=== PATIENT | male | born 1990 | race Two or more races ===

== ENCOUNTER → 2020-04-27 15:06 | Outpatient (REF) | payer MEDICAID, SELFPAY ==
--- NOTE | 2020-04-27 15:00 | CA_ITS ---
Transthoracic Echocardiogram Patient (Last, First, Middle): Angus Castro, Gender: Male Date of : 1990 Age: 30 Procedure Date: 04/27/2020 Procedure Type: Transthoracic Echocardiogram Location: OP Height: 162.56 cm Weight: 81.65 kg BSA: 1.87 m2 Heart Rate: bpm BP: 116 / 69 mmHg Rn Spine: Referring MD: Pee Villalobos MD Symptoms: Q85.00 NEURO FIBROMATOSIS Z09 FOLLOW UP CHEMOTHERAPY EXAM Study Quality: Good ECG Rhythm: Sinus Conclusions: - The left ventricular systolic function is normal. The visually estimated ejection fraction is between 60-65%. - Left ventricular global endocardial peak longitudinal strain 18.5% (normal). Findings Left Ventricle Normal left ventricular cavity size. There is normal left ventricular wall thickness. The left ventricular systolic function is normal. The visually estimated ejection fraction is between 60-65%. There is no evidence of regional wall motion abnormalities. Left ventricular global endocardial peak longitudinal strain -18.5% (normal). Right Ventricle Normal right ventricular cavity size and systolic function. Prior Study Comparison No significant change compared to prior study dated: 01/19/2020. Measurements 2D Systolic Function EF 4C: 61.10 >55% EF 2C: 61.70 >55% EF BiP: 62.20 >55% Updated in Other Vendor System with Status of Final Pee Villalobos MD electronically signed on 04/30/2020 1:54:07 PM with status of Final
== END ==
LOC: HO.CARD 15:06
PROVIDERS: PCP Internal Medicine; Visit Provider Internal Medicine
DX: Q85.00 Neurofibromatosis, unspecified (principal); Z09 Encounter for follow-up examination after completed treatment for conditions other than malignant neoplasm
CPT/HCPCS: 93308; 93356

== ENCOUNTER → 2020-05-03 13:34 | Outpatient (BNVA) | payer MEDICAID, SELFPAY | PROVIDERS: PCP Internal Medicine; Visit Provider Internal Medicine | DX: Q85.00 Neurofibromatosis, unspecified (principal); T50.995D Adverse effect of other drugs, medicaments and biological substances, subsequent encounter | CPT/HCPCS: 93005; 99212 ==

== ENCOUNTER 2022-10-12 19:00 | Emergency (ER) | payer MEDICAID, SELFPAY ==
--- NOTE | ~2022-10-12 | XR_ITS ---
EXAMINATION: XR CHEST CLINICAL INFORMATION: Cough and shortness of breath. COMPARISON: None available. TECHNIQUE: 2 views of the chest were obtained. FINDINGS: No significant abnormality is noted involving the heart, lungs, mediastinum, bony thorax or soft tissues. XR/XR chest 2V IMPRESSION: Unremarkable examination.
[2022-10-12 19:08] VITALS: BP 113/74; PULSE 107; RESP 18; TEMP 36.2; O2SAT 95; BMI 24.2
--- NOTE | 2022-10-12 19:09 | ED.URI ---
HPI - URI/Sore Throat General Chief Complaint: Dyspnea Stated Complaint: sob, cough Time Seen by Provider: 10/12/22 19:49 Source: patient and android ios developer (Mongolian) Mode of arrival: ambulatory History of Present Illness HPI Narrative: 32-year-old male who is a heavy smoker of cigarettes as well as vaping and presents with 4 days of a feeling of chest tightness, shortness of breath and cough. 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 Patient also denies any sick contacts. Related Data Home Medications Medication Instructions Recorded Confirmed lisinopril 20 mg tablet 20 mg PO DAILY 05/03/20 05/03/20 Previous Rx's Medication Instructions Recorded albuterol sulfate 90 mcg/actuation 2 puff inhalation Q4-6H PRN 10/12/22 aerosol inhaler (Ventolin HFA) shortness of breath or wheezing #8.5 grams prednisone 50 mg tablet 50 mg PO DAILY 4 days #4 tabs 10/12/22 Allergies Allergy/AdvReac Type Severity Reaction Status Date / Time No Known Allergies Allergy Verified 05/03/20 13:39 Review of Systems Review of Systems: Pertinent positives and negatives as stated in HPI PMFSH Past Medical History Source: nursing notes reviewed Medical History Chemotherapy follow-up examination Neurofibromatosis Surgical History History of facial surgery Family History Family History Father No problems noted. Mother No problems noted. Social History Social History Smoked in Last 30 Days: Yes Use of substances other than those prescribed or required for medical reasons: No Advance Directives: No Advance Directives Information Provided: No Physical Exam Vital Signs: Vital Signs: Last Vital Signs Temp 98.7 F 10/12/22 21:17 Pulse 109 H 10/12/22 21:51 Resp 18 10/12/22 21:51 BP 122/71 10/12/22 21:51 Pulse Ox 98 10/12/22 21:51 O2 Del Method Room Air 10/12/22 21:51 BMI result Body Mass Index 24.2 VITAL SIGNS: Reviewed. GENERAL: Well developed, well nourished, in no acute distress. HEAD: Normocephalic/atraumatic EYES: PERRLA, EOMI on the right EARS: Ext canals without abnormality NOSE: Nares patent bilateral OROPHARYNX: no oral lesions noted, posterior pharynx clear and non-erythematous without noted tonsillar enlargement/erythema/exudates NECK: Supple, no adenopathy LUNGS: Good inspiratory effort, coarse rhonchi throughout with mild expiratory wheeze, mild tachypnea. SpO2<98> CARDIOVASCULAR: Regular rate and rhythm without noted murmurs, no JVD or lower extremity edema. ABDOMEN: Soft, non-tender, non-distended with bowel sounds. MUSCULOSKELETAL: No tenderness, deformities, or effusions noted on gross inspection. EXTREMITIES: No cyanosis, clubbing or edema. SKIN: Inspection of the skin reveals no rashes NEUROLOGIC: Alert and oriented x 4. Strength and sensation to light touch were grossly intact x 4. Course Course Course Narrative: This is a rapid medical exam. Deferred additional HPI, ROS, PE to primary provider. 32yo male hungarian speaking with history of NF here with complaints of shortness of breath, cough, chest discomfort x 4 days. No recent travel or sick contact. +wheezing on exam. Will check CXR, viral testing, give albuterol MDI. VSS Medications Administered Discontinued Medications Generic Name Dose Route Start Last Admin Trade Name Freq PRN Reason Stop Dose Admin Albuterol Sulfate 10 mg 10/12/22 19:55 10/12/22 20:03 Albuterol Sulfate (0.083%) 2.5 Mg/3 Ml Vial.Neb INHALE 10/12/22 19:56 10 mg ONCE ONE Administration Albuterol/Ipratropium 3 ml 10/12/22 21:17 10/12/22 21:33 Albuterol/Iprat 2.5/0.5mg 3 Ml Ampul.Neb INHALE 10/12/22 21:18 3 ml ONCE ONE Administration Methylprednisolone Sodium Succinate 125 mg 10/12/22 19:55 10/12/22 20:38 Methylprednisolone Sod Succ 125 Mg/2 Ml Vial IVPUSH 10/12/22 19:56 125 mg ONCE ONE Administration Medical Decision Making Medical Decision Making MDM Narrative: 32-year-old male with history and clinical presentation in conjunction with laboratory workup my interpretation is as patient has had a COPD exacerbation with VBG demonstrating pCO2 of 62. Patient received multiple nebulized treatments, IV dose steroids, has never been hypoxic and is otherwise remained hemodynamically stable. Patient is already on Tessalon, azithromycin. Who will be discharged with a Ventolin inhaler as well as a short course of steroids and strict instructions to follow-up with his primary care provider. Differential Diagnosis Please see the discussion above Lab Data Please see the discussion above 10/12/22 20:35 10/12/22 20:35 Labs: Lab Results 10/12/22 10/12/22 10/12/22 Range/Units 19:23 20:35 20:35 WBC 8.6 (4.8-10.8) X10*3/uL RBC 6.85 H (4.60-5.80) X10*6/uL Hgb 13.9 L (14.0-18.0) g/dl Hct 45.4 (42.0-52.0) % MCV 66.3 L (80.0-98.0) fL MCH 20.3 L (27.0-33.0) pg MCHC 30.6 L (31.0-36.0) g/dl RDW 17.2 H (11.0-16.0) % Plt Count 211 (160-400) X10*3/uL MPV 9.7 (9.4-12.4) fL Immature Gran % (Auto) 0.1 (0.0-0.4) % Neut % (Auto) 60.7 (45-73) % Lymph % (Auto) 24.0 (20-40) % Leslie % (Auto) 6.5 (2-11) % Eos % (Auto) 8.1 H (0-4) % Baso % (Auto) 0.6 (0-2) % Lymph # (Auto) 2.1 (1.2-4.9) X10*3/uL Leslie # (Auto) 0.6 (0.1-1.2) X10*3/uL Eos # (Auto) 0.7 H (0.0-0.4) X10*3/uL Baso # (Auto) 0.1 (0.0-0.2) X10*3/uL Abs Immat Gran (auto) 0.01 (0.00-0.03) X10*3/uL Absolute Neuts (auto) 5.2 (2.0-8.3) x10*3/uL Absolute Nucleated RBC 0.000 (0.0-0.012) X10*3/uL Nucleated RBC % (auto) 0.0 (0.0-0.2) /100WBC VBG pH (7.32-7.43) VBG pCO2 mmHg VBG pO2 mmHg VBG HCO3 (22-26) mmol/L VBG O2 Saturation % VBG Base Excess mmol/L Sodium 145 (135-145) mmol/L Potassium 3.8 (3.3-5.1) mmol/L Chloride 107 (96-108) mmol/L Carbon Dioxide 27 (22-29) mmol/L Anion Gap 15 (12-20) BUN 22 H (9-16) mg/dL Creatinine 1.06 (0.5-1.4) mg/dL Estim Creat Clear Calc 91.9 Estimated GFR > 60 Random Glucose 103 (60-115) mg/dL Calcium 10.0 (8.4-10.2) mg/dL Total Bilirubin 0.7 (0.0-1.0) mg/dL AST 13 (5-37) U/L ALT 13 (0-40) U/L Alkaline Phosphatase 72 (39-117) U/L B-Natriuretic Peptide (<100) pg/mL Total Protein 7.8 (6.5-8.0) g/dL Albumin 4.4 (3.5-5.0) g/dL Influenza Type A (PCR) NEGATIVE (Negative) Influenza Type B (PCR) NEGATIVE (Negative) RSV RNA Qual (PCR) NEGATIVE (Negative) SARS-CoV-2 RNA (RT-PCR) NEGATIVE (Negative) 10/12/22 10/12/22 Range/Units 20:35 20:38 WBC (4.8-10.8) X10*3/uL RBC (4.60-5.80) X10*6/uL Hgb (14.0-18.0) g/dl Hct (42.0-52.0) % MCV (80.0-98.0) fL MCH (27.0-33.0) pg MCHC (31.0-36.0) g/dl RDW (11.0-16.0) % Plt Count (160-400) X10*3/uL MPV (9.4-12.4) fL Immature Gran % (Auto) (0.0-0.4) % Neut % (Auto) (45-73) % Lymph % (Auto) (20-40) % Leslie % (Auto) (2-11) % Eos % (Auto) (0-4) % Baso % (Auto) (0-2) % Lymph # (Auto) (1.2-4.9) X10*3/uL Leslie # (Auto) (0.1-1.2) X10*3/uL Eos # (Auto) (0.0-0.4) X10*3/uL Baso # (Auto) (0.0-0.2) X10*3/uL Abs Immat Gran (auto) (0.00-0.03) X10*3/uL Absolute Neuts (auto) (2.0-8.3) x10*3/uL Absolute Nucleated RBC (0.0-0.012) X10*3/uL Nucleated RBC % (auto) (0.0-0.2) /100WBC VBG pH 7.38 (7.32-7.43) VBG pCO2 62 mmHg VBG pO2 41 mmHg VBG HCO3 37 H (22-26) mmol/L VBG O2 Saturation 65.0 % VBG Base Excess 9.8 mmol/L Sodium (135-145) mmol/L Potassium (3.3-5.1) mmol/L Chloride (96-108) mmol/L Carbon Dioxide (22-29) mmol/L Anion Gap (12-20) BUN (9-16) mg/dL Creatinine (0.5-1.4) mg/dL Estim Creat Clear Calc Estimated GFR Random Glucose (60-115) mg/dL Calcium (8.4-10.2) mg/dL Total Bilirubin (0.0-1.0) mg/dL AST (5-37) U/L ALT (0-40) U/L Alkaline Phosphatase (39-117) U/L B-Natriuretic Peptide < 10 (<100) pg/mL Total Protein (6.5-8.0) g/dL Albumin (3.5-5.0) g/dL Influenza Type A (PCR) (Negative) Influenza Type B (PCR) (Negative) RSV RNA Qual (PCR) (Negative) SARS-CoV-2 RNA (RT-PCR) (Negative) Independent Interpretation I performed an independent interpretation of an: EKG Interpretation: Normal sinus rhythm, HR-90, no STEMI, [place]/QRS/QTC is within normal limits. Radiology Impression Radiologist Impression: My interpretation is in agreement with radiology's impression. External Record Review External record reviewed: Prior outpatient labs Discharge Plan Discharge Clinical Impression: COPD exacerbation Patient Disposition: Home, Self-Care Instructions: COPD (Chronic Obstructive Pulmonary Disease) (ED) Additional Instructions: 1. astanif harley ray'panchitoat ezequiel odonnell. 2. yurjashantell 'iikmal jimenezawradale quilesasiandres lovellshpatty. 3. laqirina moralestajasbir wasashli gaytanigrant stokesjiantonia andersenastinsusana haile 'latonialashantell valencia altanafusi. 4. vincentrlance ray'ros zimmerman. 1. Resume all medications that you are currently taking. 2. Please complete the short course of steroids. 3. I have given you a prescription for an inhaler which you need to use as prescribed for feelings of shortness of breath. 4. Please follow-up with your primary care provider tomorrow. Prescriptions: New albuterol sulfate [Ventolin HFA] 90 mcg/actuation HFA aerosol inhaler 2 puff inhalation Q4-6H PRN (Reason: shortness of breath or wheezing) Qty: 8.5 0RF prednisone 50 mg tablet 50 mg PO DAILY 4 Days Qty: 4 0RF No Action lisinopril 20 mg tablet 20 mg PO DAILY
--- NOTE | 2022-10-12 19:44 | ECG_ITS ---
Test Reason : chest pain Blood Pressure : / mmHG Vent. Rate : 090 BPM Atrial Rate : 090 BPM P-R Int : 158 ms QRS Dur : 078 ms QT Int : 342 ms P-R-T Axes : 065 081 066 degrees QTc Int : 418 ms Normal sinus rhythm Normal ECG No previous ECGs available Referred By: Generic ED Physician Electronically Signed By:ISABELL HOU MD
[2022-10-12] MEDS: Albuterol Sulfate (0.083%) 2.5 MG/3 ML VIAL.NEB 10 MG INHALE (20:03)
[2022-10-12 20:04] VITALS: PULSE 94; RESP 12; O2SAT 100
[2022-10-12 20:24] LABS: Influenza A PCR NEGATIVE (Negative); Influenza B PCR NEGATIVE (Negative); Resp Syncy Virus RNA Qual PCR NEGATIVE (Negative); SARS COV2 PCR INHOUSE NEGATIVE (Negative)
[2022-10-12] MEDS: methylPREDNISolone Sod Succ 125 MG/2 ML VIAL IVPUSH (20:38)
[2022-10-12 20:41] VITALS: BP 156/74; PULSE 117; RESP 24; TEMP 37.1; O2SAT 100
[2022-10-12 20:41] LABS: MANUAL DIFF FLAG NO
[2022-10-12 20:42] LABS: Basophils Absolute Auto 0.1 X10*3/uL (0.0-0.2); Basophils Percent Auto 0.6 % (0-2); Eosinophils Absolute Auto 0.7 X10*3/uL (0.0-0.4); Eosinophils Percent Auto 8.1 % (0-4); Hematocrit 45.4 % (42.0-52.0); Hemoglobin 13.9 g/dl (14.0-18.0); Imm Gran Abs Auto 0.01 X10*3/uL (0.00-0.03); Imm Gran Pct Auto 0.1 % (0.0-0.4); Lymphocytes Absolute Auto 2.1 X10*3/uL (1.2-4.9); Mean Corpuscular HGB Conc 30.6 g/dl (31.0-36.0); Mean Corpuscular Hemoglobin 20.3 pg (27.0-33.0); Mean Corpuscular Volume 66.3 fL (80.0-98.0); Mean Platelet Volume 9.7 fL (9.4-12.4); Monocytes Absolute Auto 0.6 X10*3/uL (0.1-1.2); Monocytes Percent Auto 6.5 % (2-11); Neutrophils Absolute Auto 5.2 x10*3/uL (2.0-8.3); Neutrophils Percent Auto 60.7 % (45-73); Platelet Count 211 X10*3/uL (160-400); Red Blood Count 6.85 X10*6/uL (4.60-5.80); Red Cell Distribution Width 17.2 % (11.0-16.0); White Blood Count 8.6 X10*3/uL (4.8-10.8)
[2022-10-12 20:45] LABS: VBG Base Excess 9.8 mmol/L; VBG HCO3 37 mmol/L (22-26); VBG pCO2 62 mmHg; VBG pH 7.38 (7.32-7.43); VBG pO2 41 mmHg
[2022-10-12 20:47] LABS: Venous Blood Gas Refer to POC result
[2022-10-12 20:56] LABS: Alanine Aminotransferase 13 U/L (0-40); Albumin Level 4.4 g/dL (3.5-5.0); Alkaline Phosphatase 72 U/L (39-117); Anion Gap 15 (12-20); Aspartate Amino Transferase 13 U/L (5-37); Bilirubin Total 0.7 mg/dL (0.0-1.0); Blood Urea Nitrogen 22 mg/dL (9-16); Carbon Dioxide 27 mmol/L (22-29); Chloride 107 mmol/L (96-108); Creatinine Clr Calc Pharmacy 91.9; Estimated Glomerular Filt Rate > 60; Glucose Random 103 mg/dL (60-115); Potassium 3.8 mmol/L (3.3-5.1); Sodium 145 mmol/L (135-145); Total Protein 7.8 g/dL (6.5-8.0)
[2022-10-12 21:02] LABS: B Type Natriuretic Peptide < 10 pg/mL (<100)
[2022-10-12 21:17] VITALS: BP 121/73; PULSE 105; RESP 17; TEMP 37.1; O2SAT 98
[2022-10-12] MEDS: Albuterol/Iprat 2.5/0.5MG 3 ML AMPUL.NEB INHALE (21:33)
[2022-10-12 21:34] VITALS: PULSE 116; RESP 22; O2SAT 98
[2022-10-12 21:51] VITALS: BP 122/71; PULSE 109; RESP 18; O2SAT 98
--- NOTE | 2022-10-12 21:56 | PC.NURSE ---
Pt aox4 resting at the bedside in no apparent distress. Khmer supervisor contact lens utilized. Pt reports improved breathing after albuterol treatments. Pain continues, 6/10, on the chest with cough. Sinus tach on the monitor with hr 113. Breaths are even, regular and unlabored with equal chest rises. O2 sat 98% RA. RR: 22. Abd soft and nontender with + bowel sounds in all quadrants. Skin is warm pink and dry. No apparent distress noted. Pt expresses interest in quitting smoking. Smoking cessation education provided and advised to follow up with pcp for further treatment evaluation. Pt aware of plan of care.
--- NOTE | 2022-10-12 22:51 | PC.NURSE ---
Discharge instructions reviewed with pt via video order builder. Pt verbalizes understanding and all questions answered. IV line removed. Pt tolerated well. Pt ambulatory with steady gait at discharge. No apparent distress noted.
== END 2022-10-12 22:51 | disposition home or self-care (01) ==
PROVIDERS: Emergency Provider Student in an Organized Health Care Education/Training Program
DX: J44.1 Chronic obstructive pulmonary disease with (acute) exacerbation (principal); R06.02 Shortness of breath; R05.9 Cough, unspecified; R07.89 Other chest pain; Z79.899 Other long term (current) drug therapy; Z20.822 Contact with and (suspected) exposure to COVID-19; Z20.828 Contact with and (suspected) exposure to other viral communicable diseases
CPT/HCPCS: 0241U; 36415; 71046; 80053; 82803; 83880; 85025; 93005; 94640; 96374; 99284; 99285; J2930

== ENCOUNTER 2023-01-15 14:08 | Emergency (ER) | payer MEDICAID, SELFPAY | END 2023-01-15 16:23 | disposition left against medical advice (07) | PROVIDERS: Emergency Provider Emergency Medicine; PCP Internal Medicine | DX: R07.89 Other chest pain (principal) ==

== ENCOUNTER 2023-02-07 14:00 | Outpatient (RCR) | payer MEDICAID, SELFPAY | END 2023-03-12 11:46 | disposition home or self-care (01) | LOC: HO.PT 14:00 | PROVIDERS: PCP Internal Medicine; Visit Provider Internal Medicine | DX: M54.16 Radiculopathy, lumbar region (principal) | CPT/HCPCS: 97110; 97140; 97162 ==

== ENCOUNTER 2023-03-12 13:39 | Outpatient (AMB) | payer MEDICAID, SELFPAY ==
--- NOTE | 2023-03-12 13:44 | A.OFFVIS_ITS ---
Intake Vital Signs 3 03/12/23 13:46 Height 5 ft 5 in Weight 165 lb BMI 27.5 Blood Pressure Location Lt brachial Position Sitting Respiration 12 Pulse Source Pulse Oximeter Intake Visit Reasons: LUMBAR RADICULOPATHY Feller Operator Required: Yes Feller Operator Name: [id number] Norma Allergies No Known Allergies Allergy (Verified 03/12/23 13:47) Medication List - Last Reconciled 03/12/23 by Mariann Echeverria LPN albuterol sulfate 90 mcg/actuation (Ventolin HFA) 2 puffs inhalation Q4-6H PRN lisinopril 20 mg PO DAILY prednisone 50 mg PO DAILY 4 days HPI LUMBAR RADICULOPATHY 2 HPI0 Details 33-year-old male who presents today to t he office for an evaluation of lumbar radiculopathy. A certified Bengali parking enforcement officer was present during the visit. The patient is status post posterior L4-L5 discectomy/decompression on 04/12/[address] Walker in [place]. The patient reports chronic back pain that started worsening about four months ago. The pain has been waxing and waning since onset. He rates his pain at 6/10 in intensity. His pain is worse on the right side than left side. The pain is moderate and symptoms aggravate by bending. He has tried NSAIDs and muscle relaxant for the symptoms with mild relief. He denies any neurologic deficit. He had an MRI scan that showed some worsening listhesis, both laterally and anteriorly, of the L3 and L4 vertebral bodies with unroofing of the associated discs. There was no significant compression of the nerve roots. He has not consulted spine surgery recently. [facility] Medical History (Updated 03/13/23 @ 12:34 by Nate Braun MD) Dermatitis Primary hypertension Lumbar radiculopathy Chemotherapy follow-up examination Neurofibromatosis Surgical History History of facial surgery Family History Father No problems noted. Mother No problems noted. Review of Systems Const All systems reviewed & are unremarkable except as noted in HPI and below Physical Exam Vital Signs: Last Vital Signs Resp 12 03/12/23 13:46 BMI result Body Mass Index 27.5 General: Appears afebrile. Alert and oriented. Mood and affect appropriate. Follows and participates in conversation appropriately. Respiratory effort is unlabored. Able to transition from sit to stand unassisted. Ambulates with bilaterally normal heel strike and toe off. There are well-healed scars from prior surgeries in the lumbar spine as well as resection of soft tissue tumors within the paraspinal region. Results Reviewed Results Reviewed: 02/09/23: MR LUMBAR SPINE WO CONTRAST Assessment & Plan Assessment & Plan (1) Spinal instability of lumbosacral region: Code(s): M53.2X7 - Spinal instabilities, lumbosacral region (2) Spondylolisthesis of lumbar region: Code(s): M43.16 - Spondylolisthesis, lumbar region Plan 33-year-old male with a past history of L4-5 diskectomy/decompression for a disc herniation now presenting with axial low back pain. His recent MRI shows progression of spondylolisthesis that was previously seen on his MRI in 2019. He has both anterior as well as lateral listhesis in the lumbar spine. While he does not have any neurologic deficits at this time, I feel that he should discuss this progressive spondylolisthesis with a spine surgeon to assess the need for stabilization/fusion. I encouraged him to seek a surgical consult to discuss this issue. If he is deemed nonsurgical we can consider spinal cord stimulation for his axial low back pain, with the understanding that his spondylolisthesis will likely continue to progressively worsen over time. A referral was provided to Dr. Ogden at [facility] neurosurgery for consultation upon patient's request. Scribed for Dr. Braun by Jaswant France, medical practitioners, on 03/12/2023. I, Dr. Braun, have personally reviewed and agree with the information entered by the scribe. Orders: Referrals 2 Neurosurgery Referral M53.2X7 - Spinal instabilities, lumbosacral region Coding Level of Care Code New Pt Level 4 (44095) Diagnoses Spinal instability of lumbosacral region M53.2X7 Spondylolisthesis of lumbar region M43.16
[2023-03-12 13:46] VITALS: RESP 12; BMI 27.5
== END 2023-03-12 14:55 | disposition home or self-care (01) ==
PROVIDERS: PCP Internal Medicine; Referring Provider Internal Medicine; Visit Provider Internal Medicine
DX: M53.2X7 Spinal instabilities, lumbosacral region (principal); M43.16 Spondylolisthesis, lumbar region
CPT/HCPCS: 99204

== ENCOUNTER → 2023-03-12 13:39 | Outpatient (BNVA) | payer MEDICAID, SELFPAY | PROVIDERS: PCP Internal Medicine; Referring Provider Internal Medicine; Visit Provider Internal Medicine | DX: M53.2X7 Spinal instabilities, lumbosacral region (principal); M43.16 Spondylolisthesis, lumbar region | CPT/HCPCS: 99202 ==

== ENCOUNTER 2023-10-29 09:57 | Outpatient (AMB) | payer MEDICAID, SELFPAY ==
--- NOTE | 2023-10-29 10:24 | MHC.OFFVIS ---
Vital Signs 10/29/23 10:25 Height 5 ft 5 in Weight 180 lb 12.465 oz BMI 30.1 BP 110/70 Blood Pressure Location Lt brachial Position Sitting Pulse 78 Pulse Source Pulse Oximeter Pulse Oximetry (%) 98 Oxygen Delivery Method Room Air Intake Visit Reasons: asthma Intake Note: pt is here as a new patient, he states very little shortness of breath, had admission at [facility] 3 months ago for shortness of breath Accounts Payable Or Receivable Clerk Required: Yes Accounts Payable Or Receivable Clerk Name: [id number] Allergies No Known Allergies Allergy (Verified 10/29/23 11:36) Medication List - Last Reconciled 10/29/23 by Cynthia Shook MD albuterol sulfate 90 mcg/actuation (Ventolin HFA) 2 puffs inhalation Q4-6H PRN fluticasone furoate-vilanterol 200-25 mcg/dose (Breo Ellipta) 1 inh inhalation DAILY lisinopril 20 mg PO DAILY Do you need a note to return to daycare/school/sports/work: No HPI HPI asthma: Details: THIS GENTLEMAN IS 33 YEARS OLD, ORIGINALLY FROM [place], SPEAKS ONLY [place]HAL[place], COMES HERE TODAY FOR THE 1ST TIME, FOR EVALUATION AND MANAGEMENT OF BRONCHIAL ASTHMA. HE IS ACCOMPANIED BY HIS FATHER, WHO SPEAKS SOME THAI. LITHOGRAPHIC ETCHER WAS USED FOR BETTER COMMUNICATION. 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 HE HAS BEEN A NONSMOKER. IN THE LAST 3 MONTHS HE HAS BEEN SEEN AT [facility] A FEW TIMES FOR BREATHING TROUBLE. HE WAS STARTED ON BREO 200-251 INHALATION DAILY, AND ALSO GIVEN VENTOLIN 2 PUFFS Q 6 HOURS P.R.N.. SINCE HE IS ON BREO HIS BREATHING HAS BEEN OKAY, HE DOES HAVE MILD INTERMITTENT COUGH, BUT HAS HAD NO WHEEZING. HE CAN WALK AROUND WITHOUT ANY SHORTNESS OF BREATH. HE HAS HAD NO RECURRENT RESPIRATORY INFECTION. HE HAS NOT NEEDED TO USE THE RESCUE INHALER MUCH. [facility] Medical History (Updated 10/29/23 @ 11:48 by Cynthia Shook MD) Asthma Dermatitis Primary hypertension Lumbar radiculopathy Chemotherapy follow-up examination Neurofibromatosis Surgical History History of facial surgery Family History Father No problems noted. Mother No problems noted. Review of Systems Const All systems reviewed & are unremarkable except as noted in HPI and below Eyes Reports other (LEFT EYE, ATROPHIC AND BLIND SINCE ) ENT Reports no additional complaints Card Reports no additional complaints Resp Reports as per HPI GI Reports no additional complaints Reports no additional complaints Musc Reports no additional complaints Skin/Breast Reports system reviewed and no additional complaints, except as documented Neuro Reports no additional complaints Psych Reports no additional complaints Endo Reports no additional complaints Ronnie/Lymph Reports no additional complaints Physical Exam Vital Signs: Last Vital Signs Pulse 78 10/29/23 10:25 BP 110/70 10/29/23 10:25 Pulse Ox 98 10/29/23 10:25 Oxygen Delivery Method Room Air 10/29/23 10:25 BMI result Body Mass Index 30.1 Const General: healthy appearing, comfortable, no acute distress, alert and awake Orientation/consciousness: patient oriented x3 HEENT Other: 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 Head: Yes normal to inspection General nose exam: No nasal polyps present and No nasal discharge present Face and sinus: Yes sinuses nontender Mouth: oropharynx normal Throat: Yes posterior oropharynx normal Eyes Other: LEFT EYE IS ATROPHIC. HE IS BLIND ON THE LEFT SIDE RIGHT EYE IS NORMAL Neck Neck: Yes normal visual inspection, Yes no lymphadenopathy, Yes trachea midline and Yes no JVD Thyroid: Thyroid normal Chest Chest palpation & inspection: normal inspection of the chest, normal palpation of entire chest wall and no tenderness Resp Other: TODAY THE PERCUSSION NOTE IS NORMAL AND HIS BREATH SOUNDS ARE EQUAL ON BOTH SIDES. Effort & Inspection: normal respiratory effort Auscultation: clear to auscultation bilaterally, no crackles and no wheezes Cardio Palpation: normal PMI Rate: regular rate Rhythm: regular rhythm Heart sounds: no gallops and no murmurs Peripheral pulses: Peripheral pulses 2+ throughout GI Palpation (GI): Soft to palpation, nontender, No hepatosplenomegaly present and no masses Auscultation: normal bowel sounds Back/Spine/Pelvis Thoracic/Lumbar Spine: thoracic and lumbar spine normal to inspection, thoraco-lumbar ROM limited and other (SURGICAL SCARS FROM PREVIOUS SURGICAL PROCEDURES) Skin General skin exam: no rashes or lesions noted Neuro General: patient oriented x3 and no focal motor deficits Cranial nerves: Yes CN's II-XII intact bilaterally Extrem General: Yes normal to inspection, Yes no clubbing, cyanosis or edema and Yes no calf tenderness Psych Appearance: grossly normal and well kempt Speech and movement: Normal speech and movement present Assessment & Plan Assessment & Plan (1) Asthma: Comment: PER HISTORY HE SEEMS TO HAVE BRONCHIAL ASTHMA. HISTORY OF RECENT ADMISSIONS AT [facility]. PRESENTLY DOING WELL ON BREO 200-25 1 INHALATION DAILY, AND NOT REQUIRING TO USE THE RESCUE INHALER MUCH Code(s): J45.909 - Unspecified asthma, uncomplicated Category: Medical Plan: ADVISED TO CONTINUE USING BREO 200-25 1 INHALATION DAILY. USE VENTOLIN/ PROAIR HFA 2 PUFFS Q 6 HOURS ONLY P.R.N.. DISCUSSED WITH HIS FATHER WHO WAS THERE, ABOUT BRONCHIAL ASTHMA AND HE HAS EXPLAINED TO WILD . PLAN TO DO PULMONARY FUNCTION TEST ( SPIROMETRY ) ON HIS NEXT VISIT Will check him in about 2 months after he returns from [place] . Coding Level of Care Code New Pt Level 3 (39355) Diagnoses Asthma J45.909
[2023-10-29 10:25] VITALS: BP 110/70; PULSE 78; O2SAT 98; BMI 30.1
== END 2023-10-29 10:51 | disposition home or self-care (01) ==
PROVIDERS: PCP Internal Medicine; Referring Provider Internal Medicine; Visit Provider Internal Medicine
DX: J45.909 Unspecified asthma, uncomplicated (principal)
CPT/HCPCS: 99203

== ENCOUNTER → 2023-10-29 09:57 | Outpatient (BNVA) | payer MEDICAID, SELFPAY | PROVIDERS: PCP Internal Medicine; Visit Provider Internal Medicine | DX: J45.909 Unspecified asthma, uncomplicated (principal) | CPT/HCPCS: 99202 ==

== ENCOUNTER 2024-01-28 10:30 | Outpatient (AMB) | payer MEDICAID, SELFPAY ==
[2024-01-28 10:49] VITALS: BP 124/74; PULSE 81; O2SAT 98; BMI 30.8
--- NOTE | 2024-01-28 10:49 | MHC.OFFVIS ---
Vital Signs 01/28/24 10:49 Height 5 ft 5 in Weight 185 lb BMI 30.8 BP 124/74 Blood Pressure Location Lt brachial Position Sitting Pulse 81 Pulse Source Pulse Oximeter Pulse Oximetry (%) 98 Oxygen Delivery Method Room Air Intake Visit Reasons: Asthma Intake Note: pt is here for follow up and states he is feeling soso Chief Design Branch Required: Yes Chief Design Branch Services: Chief Design Branch Present Chief Design Branch Name: [id number] Allergies No Known Allergies Allergy (Verified 01/28/24 11:15) Medication List - Last Reconciled 01/28/24 by Cynthia Shook MD albuterol sulfate 90 mcg/actuation (Ventolin HFA) 2 puffs inhalation Q4-6H PRN fluticasone furoate-vilanterol 200-25 mcg/dose (Breo Ellipta) 1 inh inhalation DAILY lisinopril 20 mg PO DAILY Do you need a note to return to daycare/school/sports/work: No HPI HPI Asthma: Details: 33 years old gentleman, from [place] , comes for follow-up for his bronchial asthma. Using Breo 200-25 once a day , and Ventolin 2 puffs Q 4-6 hours p.r.n. which he ends up using a few times every day. Overall he is staying well, but still has mild intermittent cough and occasional bouts of wheezing. He has had no acute respiratory infection. [facility] Medical History Asthma Dermatitis Primary hypertension Lumbar radiculopathy Chemotherapy follow-up examination Neurofibromatosis Surgical History History of facial surgery Family History Father No problems noted. Mother No problems noted. Review of Systems Const All systems reviewed & are unremarkable except as noted in HPI and below Eyes Reports other (LEFT EYE, ATROPHIC AND BLIND SINCE ) ENT Reports no additional complaints Card Reports no additional complaints Resp Reports as per HPI GI Reports no additional complaints Reports no additional complaints Musc Reports no additional complaints Skin/Breast Reports system reviewed and no additional complaints, except as documented Neuro Reports no additional complaints Psych Reports no additional complaints Endo Reports no additional complaints Ronnie/Lymph Reports no additional complaints Physical Exam Vital Signs: Last Vital Signs Pulse 81 01/28/24 10:49 BP 124/74 01/28/24 10:49 Pulse Ox 98 01/28/24 10:49 Oxygen Delivery Method Room Air 01/28/24 10:49 BMI result Body Mass Index 30.8 Const General: healthy appearing, comfortable, no acute distress, alert and awake Orientation/consciousness: patient oriented x3 HEENT Other: 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 Head: Yes normal to inspection General nose exam: No nasal polyps present and No nasal discharge present Face and sinus: Yes sinuses nontender Mouth: oropharynx normal Throat: Yes posterior oropharynx normal Eyes Other: LEFT EYE IS ATROPHIC. 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 NO WHEEZES RHONCHI OR CREPITATIONS ARE HEARD TODAY. Effort & Inspection: normal respiratory effort Auscultation: clear to auscultation bilaterally, no crackles and no wheezes Cardio Palpation: normal PMI Rate: regular rate Rhythm: regular rhythm Heart sounds: no gallops and no murmurs Peripheral pulses: Peripheral pulses 2+ throughout GI Palpation (GI): Soft to palpation, nontender, No hepatosplenomegaly present and no masses Auscultation: normal bowel sounds Back/Spine/Pelvis Thoracic/Lumbar Spine: thoracic and lumbar spine normal to inspection, thoraco-lumbar ROM limited and other (SURGICAL SCARS FROM PREVIOUS SURGICAL PROCEDURES) Skin General skin exam: no rashes or lesions noted Neuro General: patient oriented x3 and no focal motor deficits Cranial nerves: Yes CN's II-XII intact bilaterally Extrem General: Yes normal to inspection, Yes no clubbing, cyanosis or edema and Yes no calf tenderness Psych Appearance: grossly normal and well kempt Speech and movement: Normal speech and movement present Office Procedures Spirometry Testing Spirometry Comments: In office spirometry completed with results given to Dr Shook. 68623- Spirometry Results Reviewed Results Reviewed: SPIROMETRY PERFORMED . FVC= 128 % FEV1=93 % FEV1/FVC = 61 FEF 25-75 = 57 % Assessment & Plan Assessment & Plan (1) Asthma: Comment: SPIROMETRY CONFIRMS THAT HE DOES MILD TO MODERATE DEGREE OF OBSTRUCTIVE AIRWAY DISORDER/ MOST LIKELY BRONCHIAL ASTHMA. IT SEEMS TO BE FAIRLY WELL CONTROLLED AT THIS TIME. PRESENTLY DOING WELL ON BREO 200-25 1 INHALATION DAILY, AND NOT REQUIRING TO USE THE RESCUE INHALER MUCH Code(s): J45.909 - Unspecified asthma, uncomplicated Category: Medical Plan: CONTINUE USING BREO 200-25 1 INHALATION DAILY REGULARLY. USE ALBUTEROL HFA 2 PUFFS Q 4-6 HOURS ONLY P.R.N. IF THERE IS PERSISTENT WHEEZING. Coding Level of Care Code Est Pt Level 3 (53031) Diagnoses Asthma J45.909 CPT Codes Spirometry - CPT: 06268- Spirometry ([id number])
== END 2024-01-28 11:53 | disposition home or self-care (01) ==
PROVIDERS: PCP Internal Medicine; Referring Provider Internal Medicine; Visit Provider Internal Medicine
DX: J45.909 Unspecified asthma, uncomplicated (principal)
CPT/HCPCS: 94010; 99213

== ENCOUNTER → 2024-01-28 10:30 | Outpatient (BNVA) | payer MEDICAID, SELFPAY | PROVIDERS: PCP Internal Medicine; Visit Provider Internal Medicine | DX: J45.909 Unspecified asthma, uncomplicated (principal) | CPT/HCPCS: 94010; 99212 ==

== ENCOUNTER 2024-03-11 13:22 | Outpatient (REF) | payer MEDICAID, SELFPAY ==
--- NOTE | ~2024-03-11 | XR_ITS ---
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 FINDINGS: Grade 2 left lateral spondylolisthesis of L4 on L5, new from prior. Left lateral lumbar scoliosis with apex at L4, increased from prior. Grade 1 retrolisthesis of L3 on L4. Vertebral body heights and intervertebral disc spaces are maintained. Lower level facet arthropathy. Moderate L3-L4 and L5-S1 neural foraminal stenosis. The paraspinal soft tissues are normal. XR/XR lumbar spine 2-3V IMPRESSION: 1. Grade 2 left lateral spondylolisthesis of L4 on L5, new from prior. 2. Left lateral lumbar scoliosis with apex at L4, increased from prior . Electronically signed by: Eufemia Jenkins DO 03/11/2024 05:32 PM JARETT
== END 2024-03-11 13:23 | disposition home or self-care (01) ==
LOC: HO.XRAY 13:22
PROVIDERS: PCP Internal Medicine; Visit Provider Internal Medicine
DX: M51.26 Other intervertebral disc displacement, lumbar region (principal)
CPT/HCPCS: 72100

== ENCOUNTER 2024-04-06 02:52 | Emergency (ER) | payer MEDICAID, SELFPAY ==
--- NOTE | ~2024-04-06 | XR_ITS ---
EXAMINATION: XR CHEST CLINICAL INFORMATION: SOB COMPARISON: October 12, 2022 TECHNIQUE: 2 views of the chest were obtained. FINDINGS: The cardiomediastinal silhouette is normal. There is no focal lung consolidation or pleural effusions. The bony structures are unremarkable. A right CVP shunt catheter is noted. XR/XR chest 2V IMPRESSION: No acute cardiopulmonary process. Electronically signed by: Andreas Looney MD 04/06/2024 03:43 AM JARETT
[2024-04-06 03:22] VITALS: BP 106/49; PULSE 93; RESP 20; TEMP 36.9; O2SAT 96; BMI 33.1
[2024-04-06 04:03] LABS: IDNOW Serial# 6674DD1D; Influenza A Negative (Negative); Influenza B2 Negative (Negative)
[2024-04-06 04:31] LABS: COVID-19 Test Negative (Negative); IDNOW Serial# 9DB6401D
[2024-04-06 04:36] VITALS: PULSE 78; RESP 20; O2SAT 96
[2024-04-06] MEDS: Albuterol Sulfate 7.5 MG, Albuterol Sulfate (0.083%) 2.5 MG 10 MG INHALE (04:39)
[2024-04-06 05:21] VITALS: BP 147/76; PULSE 96; RESP 18; TEMP 36.5; O2SAT 94
[2024-04-06] MEDS: predniSONE 20 MG TABLET 60 MG PO (05:38)
[2024-04-06] MEDS: cefuroxime axetiL 500 MG TABLET PO (05:38)
[2024-04-06] MEDS: Albuterol Sulfate 2.5 MG, Albuterol/Iprat 2.5/0.5MG 3 ML 3 ML INHALE (05:47)
--- NOTE | 2024-04-06 06:25 | ED_ITS ---
HPI - URI/Sore Throat General Chief Complaint: Upper Respiratory Symptoms Stated Complaint: SOB Time Seen by Provider: 04/06/24 04:46 Source: patient Mode of arrival: ambulatory Limitations: no limitations History of Present Illness ED Provider: HPI Narrative: Patient's history of asthma on Breo and albuterol inhaler comes here for increased shortness of breath and cough for last 2 days no fever no chills cough is mostly dry saturating 96% on room air Related Data Home Medications ?Medication ?Instructions ?Recorded ?Confirmed lisinopril 20 mg tablet 20 mg PO DAILY 05/03/20 01/28/24 fluticasone furoate 200 1 inh inhalation DAILY 10/29/23 01/28/24 mcg-vilanterol 25 mcg/dose inhalation powder (Breo Ellipta) Previous Rx's ?Medication ?Instructions ?Recorded albuterol sulfate 90 mcg/actuation 2 puff inhalation Q4-6H PRN 10/12/22 aerosol inhaler (Ventolin HFA) shortness of breath or wheezing #8.5 grams albuterol sulfate 90 mcg/actuation 2 puff inhalation Q6H PRN 04/06/24 aerosol inhaler shortness of breath or wheezing #8.5 grams cefuroxime axetil 500 mg tablet 500 mg PO BID 7 days #14 tabs 04/06/24 prednisone 20 mg tablet 40 mg (2 x 20 mg) PO DAILY #10 tabs 04/06/24 Allergies Allergy/AdvReac Type Severity Reaction Status Date / Time No Known Allergies Allergy Verified 04/06/24 03:23 Review of Systems Review of Systems: Yes all other systems are reviewed and are negative PMFSH Past Medical History Medical History Asthma Dermatitis Primary hypertension Lumbar radiculopathy Chemotherapy follow-up examination Neurofibromatosis Surgical History History of facial surgery Family History Family History Father No problems noted. Mother No problems noted. Social History Social History Alcohol intake: never Smoked in Last 30 Days: Yes Use of substances other than those prescribed or required for medical reasons: No Advance Directives: No Do you have a plan to hurt others: No Plan Physical Exam Vital Signs: Vital Signs: Last Vital Signs Temp 97.7 F 04/06/24 05:21 Pulse 96 04/06/24 05:21 Resp 18 04/06/24 05:21 BP 147/76 H 04/06/24 05:21 Pulse Ox 94 04/06/24 05:21 O2 Del Method Room Air 04/06/24 05:21 BMI result Body Mass Index 33.1 Appearance: Alert. Oriented X3. No acute distress. Eyes: Enucleated left eye with postop changes ENT: Pharynx normal. Oral Mucosa moist Neck: Normal inspection. Neck supple. CVS: Normal heart rate and rhythm. Pulses normal. Respiratory: No respiratory distress. Equal air entry bilateral, bilateral wheezing no crackles Abdomen: Soft and nontender. Bowel sounds are present, no mass palpable, no CVA tenderness Skin: Skin warm and dry. Normal skin color. Normal skin turgor. Extremities: No lower extremity edema. No calf tenderness Neuro: Oriented X 3. No motor deficit. Medications Administered Discontinued Medications Generic Name Dose Route Start Last Admin Trade Name Freq PRN Reason Stop Dose Admin Albuterol Sulfate 7.5 mg/ 10 mg 04/06/24 04:31 04/06/24 04:39 Albuterol Sulfate 2.5 mg INHALE 04/06/24 04:32 10 mg ONCE ONE Administration Cefuroxime Axetil 500 mg 04/06/24 05:20 04/06/24 05:38 Cefuroxime Axetil 500 Mg Tablet PO 04/06/24 05:21 500 mg ONCE ONE Administration Albuterol Sulfate 2.5 mg/ 0 mg 04/06/24 05:21 04/06/24 05:47 Albuterol/Ipratropium 3 ml INHALE 04/06/24 05:22 3.5 dose ONCE ONE Administration Prednisone 60 mg 04/06/24 05:20 04/06/24 05:38 Prednisone 20 Mg Tablet PO 04/06/24 05:21 60 mg ONCE ONE Administration Medical Decision Making Medical Decision Making MDM Narrative: Patient with asthma/COPD with increased wheezing on Breo and albuterol inhaler at home will give a course of prednisone along with antibiotics Ceftin for bronchitis Differential Diagnosis Differential Diagnoses: The differential diagnosis associated with the presentation includes Lab Data MDM Lab Attestation statement: I reviewed the patient's lab results. Labs: Lab Results 04/06/24 Range/Units 03:29 COVID-19 (DARYA) Negative (Negative) COVID-19 Clin Com See Note Influenza Type A (RICHARD) Negative (Negative) Influenza Type B (RICHARD) Negative (Negative) Influenza A & B Note See Note Independent Interpretation I performed an independent interpretation of an: Plain X-Ray Interpretation: NAD Radiology Impression Discussion of test interpretation with radiology: I have reviewed the radiologist's reading. 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 Prescriptions: New cefuroxime axetil 500 mg tablet 500 mg PO BID 7 Days Qty: 14 0RF albuterol sulfate 90 mcg/actuation HFA aerosol inhaler 2 puff inhalation Q6H PRN (Reason: shortness of breath or wheezing) Qty: 8.5 0RF prednisone 20 mg tablet 40 mg PO DAILY Qty: 10 0RF No Action albuterol sulfate [Ventolin HFA] 90 mcg/actuation HFA aerosol inhaler 2 puff inhalation Q4-6H PRN (Reason: shortness of breath or wheezing) Qty: 8.5 0RF lisinopril 20 mg tablet 20 mg PO DAILY fluticasone furoate-vilanterol [Breo Ellipta] 200-25 mcg/dose blister with device 1 inh inhalation DAILY Print Language: Faroese
[2024-04-06 07:30] VITALS: BP 138/68; PULSE 106; RESP 20; TEMP 37.2; O2SAT 94
[2024-04-06 07:31] VITALS: BP 138/68; PULSE 106; RESP 20; TEMP 37.2; O2SAT 94
== END 2024-04-06 07:31 | disposition home or self-care (01) ==
PROVIDERS: Emergency Provider Internal Medicine; PCP Internal Medicine
DX: J40 Bronchitis, not specified as acute or chronic (principal); R06.02 Shortness of breath; R05.9 Cough, unspecified; Z11.52 Encounter for screening for COVID-19; Z79.899 Other long term (current) drug therapy
CPT/HCPCS: 71046; 87502; 87635; 94640; 99284

== ENCOUNTER 2024-04-17 14:00 | Outpatient (RCR) | payer MEDICAID, SELFPAY | END 2024-07-18 07:50 | disposition home or self-care (01) | LOC: HO.PTCHIC 14:00 | PROVIDERS: PCP Internal Medicine; Visit Provider Internal Medicine | DX: M54.16 Radiculopathy, lumbar region (principal); Q85.01 Neurofibromatosis, type 1 | CPT/HCPCS: 97110; 97140; 97162 ==

== ENCOUNTER 2024-09-01 15:53 | Outpatient (AMB) | payer MEDICAID, SELFPAY ==
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
[2024-09-01 16:02] VITALS: BP 130/88; PULSE 77; O2SAT 98; BMI 32.4
--- OUTSIDE RECORDS SUMMARY | 2024-09-01 17:21 | XMS_ITS | Clinical Summary ---
Author Organization [facility] ity Address [address] [place] [address] Care Team Providers Care Actor Understudy Name Role Phone Winifred Fenton MD Primary Care Provider [phone] Social History Tobacco Use Types Packs/Day Years Used Date Smoking Tobacco: Never Assessed Sex and Gender Information Value Date Recorded Sex Assigned at Not on file Legal Sex Male 12:58 AM EST Gender Identity Not on file Sexual Orientation Not on file Plan of Treatment Health Maintenance Due Date Last Done Comments DTaP,Tdap,and Td Vaccines (1 - Tdap) 02/04/2011 Hepatitis B Vaccines (1 of 3 - 19+ 3-dose series) 02/04/2011 Depression Screening 04/02/2022 HIV Screening 04/02/2022 Hepatitis C Screening 04/02/2022 Social Influencers of Health Screening 04/02/2022 COVID-19 Vaccine (2023-2 5 season) 2023 Influenza Vaccine (Season Ended) 2024 HIB Vaccines Aged Out No longer eligi ble based on patient's age to complete this topic HPV Vaccines Aged Out No longer eligi ble based on patient's age to complete this topic Hepatitis A Vaccines Aged Out No long er eligible based on patient's age to complete this topic IPV Vaccines Aged Out No longer eligi ble based on patient's age to complete this topic MMR Vaccines Aged Out No longer eligi ble based on patient's age to complete this topic Meningococcal ACWY Vaccine Aged Out N o longer eligible based on patient's age to complete this topic Meningococcal B Vaccine Aged Out No l onger eligible based on patient's age to complete this topic Pneumococcal Vaccine: Pediat rics (0 to 5 Years) and At-Risk Patients (6 to 64 Years) Aged Out No longer eligible b ased on patient's age to complete this topic RSV Immunization Patients Un sophia 20 months Aged Out No longer eligible b ased on patient's age to complete this topic Varicella Vaccines Aged Out No longer eligible based on patient's age to complete this topic Care Teams Actor Understudy Relationship Specialty Start Date End Date Winifred Fenton MD [address] [place] [address] PCP - General Internal Medicine 08/18/19
--- OUTSIDE RECORDS SUMMARY | 2024-09-01 17:21 | XMS_ITS | Clinical Summary ---
Author Organization [facility] Address [address] [place] [address] Care Team Providers Care Floral Associate Name Role Phone Unavailable Primary Care Provider Unavailabl e Source Comments PLEASE NOTE, if this patient is a minor, it may be UNLAWFUL to discuss sensitive information that is contained in these records (such as FAMILY PLANNING, MENTAL HEALTH or SUBSTANCE ABUSE) with the minor patient's parent or other person without the patient's specific authorization.[facility] Allergies No known active allergies Medications nicotine (NICODERM CQ) 21-14-7 mg/24 hr patchIndication s:Tobacco abuse disorder Place 1 Patch onto the skin once daily (every 24 hours) 56 Patch 7 Active triamcinolone (KENALOG) 0.1 % ointmentIndicat ions:Dermatitis Apply topically 2 (two) times daily Per derm 15 g 3 8 Active mirtazapine (REMERON) 15 mg tabletIndicatio ns:Depression due to physical illness Take 1 Tab by mouth nightly at bedtime 30 Tab 2 8 Active DULoxetine (CYMBALTA) [address] capsuleIndicati ons:PTSD (post-traumatic stress disorder),Depre ssion due to physical illness Take 1 Cap by mouth once daily Swallow whole, do not crush or chew. 30 Cap 2 8 Active clobetasol (TEMOVATE) 0.05 % creamIndication s:Dermatitis APPLY TO AFFECTED AREA (THIN FILM) TWICE A DAY DIRECTED 45 g 1 8 Active naproxen (NAPROSYN) 500 mg tabletIndicatio ns:Other chest pain TAKE 1 TAB BY MOUTH 2 (TWO) TIMES DAILY WITH A MEAL 30 Tab 8 Active Active Problems Problem Noted Date Diagnosed Date Other chest pain 11/03/2017 Overview (11/03/2017): 08/29/17 - [facility] Cardiology: c/o random chest discomfort across upper precordium x 2-3 months. Hx of unremarkable ECHO. Pain somewhat different from his GERD. Dx: atypical chest pain, this is highly unlikely to be cardiac in origin. Could be related to his GERD. He continue to smoke and takes Naprosyn 500 mg BID. Plan: Stop smoking, try Zantac or Omeprazole OTC. Does not needs further cardiac work-up. Asthma ([facility]) 10/13/2017 Overview (10/13/2017): 10/03/17 - Maria Esther at [facility] ED c/o cp, sob, and nonproductive cough . O2 sat 93%. Treated with Albuterol x 3 and Prednisone in ED. CRX neg. Discharged with Albuterol and prednisone 20 mg BID x 5 days. 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 12/02/2014 Overview (09/11/2017): Pt is being followed by Dr. Yasmany Richards at [facility] for neurofibromatosis 01/30/17 NF clinic - potential new treatment for plexiform neurofibromas was discussed with pt (selumetinib). Dr. Richards will try to get off label approval for this therapy. Pt has F/U appt in 6 months and had an appt for ECHO on 05/16/17 to determine whether he can tolerate this treatment . 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 Waiting for non-FDA approved drug (Selumetinib) for get approved vs for the NF Binimetinib trial to open at [facility] (within several months). Recommend increasing Duloxetine for his ongoing depression and back pain. Will order MRI to look for tumors of R middle finger. F/U 3 mos. 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 S/p multiple debulking surgeries left facial NF most recent 05/18/[address] [facility] Resolved Problems Problem Noted Date Diagnosed Date Resolved Date Moderate episode of recurren t major depressive disorder 12/21/2015 11/27/2016 Immunizations Immunization Administration Dates Next Due Flu, Preservative Free 01/19/2017 MMR (MMR II/Priorix) 10/02/2014 PPD 10/16/2014 Social History Tobacco Use Types Packs/Day Years Used Date Smoking Tobacco: Every Day Cigarettes 1 8 Smokeless Tobacco: Never Comments:also hooka. also mcelroy s e.cigarretts Alcohol Use Standard Drinks/Week Comments No 0 (1 standard drink = 0.6 oz pur e alcohol) Social Connections Answer Date Recorded Social Connections and Isolation 0 12/22/2018 Financial Resource Strain Answer Date R ecorded Financial Resource Strain 0 2018 Stress Answer Date Recorded Stress 0 12/22/2018 Physical Activity Answer Date Recorded Physical Activity 0 12/22/2018 Food Insecurity Answer Date Recorded Food 0 12/22/2018 Transportation Needs Answer Date Record ed Transportation 0 12/22/2018 Housing Stability Answer Date Recorded Housing 0 12/22/2018 Safety and Environment Answer Date Luke rded Safety 0 12/22/2018 Utilities Answer Date Recorded Utilities 0 12/22/2018 Employment Answer Date Recorded Employment 0 12/22/2018 Sex and Gender Information Value Date Recorded Sex Assigned at Male 04/20/2017 6:46 AM PST Legal Sex Male 11:17 AM PDT Gender Identity Male 04/20/2017 6:46 AM PST Sexual Orientation Straight 04/20/2017 6: 46 AM PST Occupation Industry Job Start Date Job End Date unemployed on SSI Not on file Not on file Not on chelsea e Last Filed Vital Signs Vital Sign Reading Time Taken Comments Blood Pressure 100/80 07/19/2017 11:39 AM EDT Pulse 68 07/19/2017 11:39 AM EDT Temperature 37.1 ??C (98.7 ??F) 07/19/2017 11:39 AM E DT Respiratory Rate 16 07/19/2017 11:39 AM EDT Oxygen Saturation 99% 08/31/2015 9:48 AM EDT Inhaled Oxygen Concentration - - Weight 90.7 kg (200 lb) 07/19/2017 11:39 AM EDT Height 164 cm (5' 4.57 ) 01/19/2017 11:08 AM EDT Body Mass Index 33.73 01/19/2017 11:08 AM EDT Plan of Treatment Not on file Insurance [facility] DENTAL [facility] [place] [address] [place] [address] [facility]
--- OUTSIDE RECORDS SUMMARY | 2024-09-01 17:21 | XMS_ITS | Encounter Summary ---
Author Organization [employer] Address [address] [facility] [address] [place] [address] Care Team Providers Care Supervisor Wrapping Room Name Role Phone Winifred Fenton MD Primary Care Provider +1 [phone] Encounter Details Date Type Department Care Team (Late st Contact Info) Description 10/11/2023 Orders Only [facility] [address] [place] [address] Provider, MD Chantal Social History Tobacco Use Types Packs/Day Years Used Date Smoking Tobacco: Every Day Cigarettes Passive Smoke Exposure: Never Smokeless Tobacco: Never Depression Answer Date Recorded Patient Health Questionnaire-9 Score 7 05/29/2022 Housing Stability Answer Date Recorded What is your housing situation today? I have shadi camara 02/19/[address] you li ve. Do you have problems with any of the following? None of the above 02/19/2023 Food Insecurity Answer Date Recorded Within the past 12 months, y ou worried that your food would run out before you got money to buy more: Never True 02/19/2023 Within the past 12 months,th e food you bought just didn't last and you didn't have enough money to get more: Never True Transportation Answer Date Recorded In the past 12 months, has l ack of transportation kept you from medical appts, meetings, work or from getting things needed for daily living? No 02/19/2023 Utilities Answer Date Recorded In the past 12 months, has t he electric, gas, oil or water company threatened to shut off services in your home? No 02/19/2023 Depression Answer Date Recorded Patient Health Questionnaire-2 Score 2 05/29/2022 Sex and Gender Information Value Date Recorded Sex Assigned at Male 02/27/2022 10:33 AM EDT Legal Sex Male 10:33 AM EDT Gender Identity Male 02/27/2022 10:33 AM EDT Sexual Orientation Straight 02/27/2022 10 :33 AM EDT documented as of this encounter Plan of Treatment Upcoming Encounters Date Type Department Care Team (Late st Contact Info) Description 10/13/2024 4:00 PM EDT Office Visit [facility] MED & PEDS [address] [place] [address] Winifred Fenton MD [address] [place] [address] documented as of this encounter Procedures Procedure Name Priority Date/Time Associated Diagnosis Comments MRI BRAIN W WO CONTRAST Routine 10/09/2023 8:38 AM EDT documented in this encounter Results * MRI BRAIN W WO CONTRAST (10/09/2023 8:38 AM EDT) Anatomical Region Laterality Modality Magnetic Resonan ce us Historical Provider MD TERRELL MRI PROCEDURES Final Result documented in this encounter Visit Diagnoses Not on filedocumented in this encounter Additional Health Concerns Assessment Noted Time PHQ-9 Depression Total Score: 7 05/29/19 23 4:02 PM EST documented as of this encounter Care Teams Supervisor Wrapping Room Relationship Specialty Start Date End Date Winifred Fenton MD [address] [place] [address] PCP - General Internal Medicine 09/13/17 Giovanni Randhawa Churn Operator MargarineData Operations Leader 07/23/23 documented as of this encounter
--- OUTSIDE RECORDS SUMMARY | 2024-09-01 17:21 | XMS_ITS | Encounter Summary ---
Author Organization [employer] Address [address] [place] [address] [address], [place] [address] Care Team Providers Care Market Sales Manager Name Role Phone Winifred Fenton MD Primary Care Provider [phone]- [phone] Reason for Referral * Consultation (Routine) - Closed Specialty Diagnoses / Procedures Referred By Contac t Referred To Contact Physical Therapy Diagnoses Neurofibromatosis, type 1 (CMS/HCC) Lumbar radiculopathy Winifred Fenton MD [address] [place] [address] Phone: tel: fax: [facility] [address] [place] [address] Phone: tel: fax: Referral ID Status Reason Start Date Expiration Date V isits Requested Visits Authorized [id number] Closed Specialty Services Required 03/12/2024 03/12/2025 1 1 Encounter Details Date Type Department Care Team (Late st Contact Info) Description 03/12/2024 Orders Only [facility] MED & PEDS [address] [place], [place] [phone] Winifred Fenton MD [address] [place] [address] Neurofibromatosis, type 1 (CMS/HCC) (Primary Dx); Lumbar radiculopathy Social History Tobacco Use Types Packs/Day Years Used Date Smoking Tobacco: Every Day Cigarettes Passive Smoke Exposure: Never Smokeless Tobacco: Never Depression Answer Date Recorded Patient Health Questionnaire-9 Score 17 01/24/2024 Patient Health Questionnaire-9 Score 17 01/24/2024 Last PHQ-9: Questionnaire Data Not on file 0 01/24/2024 Housing Stability Answer Date Recorded What is your housing situation today? I have shadi camara 11/19/[address] you li ve. Do you have problems with any of the following? None of the above 11/19/2023 Food Insecurity Answer Date Recorded Within the past 12 months, y ou worried that your food would run out before you got money to buy more: Never True 11/19/2023 Within the past 12 months,th e food you bought just didn't last and you didn't have enough money to get more: Never True Transportation Answer Date Recorded In the past 12 months, has l ack of transportation kept you from medical appts, meetings, work or from getting things needed for daily living? No 11/19/2023 Utilities Answer Date Recorded In the past 12 months, has t he electric, gas, oil or water company threatened to shut off services in your home? No 11/19/2023 Depression Answer Date Recorded Patient Health Questionnaire-2 Score 4 01/24/2024 Internet Access Answer Date Recorded Internet Access Q1 Yes 12/31/2023 Internet Access Q2 Not on file 12/31/2023 Sex and Gender Information Value Date Recorded Sex Assigned at Male 02/27/2022 10:33 AM EDT Legal Sex Male 10:33 AM EDT Gender Identity Male 02/27/2022 10:33 AM EDT Sexual Orientation Straight 02/27/2022 10 :33 AM EDT documented as of this encounter Plan of Treatment Upcoming Encounters Date Type Department Care Team (Late st Contact Info) Description 10/13/2024 4:00 PM EDT Office Visit [facility] MED & PEDS [address] [place], [place] [phone] Winifred Fenton MD [address] [place] [address] Scheduled Referrals Name Type Priority Associated Diagnoses Orde r Schedule Referral to Physical Therapy Outpatient Referral Routine Neurofibromatosis, type 1 (CMS/HCC) Lumbar radiculopathy Expected: 03/12/2024 (Approximate), Expires: 03/12/2025 documented as of this encounter Visit Diagnoses Diagnosis Neurofibromatosis, type 1 (CMS/HCC)- Primary Neurofibromatosis, Type 1 (von Recklinghausen's disease) Lumbar radiculopathy Thoracic or lumbosacral neuritis or radiculitis, unspecified documented in this encounter Additional Health Concerns Assessment Noted Time PHQ-9 Depression Total Score: 17 024 2:29 PM EDT documented as of this encounter Care Teams Market Sales Manager Relationship Specialty Start Date End Date Winifred Fenton MD [address] [place] [address] PCP - General Internal Medicine 09/13/17 Giovanni Randhawa Undercover AgentBag Machine Operator 07/23/23 documented as of this encounter
--- OUTSIDE RECORDS SUMMARY | 2024-09-01 17:21 | XMS_ITS | Encounter Summary ---
Author Organization [employer] Address [address] [facility] 7[address] [place] [address] Care Team Providers Care Manager Field Service Name Role Phone Winifred Fenton MD Primary Care Provider [phone]- [phone] Encounter Details Date Type Department Care Team (Latest Contact Info) Description 02/19/2023 Orders Only [facility] MED & PEDS [address] [place] [address] Winifred Fenton MD [address] [place] [address] Lumbar radiculopathy (Primary Dx); Type 1 neurofibromatosis (CMS/HCC) Social History Tobacco Use Types Packs/Day Years [...] 4:00 PM EDT Office Visit [facility] MED & PEDS [address] [place] [address] Winifred Fenton MD [address] [place] [address] documented as of this encounter Visit Diagnoses Diagnosis Lumbar radiculopathy- Primary Thoracic or lumbosacral neuritis or radiculitis, unspecified Type 1 neurofibromatosis (CMS/HCC) documented in this encounter Additional Health Concerns Assessment Noted Time PHQ-9 Depression Total Score: 7 05/29/19 23 4:02 PM EST documented as of this encounter Care Teams Manager Field Service Relationship Specialty Start Date End Date Winifred Fenton MD [address] [place] [address] PCP - General Internal Medicine 09/13/17 Giovanni Randhawa Production Lapping Machine OperatorData Assistant 07/23/23 documented as of this encounter
--- OUTSIDE RECORDS SUMMARY | 2024-09-01 17:21 | XMS_ITS | Encounter Summary ---
Author Organization [employer] Address [address] [facility] 7[address] [place] [address] Care Team Providers Care Hospice Clinical Manager Name Role Phone Winifred Fenton MD Primary Care Provider [phone]- [phone] Reason for Visit * Reason Onset Date Comments FYI 08/24/2023 Encounter Details Date Type Department Care Team ([facility] Contact Info) Description 08/24/2023 Telephone [facility] MED & PEDS [address] [place] [address] Winifred Fenton MD [address] [place] [address] FYI Social History Tobacco Use Types Packs/Day Years [...] AM EDT documented as of this encounter Miscellaneous Notes * Telephone Encounter - Ion Cobos RN - 08/24/2023 11:41 AM EDT Please see FYI below. * Telephone Encounter - Rayna Michaels - 08/24/2023 11:37 AM EDT TC from [facility] with [facility] calling to inform Pt will be getting discharge from home physical therapy today 08/24/23. documented in this encounter Plan of Treatment Upcoming Encounters Date Type Department Care Team (Late st Contact Info) Description 10/13/2024 4:00 PM EDT Office Visit [facility] MED & PEDS [address] [place] [address] Winifred Fenton MD [address] [place] [address] documented as of this encounter Visit Diagnoses Not on filedocumented in this encounter Additional Health Concerns Assessment Noted Time PHQ-9 Depression Total Score: 7 05/29/19 23 4:02 PM EST documented as of this encounter Care Teams Hospice Clinical Manager Relationship Specialty Start Date End Date Winifred Fenton MD [address] [place] [address] PCP - General Internal Medicine 09/13/17 Giovanni Randhawa Windows Application DeveloperPublication Designer 07/23/23 documented as of this encounter
--- OUTSIDE RECORDS SUMMARY | 2024-09-01 17:21 | XMS_ITS | Encounter Summary ---
Author Organization [employer] Address [address] [facility] [address] [place] [address] Care Team Providers Care Ham Doctor Name Role Phone Winifred Fenton MD Primary Care Provider [phone]- [phone] Encounter Details Date Type Department Care Team ([facility] st Contact Info) Description 02/22/2024 Orders Only [facility] MED & PEDS [address] [place], [place] [phone] Winifred Fenton MD [address] [place] [address] Depressed mood (Primary Dx) Social History Tobacco Use Types Packs/Day Years [...] Upcoming Encounters Date Type Department Care Team ([facility] st Contact Info) Description 10/13/2024 4:00 PM EDT Office Visit [facility] MED & PEDS [address] [place] [address] Winifred Fenton MD [address] [place] [address] documented as of this encounter Visit Diagnoses Diagnosis Depressed mood- Primary documented in this encounter Additional Health Concerns Assessment Noted Time PHQ-9 Depression Total Score: 17 024 2:29 PM EDT documented as of this encounter Care Teams Ham Doctor Relationship Specialty Start Date End Date Winifred Fenton MD [address] [place] [address] PCP - General Internal Medicine 09/13/17 Giovanni Randhawa Mud LoggerChain Forming Machine Operator 07/23/23 documented as of this encounter
--- OUTSIDE RECORDS SUMMARY | 2024-09-01 17:21 | XMS_ITS | Encounter Summary ---
Author Organization [facility] Address [address] [place] [address] Care Team Providers Care Auto Parts Handler Name Role Phone Huyen Salgado PA-C Primary Care Provider [phone] [phone] Encounter Details Date Type Department Care Team (Late st Contact Info) Description 01/25/2017 / Visits [facility] [address] [place] [phone] Zach Perez [address] [place], [place] [phone] Social History Tobacco Use Types Packs/Day Years Used Date Smoking Tobacco: Every Day Cigarettes 1 8 Smokeless Tobacco: Never Comments:also hooka. also mcelroy s e.cigarretts Alcohol Use Standard Drinks/Week Comments No 0 (1 standard drink = 0.6 oz pur e alcohol) Sex and Gender Information Value Date Recorded Sex Assigned at Male 04/20/2017 6:46 AM PST Legal Sex Male 11:17 AM PDT Gender Identity Male 04/20/2017 6:46 AM PST Sexual Orientation Straight 04/20/2017 6: 46 AM PST Occupation Industry Job Start Date Job End Date unemployed on SSI Not on file Not on file Not on chelsea e documented as of this encounter Plan of Treatment Not on file documented as of this encounter Visit Diagnoses Not on filedocumented in this encounter Care Teams Auto Parts Handler Relationship Specialty Start Date End Date Huyen Salgado PA-C [facility] [place] [address] PCP - General Internal Medicine 04/20/17 08/23/18 documented as of this encounter
--- OUTSIDE RECORDS SUMMARY | 2024-09-01 17:21 | XMS_ITS | Encounter Summary ---
Author Organization [employer] Address [address] [facility] [address] [place] [address] Care Team Providers Care Print Manager Name Role Phone Winifred Fenton MD Primary Care Provider +1- [phone] Encounter Details Date Type Department Care Team (Latest Contact Info) Description 03/21/2023 Orders Only [facility] MED & PEDS [address] [place] [address] Winifred Fenton MD [address] [place] [address] Type 1 neurofibromatosis (CMS/HCC) (Primary Dx); Lumbar radiculopathy Social History [...] 4:00 PM EDT Office Visit [facility] MED & PEDS [address] [place] [address] Winifred Fenton MD [address] [place] [address] documented as of this encounter Visit Diagnoses Diagnosis Type 1 neurofibromatosis (CMS/HCC)- Primary Lumbar radiculopathy Thoracic or lumbosacral neuritis or radiculitis, unspecified documented in this encounter Additional Health Concerns Assessment Noted Time PHQ-9 Depression Total Score: 7 05/29/19 23 4:02 PM EST documented as of this encounter Care Teams Print Manager Relationship Specialty Start Date End Date Winifred Fenton MD [address] [place] [address] PCP - General Internal Medicine 09/13/17 Giovanni Randhawa Miller HeadDivision Human Resources Manager 07/23/23 documented as of this encounter
--- OUTSIDE RECORDS SUMMARY | 2024-09-01 17:21 | XMS_ITS | Clinical Summary ---
Author Organization [email or web address] Address [address] [facility] 7[address] [place] [address] Care Team Providers Care Supervisor [employer] Name Role Phone Winifred Fenton MD Primary Care Provider Allergies Active Allergy Reactions Criticality Noted Date Comments Nutritional Supplements Rash Low 07/29/2020 Medications B Complex Vitamins (RA B-Complex with B-12) tablet Take 1 tablet by mouth. 05/05/19 20 Active dextran 70-hypromellose (artificial tears) 0.1-0.3 % ophthalmic solution Administer 1 drop into affected eye(s) if needed in the morning, at noon, in the evening, and at bedtime. 04/27/20 22 Active diphenhydrAMINE (BENADryl) 25 MG tablet Take 25 mg by mouth 2 times daily. 01/20/20 22 Active DULoxetine (Cymbalta) [address] capsule Take 60 mg by mouth in the morning. 08/03/19 18 Active magnesium 200 MG tablet TAKE 1 TABLET BY MOUTH 3 TIMES WEEKLY NEEDED 04/26/20 22 Active selumetinib (Koselugo) 25 MG chemo capsule Take 25 mg by mouth 2 times daily. 05/25/19 23 Active Salicylic Acid (Mediplast) 40 % miscIndications: Plantar wart of left foot To apply daily to the affected area. Protect the surrounding skin with petroleum Jelly 1 each 1 06/13/19 23 Active gabapentin (Neurontin) 100 MG capsuleIndicatio ns:Lumbar radiculopathy Take 3 capsules (300 mg) by mouth every 8 (eight) hours. 270 capsule 11 04/25/20 23 Active lidocaine (Lidoderm) 5 % patchIndications :Lumbar disc herniation Apply 1 patch topically in the morning. Remove & discard patch within 12 hours or as directed by MD. 30 patch 3 07/17/19 24 Active topiramate (Topamax) 100 MG tablet Take 1 tablet by mouth if needed at bedtime (pain). 05/09/19 24 Active oxyCODONE (Roxicodone) 5 MG immediate release tablet Take 1-2 tablets by mouth every 4 (four) hours if needed. 07/30/19 24 Active Blood Pressure kitIndications:P rimary hypertension To check the BP daily 1 kit 08/20/19 24 Active cetirizine (ZyrTEC) 10 MG tablet Take 1 tablet by mouth Once per day. 09/19/19 24 Active Nicotine Step 1 21 MG/24HR patch APPLY 1 PATCH TOPICALLY EVERY DAY REMOVE OLD PATCH BEFORE APPLYING NEW ONE. 09/19/19 24 Active mirtazapine (Remeron) 30 MG tabletIndication s:Depressed mood Take 1 tablet (30 mg) by mouth at bedtime. 30 tablet 11 02/27/20 24 2024 Active meloxicam (Mobic) 15 MG tabletIndication s:Lumbar disc herniation Take 1 tablet (15 mg) by mouth Once per day. 30 tablet 11 02/27/20 24 2024 Active lisinopril 20 MG tabletIndication s:Primary hypertension Take 1 tablet (20 mg) by mouth Once per day. 90 tablet 3 02/27/20 24 Active albuterol (Ventolin HFA) 108 (90 Base) MCG/ACT inhalerIndicatio ns:Moderate persistent asthma, unspecified whether complicated INHALE 2 PUFFS INTO THE LUNGS EVERY 4 TO 6 HOURS NEEDED. 18 g 3 07/09/19 25 Active Diclofenac Sodium 1 % gelIndications:L umbar disc herniation To apply to the affected area 3 times a day 100 g 07/15/19 25 Active Breo Ellipta 100-25 MCG/ACT aerosol powderIndication s:Moderate persistent asthma, unspecified whether complicated Inhale 1 puff Once per day. 60 each 11 07/15/19 25 Active triamcinolone (Kenalog) 0.1 % ointmentIndicati ons:Dermatitis Apply topically 2 times daily. 453.6 g 2 07/15/19 25 Active baclofen (Lioresal) 20 MG tabletIndication s:Lumbar radiculopathy TAKE 1 TABLET BY MOUTH THREE TIMES A DAY 90 tablet 2 08/05/19 25 Active nicotine (Nicoderm, Step 3) 7 MG/24HR patch PLACE 1 PATCH ON THE SKIN 1 TIME EACH DAY AT THE SAME TIME. 28 patch 08/16/19 25 Active baclofen (Lioresal) 20 MG tabletIndication s:Lumbar radiculopathy TAKE 1 TABLET BY MOUTH THREE TIMES A DAY 90 tablet 2 02/18/20 24 2024 Discontinued nicotine (Nicoderm CQ) 7 MG/24HR patchIndications :Smoking Place 1 patch on the skin 1 (one) time each day at the same time. 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 Asthma 10/13/2017 Overview (05/29/2022): 6/6/18 - Maria Esther at [facility] ED c/o cp, sob, and nonproductive cough . O2 sat 93%. Treated with Albuterol x 3 and Prednisone in ED. CRX neg. Discharged with Albuterol and prednisone 20 mg BID x 5 days. 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 Yasmany [place] [facility] [place]/30/17 NF clinic - potential new treatment for plexiform neurofibromas was discussed with pt (selumetinib). Dr. Richards will try to get off label approval for this therapy. Pt has F/U appt in 6 months and had an appt for ECHO on 05/16/17 to determine whether he can tolerate this treatment . 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 Waiting for non-FDA approved drug (Selumetinib) for get approved vs for the NF Binimetinib trial to open at [facility] (within several months). Recommend increasing Duloxetine for his ongoing depression and back pain. Will order MRI to look for tumors of R middle finger. F/U 3 mos. 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 S/p multiple debulking surgeries left facial NF most recent 05/18/16 at [facility] Encounters Date Type Department Care Team Description 08/15/2024 Refill [facility] [address] [place] [address] Winifred Fenton MD Nicotine dependence, unspecified, uncomplicated 08/06/2024 Patient Outreach [facility] [address] [place] [address] Winifred Fenton MD Care Coordination ([facility] outreach for SDOH [id number] completed /) 08/04/2024 Refill [facility] [address] [place] [address] Winifred Fenton MD Lumbar radiculopathy 07/14/2024 1:45 PM EDT Office Visit [facility] [address] [place] [address] Winifred Fenton MD Dermatitis (Primary Dx); Lumbar disc herniation; Mild persistent asthma without complication; Moderate persistent asthma, unspecified whether complicated; Smoking 07/14/2024 Travel 07/11/2024 Population Health Risk Score [facility] () Department [address] [place] [id number] Provider, Population Health Generic 07/08/2024 Refill [facility] [address] [place] [address] Winifred Fenton MD Moderate persistent asthma, unspecified whether complicated from Last 3 Months Immunizations Name Administration Dates Next Due Hep A, Adult 01/24/2024 Hep B, adult 01/24/2024 Influenza injectable quadriv alent IIV4 with preservative 01/22/2019,03/08/2018 Influenza injectable quadriv alent preservative free 05/29/2022,01/19/2017,03/13/2015 MMR 10/02/2014 Moderna Covid-19 Vaccine 12+ 09/17/2020,08/21/19 21 PPD Test 10/16/2014 Pneumococcal Conjugate PCV 20 01/24/2024 Tdap 10/17/2015 Social History Tobacco Use Types Packs/Day Years Used Date Smoking Tobacco: Every Day Cigarettes Passive Smoke Exposure: Never Smokeless Tobacco: Never Tobacco Cessation:Ready to Q uit: Not Asked; Counseling Given: Not Answered Depression Answer Date Recorded Patient Health Questionnaire-9 [...] Orientation Straight 02/27/2022 10 :33 AM EDT Last Filed Vital Signs Vital Sign Reading Time Taken Comments Blood Pressure 126/80 07/14/2024 1:50 PM EDT Pulse 86 07/14/2024 1:50 PM EDT Temperature 36.6 ??C (97.8 ??F) 07/14/2024 1:50 PM ED T Respiratory Rate 20 07/14/2024 1:50 PM EDT Oxygen Saturation 98% 07/14/2024 1:50 PM EDT Inhaled Oxygen Concentration - - Weight 86.7 kg (191 lb 3.2 oz) 07/14/2024 1:50 P M EDT Height 167.6 cm (5' 6 ) 07/14/2024 1:50 PM EDT Body Mass Index 30.86 07/14/2024 1:50 PM EDT Plan of Treatment Upcoming Encounters Date Type Department Care Team (Late st Contact Info) Description 10/13/2024 4:00 PM EDT Office Visit [facility] [address] [place] [address] Winifred Fenton MD [address] [place], [place] [address] [address] Health Maintenance Due Date Last Done Comments HIV Screening 1992 Alcohol/Substance Use Screening 2004 Family Planning (PISQ) 02/04/2007 COVID-19 Vaccine ( - 2023- season) 2023 09/17/2020, 08/20/2020 Influenza Vaccine (#1) 2023 , 01/22/2019, 03/08/2018, Additional history exists Hepatitis B Vaccines (2 of 3 - 19+ 3-dose series) 02/21/2024 01/24/2024 Depression Monitoring 07/23/2024 01/24/2024, 024 SDOH Screening 11/18/2024 11/19/2023 Depression Screening 01/23/2025 01/24/2024, 01/24/20 24 Tobacco Screening 07/14/2025 07/14/2024 DTaP/Tdap/Td Vaccines (2 - Td or Tdap) 10/16/2025 10/17/2015 Lipid Panel 11/29/2026 11/29/2021 Zoster Vaccines (1 of 2) 02/04/2042 RSV Patients and Patients Aged 60 years or older (1 - 1-dose 75+ series) 02/04/2067 Hepatitis C Screening Completed 11/29/2021 Hepatitis A Vaccines Aged Out 01/24/2024 No long er eligible based on patient's age to complete this topic Pneumococcal Vaccine: Pediatrics (0 to 5 Years) and At-Risk Patients (6 to 49) Years) Completed 01/24/2024 HIB Vaccines Aged Out No longer eligi ble based on patient's age to complete this topic HPV Vaccines Aged Out No longer eligi ble based on patient's age to complete this topic IPV Vaccines Aged Out No longer eligi ble based on patient's age to complete this topic Meningococcal Vaccine Aged Out No sulema axel eligible based on patient's age to complete this topic RSV under 20 months Aged Out No longe r eligible based on patient's age to complete this topic Rotavirus Vaccines Aged Out No longer eligible based on patient's age to complete this topic Procedures Procedure Name Priority Date/Time Associated Diagnosis Comments ZZZ HISTORICAL HEPATITIS C AB W/REFL TO HCV RNA, QN, PCR Routine 11/29/2021 9:28 AM EDT LIPID PANEL, STANDARD Routine 11/29/2021 9:28 AM EDT from Last 3 Months or Most Recently Relevant to Health Maintenance Results * HEPATITIS C AB W/REFL TO HCV RNA, QN, PCR (11/29/2021 9:28 AM EDT) Pathologist [facility] [place] HEPATITIS C ANTIBODY NON-REACT KIM NON-REACT KIM [facility] INDEX 0.10 <1.00 [facility] Comment: ?? HCV antibody was non-reactive. There is no laboratory ?? evidence of HCV infection. ?? In most cases, no further action is required. However, if recent HCV exposure is suspected, a test for HCV RNA (test code 84544) is suggested. ?? For additional information please refer to http://education.[employer]/faq/RGZ58u2 (This link is being provided for informational/ educational purposes only.) ?? 11/29/2021 9:28 AM EDT us Wniifred Fenton MD HISTORICAL/NON ORDERABLE JONATHAN ROGERS Final Result [facility] [address] * (ABNORMAL) LIPID PANEL, STANDARD (11/29/2021 9:28 AM EDT) Pathologist [facility] [place] Chol/HDLC Ratio 3.6 <5.0 (calc) [facility] Cholesterol, Total 129 <200 mg/dL [facility] HDL Cholesterol 36(L) > OR = 40 mg/dL [facility] LDL Cholesterol 72 mg/dL (calc) [facility] Comment: Reference range: <100 ?? Desirable range <100 mg/dL for primary prevention; ?? <70 mg/dL for patients with CHD or diabetic patients ?? with > or = 2 CHD risk factors. ?? LDL-C is now calculated using the Pawel-Menard ?? calculation, which is a validated novel method providing ?? better accuracy than the Friedewald equation in the ?? estimation of LDL-C. ?? Pawel SS et al. JHON. 2013;310(19): 4375-5872 ?? (http://[employer]/faq/FEO729) Non-HDL Cholesterol 93 <130 mg/dL (calc) [facility] Comment: For patients with diabetes plus 1 major ASCVD risk ?? factor, treating to a non-HDL-C goal of <100 mg/dL ?? (LDL-C of <70 mg/dL) is considered a therapeutic ?? option. Triglycerides 127 <150 mg/dL [facility] 11/29/2021 9:28 AM EDT us Winifred Fenton MD LAB BLOOD ORDERABLES Final Result [facility] [address] from Last 3 Months or Most Recently Relevant to Health Maintenance Insurance [employer] C3 Care Teams Supervisor [employer] Relationship Specialty Start Date End Date Winifred Fenton MD [address] [place] [id number] PCP - General Internal Medicine 09/13/17 Giovanni Randhawa Healthcare Project ManagerSports Writer 07/23/23
== END 2024-09-01 16:26 | disposition home or self-care (01) ==
LOC: HO.HPS 15:54
PROVIDERS: PCP Internal Medicine; Visit Provider Internal Medicine
DX: J45.909 Unspecified asthma, uncomplicated (principal)
CPT/HCPCS: 99213

== ENCOUNTER → 2024-09-01 15:53 | Outpatient (BNVA) | payer MEDICAID, SELFPAY | PROVIDERS: PCP Internal Medicine; Visit Provider Internal Medicine | DX: J45.909 Unspecified asthma, uncomplicated (principal) | CPT/HCPCS: 99212 ==

== ENCOUNTER 2025-01-24 23:31 | Emergency (ER) | payer MEDICAID, SELFPAY ==
--- NOTE | ~2025-01-24 | XR_ITS ---
CLINICAL HISTORY: ankle rolled Exam: AP, lateral, and mortise views of the left ankle. Comparison: None provided. Findings: Bony alignment is anatomic. No acute fracture. Ankle mortise is intact. [id number] lateral soft tissue swelling. Impression: Lateral soft tissue swelling without fracture. This document has been electronically signed by: Shaun Cazares MD on 01/25/2025 00:25:27
[2025-01-24 23:32] VITALS: BP 126/73; PULSE 116; RESP 20; TEMP 36.7; O2SAT 96; BMI 30.7
--- NOTE | 2025-01-25 00:41 | ED_ITS ---
HPI - Extremity Injury (Lower) General Chief Complaint: Extremity Injury, Lower Stated Complaint: left ankle injury Time Seen by Provider: 01/25/25 00:15 Source: patient Mode of arrival: ambulatory Limitations: no limitations History of Present Illness ED Provider: Dr. Lita Johnson HPI Narrative: patient comes to the emergency room complaining of left ankle pain. Patient states that he was sitting and when he stood up, his ankle buckled. Patient states that he has trouble putting weight on his ankle. Patient denies any other injuries. Related Data Home Medications ?Medication ?Instructions ?Recorded ?Confirmed lisinopril 20 mg tablet 20 mg PO DAILY 05/03/2012/31 Previous Rx's ?Medication ?Instructions ?Recorded albuterol sulfate 90 mcg/actuation 2 puff inhalation Q 6H PRN 04/06/24 aerosol inhaler shortness of breath or wheez ing #8.5 grams cefuroxime axetil 500 mg tablet 500 mg PO BID 7 days # 14 tabs 04/06/24 prednisone 20 mg tablet 40 mg (2 x 20 mg) PO DAILY # 10 tabs 04/06/24 albuterol sulfate 90 mcg/actuation 2 puff inhalation Q 4-6H PRN 09/01/24 aerosol inhaler (Ventolin HFA) shortness of breath or wheezing #8.5 grams fluticasone furoate 200 1 inh inhalation DAILY BR. THMA 09/01/24 mcg-vilanterol 25 mcg/dose 30 days #60 ea inhalation powder (Breo Ellipta) ketorolac 10 mg tablet 10 mg PO TID PRN pain #12 ta bs 01/25/25 Allergies Allergy/AdvReac Type Severity Reaction Status Date / Time No Known Allergies Allergy Verified 01/24/25 23:36 Review of Systems Review of Systems: Constitutional : No Weight loss, No Fever, No Chills, No Night Sweats, No Fatigue, No Malaise ENT/Mouth : No Hearing loss, No Ear Pain, No Nasal Congestion, No Sinus Pain, No Hoarseness, No sore throat, No Rhinorrhea, No Swallowing Difficulty Eyes: No Eye Pain, No Swelling, No Redness, No Foreign Body, No Discharge, No Vision Changes Cardiovascular : No Chest Pain, No SOB, No Dyspnea on Exertion, No Orthopnea, No Edema, No Palpitations Respiratory : No Cough, No Sputum, No Wheezing, No Smoke Exposure, No Dyspnea Gastrointestinal : No Nausea, No Vomiting, No Diarrhea, No Constipation, No abdominal Pain, No Hematochezia, No Melena Genitourinary : no irregular bleeding, No Dysuria, No Urinary Frequency, No Hematuria, No Urinary Incontinence, No Urgency, No Flank Pain, No Urinary Flow Changes, No Hesitancy Musculoskeletal : Complaining of left ankle pain No Myalgias, No Joint Swelling Skin : No Skin Lesions, No rash Neuro : No Weakness, No Numbness, No Paresthesias, No Loss of Consciousness, No Dizziness, No Headache Psych : No Anxiety/Panic, No Depression, No SI/HI/AH/VH, No Social Issues, Heme/Lymph: No Bruising, No Bleeding,No Lymphadenopathy Endocrine : No Polyuria, No Polydipsia, No Temperature Intolerance [facility] Past Medical History Medical History Asthma Dermatitis Primary hypertension Lumbar radiculopathy Chemotherapy follow-up examination Neurofibromatosis Surgical History History of facial surgery Family History Family History Father No problems noted. Mother No problems noted. Social History Social History Alcohol intake: never Physical Exam Exam: Exam: Appearance: Alert. Oriented X3. No acute distress. Eyes: Pupils equal, round and reactive to light. ENT: Pharynx normal. Neck: Normal inspection. Neck supple. No lymph nodes noted. No crepitus CVS: Normal heart rate and rhythm. Pulses normal. Normal S1 and S2 Respiratory: No respiratory distress. Breath sounds normal. No Wheezing. No rales Abdomen: Soft and nontender. No rigidity. No distention. Skin: Skin warm and dry. Normal skin color. Normal skin turgor. Extremities: No lower extremity edema. No Lacerations. No Rash there is no significant swelling in the left ankle, patient is able to flex and extend the ankle, good palpable pedal pulses no erythema, no joint effusion, patient can minimally put any weight on the ankle, walks limping Neuro: Oriented X 3. No motor deficit. No sensory deficit. Moving all extremities. No slurred speech. CN 2 through 12 grossly intact Psych: calm, cooperative, normal affect Vital Signs: Vital Signs: Last Vital Signs Temp 98.1 F 01/24/25 23:32 Pulse 116 H 01/24/25 23:32 Resp 20 01/24/25 23:32 BP 126/73 01/24/25 23:32 Pulse Ox 96 01/24/25 23:32 O2 Del Method Room Air 01/24/25 23:32 BMI result Body Mass Index 30.7 Medical Decision Making Medical Decision Making [facility] Narrative: I discussed the x-ray with the patient, no acute fracture or dislocation. Patient likely has a sprain patient asked for IM pain medication, he as given Ketorolac also, patient was provided with crutches. Differential Diagnosis Differential Diagnoses: The differential diagnosis associated with the presentation includes ( Ankle sprain, strain, malleolar fracture, metatarsal fracture, dislocation) Independent Interpretation I performed an independent interpretation of an: Plain X-Ray Radiology Impression Discussion of test interpretation with radiology: I have reviewed the r adiologist's reading. Radiologist Impression: Bony alignment is anatomic. No acute fracture. Ankle mortise is intact. [id number] lateral soft tissue swelling. Impression: Lateral soft tissue swelling without fracture. Discharge Plan Discharge Clinical Impression: Left ankle sprain Patient Disposition: Home, Self-Care Instructions: Ankle Sprain (ED), Crutch Instructions (ED), Ice Pack Application (ED), Cold Compress or Soak (ED) Additional Instructions: Please follow-up with your primary care physician tomorrow. If you have any worsening or new symptoms, please return to the emergency room or call 911 Prescriptions: New ketorolac 10 mg tablet 10 mg PO TID PRN (Reason: pain) Qty: 12 0RF Rx Instructions: do not use this medication with ibuprofen or any other NSAIDs No Action cefuroxime axetil 500 mg tablet 500 mg PO BID 7 Days Qty: 14 0RF albuterol sulfate 90 mcg/actuation HFA aerosol inhaler 2 puff inhalation Q6H PRN (Reason: shortness of breath or wheezing) Qty: 8.5 0RF prednisone 20 mg tablet 40 mg PO DAILY Qty: 10 0RF lisinopril 20 mg tablet 20 mg PO DAILY albuterol sulfate [Ventolin HFA] 90 mcg/actuation HFA aerosol inhaler 2 puff inhalation Q4-6H PRN (Reason: shortness of breath or wheezing) Qty: 8.5 3RF fluticasone furoate-vilanterol [Breo Ellipta] 200-25 mcg/dose blister with device 1 inh inhalation DAILY 30 Days Qty: 60 5RF Stand Alone Forms: Substance Abuse Outpt Detox, Work/School Release Print Language: Divehi
--- OUTSIDE RECORDS SUMMARY | 2025-01-25 00:58 | XMS_ITS | Clinical Summary ---
Author Organization [facility] Address [address] [place] [address] Care Team Providers Care Ammunition And Explosives Handler Name Role Phone Unavailable Primary Care Provider [...] chest pain 11/03/2017 Overview (11/03/2017): 08/29/17 - [facility]: c/o random chest discomfort across upper [...] Does not needs further cardiac work-up. Asthma ([facility]) 10/13/2017 Overview (10/13/2017): 10/03/17 - Maria Esther at [facility] ED c/o cp, sob, and nonproductive cough . O2 sat 93%. Treated with Albuterol x 3 and Prednisone in ED. CRX neg. Discharged with Albuterol and prednisone 20 mg BID x 5 days. Beta thalassemia minor; electrophoresis 07/23/17 07/23/2017 Tobacco abuse disorder 01/19/2017 Scoliosis 01/19/2017 Dermatitis 06/28/2016 Hearing deficit 06/28/2016 Type 1 neurofibromatosis (HC C) Being followed at [facility] at the NF clinic. 12/02/2014 Overview (09/11/2017): Pt is being followed by Dr. Yasmany Richards [place] [facility] [place] 01/30/17 NF clinic - potential new treatment for plexiform neurofibromas was discussed with pt (selumetinib). Dr. Richards will try to get off label approval for this therapy. Pt has F/U appt in 6 months and had an appt for ECHO on 05/16/17 to determine whether he can tolerate this treatment . 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 Waiting for non-FDA approved drug (Selumetinib) for get approved vs for the NF Binimetinib trial to open at [facility] (within several months). Recommend increasing Duloxetine for his ongoing depression and back pain. Will order MRI to look for tumors of R middle finger. F/U 3 mos. 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 S/p multiple debulking surgeries left facial NF most recent 05/18/16 at [facility] Resolved Problems Problem Noted Date Diagnosed Date [...] 68 07/19/2017 11:39 AM EDT Temperature 37.1 C (98.7 F) 07/19/2017 11:39 AM EDT Respiratory Rate 16 07/19/2017 11:39 AM EDT Oxygen Saturation 99% 08/31/2015 9:48 AM EDT Inhaled Oxygen Concentration - - Weight 90.7 kg (200 lb) 07/19/2017 11:39 AM EDT Height 164 cm (5' 4.57 ) 01/19/2017 11:08 AM EDT Body Mass Index 33.73 01/19/2017 11:08 AM EDT Plan of Treatment Not on file Insurance [facility] [place] [address] [facility] [place] [address] [place] [address] [facility]
--- OUTSIDE RECORDS SUMMARY | 2025-01-25 00:58 | XMS_ITS | Encounter Summary ---
Author Organization [employer] Address [address] [facility] [address] [place] [address] Care Team Providers Care Owner/Operator Name Role Phone Winifred Fenton MD Primary Care Provider [phone] Encounter Details Date Type Department Care Team ([facility] st Contact Info) Description 10/15/2024 Orders Only [facility] [address] [place], [place] [phone] Winifred Fenton MD [address] [place] [address] Social History Tobacco Use Types Packs/Day Years [...] Upcoming Encounters Date Type Department Care Team ([facility] st Contact Info) Description 03/03/2025 2:45 PM EST Office Visit [facility] [address] [place] [address] Winifred Fenton MD [address] [place] [address] documented as of this encounter Visit Diagnoses Not on filedocumented in this encounter Additional Health Concerns Assessment Noted Time PHQ-9 Depression Total Score: 17 024 2:29 PM EDT documented as of this encounter Care Teams Owner/Operator Relationship Specialty Start Date End Date Winifred Fenton MD [address] [place] [address] PCP - General Internal Medicine 09/13/17 Giovanni Randhawa Leather DrierTruck Sales Representative 07/23/23 documented as of this encounter
--- OUTSIDE RECORDS SUMMARY | 2025-01-25 00:58 | XMS_ITS | Encounter Summary ---
Author Organization [facility] Address [address] [place] [address] [address] [place] [address] Phone Care Team Providers Care Hot Press Operator Name Role Phone Winifred Fenton MD Primary Care Pr ovider Yasmany Richards MD Unavailable Anthony Oglesby MD Unavailable Reason for Visit * Reason Comments Medication Refill Encounter Details Date Type Department Care Team (Late st Contact Info) Description 04/12/2021 Refill [facility] Neurosurgery [address] [facility], 7th Floor, [address] [place] [address] Viviane Novoa, CERTIFIED REAL ESTATE APPRAISER [address] [address] [email or web address] Medication Refill Social History Tobacco Use Types Packs/Day Years Used Date Smoking Tobacco: Every Day Cigarettes 0.5 17.7 Started: 05/28/2007 Pipe Smokeless Tobacco: Never Comments:used to stop 4-5 PP D- now Cut back to 2 PPD since last 3 month plus Hookah 4-5X/day- now smokes 2 cigarettes from last three days Alcohol Use Standard Drinks/Week Comments No 0 (1 standard drink = 0.6 oz pur e alcohol) Sex and Gender Information Value Date Recorded Sex Assigned at Male 05/07/2017 9:35 AM EST Legal Sex Male 8:55 AM EDT Gender Identity Male Sexual Orientation Straight Occupation Industry Job Start Date Job End Date unemployed Not on file Not on file Not on file documented as of this encounter Functional Status * Patient is deaf or has serious difficulty with hearing Answer Date of Assessment Author No 11/23/2015 9:40 AM Lamine Kowalski MD * Patient is blind or has serious difficulty with seeing, even when wearing glasses Answer Date of Assessment Author No 11/23/2015 9:40 AM Lamine Kowalski MD * Patient has serious difficulty walking or climbing stairs (5yr old or older) Answer Date of Assessment Author No 11/23/2015 9:40 AM Lamine Kowalski MD * Patient has serious difficulty dressing or bathing (5yr old or older) Answer Date of Assessment Author No 11/23/2015 9:40 AM Lamine Kowalski MD * Patient has serious difficulty doing errands alone such as visiting a doctor???s office or shopping, due to physical, mental, or emotional condition (15 years old or older) Answer Date of Assessment Author No 11/23/2015 9:40 AM Lamine Kowalski MD documented as of this encounter Mental Status * Patient has serious difficulty concentrating, remembering, or making decisions due to physical, mental, or emotional condition Answer Entry Date Author No 11/23/2015 9:40 AM Lamine Kowalski MD documented in this encounter Plan of Treatment Upcoming Encounters Date Type Department Care Team (Late st Contact Info) Description 02/12/2025 9:00 AM EDT Office Visit [facility] Plastic Surgery 45 [facility] 2nd [place] [address] Herminia Mclain MD 75 [place] [address] [email or web address] 03/17/2025 2:30 PM EST Office Visit [facility] for Neuro Oncology 32 [facility], 9th Floor, [address] [place] [address] Anthony Oglesby MD 55 [facility] 9 [place] [address] [email or web address] 04/01/2025 1:20 PM EST Office Visit [facility] [address] [address] Boris Hansen MD 243 [place] [address] [email or web address] 04/01/2025 1:40 PM EST Appointment [facility] [address] [address] documented as of this encounter Visit Diagnoses Not on filedocumented in this encounter Additional Health Concerns Infection Onset Date Last Indicated Resolved Time MRSA 04/09/2021 04/09/2021 04/09/2023 1:21 AM EST CoV-Risk 09/22/2021 09/22/2021 10/03/2021 1:24 AM EDT documented as of this encounter Care Teams Hot Press Operator Relationship Specialty Start Date End Date Winifred Fenton MD [address] [address] PCP - General Internal Medicine 10/09/17 Yasmany Richards MD 55 [place] [address] [email or web address] Primary Oncologist Neurology 07/10/1811/19 Anthony Oglesby MD 55 [facility] YA 9 [place] [address] [email or web address] Neurology 11/20/24 documented as of this encounter Additional Source Comments The information contained in this document represents components of the legal health record. It is not the complete legal health record.[facility]
--- OUTSIDE RECORDS SUMMARY | 2025-01-25 00:58 | XMS_ITS | Encounter Summary ---
Author Organization [facility] Address [address] [place] [address] [place] [address] Phone Care Team Providers Care Bag Mender Name Role Phone Winifred Fenton MD Primary Care Pr ovider Yasmany Richards MD Unavailable [phone] Anthony Oglesby MD Unavailable Encounter Details Date Type Department Care Team (Late st Contact Info) Description 11/30/2020 Procedure Pass [facility] Cardiac US [address] [place] [address] Social History Tobacco Use Types Packs/Day Years [...] of Assessment Author No 11/23/2015 9:40 AM EDT Lamine Valenzuela MD * Patient is blind or has serious difficulty with seeing, even when wearing glasses Answer Date of Assessment Author No 11/23/2015 9:40 AM EDT Lamine Valenzuela MD * Patient has serious difficulty walking or climbing stairs (5yr old or older) Answer Date of Assessment Author No 11/23/2015 9:40 AM EDT Lamine Valenzuela MD * Patient has serious difficulty dressing or bathing (5yr old or older) Answer Date of Assessment Author No 11/23/2015 9:40 AM EDT Lamine Valenzuela MD * Patient has serious difficulty doing [...] Entry Date Author No 11/23/2015 9:40 AM MILET Lamine Valenzuela MD documented in this encounter Plan of Treatment Upcoming Encounters Date Type Department Care Team (Late st Contact Info) Description 02/12/2025 9:00 AM EDT Office Visit [facility] Plastic Surgery 45 [facility] 2nd [place] [address] Herminia Mclain MD 75 [place] [address] [email or web address] 03/17/2025 2:30 PM EST Office Visit [facility] Center for Neuro Oncology 32 [facility], 9th Floor, [address] [place] [address] Anthony Oglesby MD [address] [address] [email or web address] 04/01/2025 1:20 PM EST Office Visit [facility] 243 [facility] 1st [place] [address] Boris Hansen MD 243 [place] [address] [email or web address] 04/01/2025 1:40 PM EST Appointment [facility] 243 [facility] 1st [place] [address] documented as of this encounter Visit Diagnoses Not on filedocumented in this encounter Additional Health Concerns Infection Onset Date Last Indicated Resolved Time MRSA 04/09/2021 04/09/2021 04/09/2023 1:21 AM EST CoV-Risk 09/22/2021 09/22/2021 10/03/2021 1:24 AM EDT documented as of this encounter Care Teams Bag Mender Relationship Specialty Start Date End Date Winifred Fenton MD [address] [address] PCP - General Internal Medicine 10/09/17 Yasmany Richards MD [address] [place] [address] [email or web address] Primary Oncologist Neurology 07/10/1811/19 Anthony Oglesby MD 55 [facility] YA 9 [place] [address] [email or web address] Neurology 11/20/24 documented as of this encounter Additional Source Comments The information contained in this document represents components of the legal health record. It is not the complete legal health record.[facility]
--- OUTSIDE RECORDS SUMMARY | 2025-01-25 00:58 | XMS_ITS | Encounter Summary ---
Author Organization [facility] Address [address] [place] [address] [place] [address] Phone Care Team Providers Care Newspaper Illustrator Name Role Phone Winifred Fenton MD Primary Care Pr ovider Yasmany Richards MD Unavailable [phone] Anthony Oglesby MD Unavailable Encounter Details Date Type Department Care Team (Late st Contact Info) Description 08/16/2021 Procedure Pass [facility] Cardiac US [address] [place] [address] Social History Tobacco Use Types Packs/Day Years [...] Description 02/12/2025 9:00 AM EDT Office Visit [facility] Plastic Surgery 45 [facility] 2nd [place] [address] Herminia Mclain MD 75 [place] [address] [email or web address] 03/17/2025 2:30 PM EST Office [facility] Center for Neuro Oncology 32 [facility], 9th Floor, [address] [place] [address] Anthony Oglesby MD [address] [address] [email or web address] [place] 04/01/2025 1:20 PM EST Office Visit [facility] 243 [facility] 1st [place] [address] Boris Hansen MD 243 [place] [address] [place]@[email or web address] 04/01/2025 1:40 PM EST Appointment [facility] 243 [facility] 1st [place] [address] documented as of this encounter Visit Diagnoses Not on filedocumented in this encounter Additional Health Concerns Infection Onset Date Last Indicated Resolved Time MRSA 04/09/2021 04/09/2021 04/09/2023 1:21 AM EST CoV-Risk 09/22/2021 09/22/2021 10/03/2021 1:24 AM EDT documented as of this encounter Care Teams Newspaper Illustrator Relationship Specialty Start Date End Date Winifred Fenton MD [address] [address] PCP - General Internal Medicine 10/09/17 Yasmany Richards MD [address] [place] [address] [email or web address] Primary Oncologist Neurology 07/10/1811/19 Anthony Oglesby MD 55 [facility] YA 9 [place] [address] [email or web address] Neurology 11/20/24 documented as of this encounter Additional Source Comments The information contained in this document represents components of the legal health record. It is not the complete legal health record.[facility]
--- OUTSIDE RECORDS SUMMARY | 2025-01-25 00:58 | XMS_ITS | Encounter Summary ---
Author Organization [facility] Address [address] [place] [address] [place] [address] Phone Care Team Providers Care Environmental Marketing Representative Name Role Phone Winifred Fenton MD Primary Care Pr ovider Yasmany Richards MD Unavailable [phone] Anthony Oglesby MD Unavailable Encounter Details Date Type Department Care Team (Late st Contact Info) Description 07/07/2024 Procedure Pass [facility] 2 55 [facility], 2nd [place] [address] Social History Tobacco Use Types Packs/Day Years Used Date Smoking Tobacco: Every Day Cigarettes 0.5 17.7 Started: 05/28/2007 Pipe Smokeless Tobacco: Never Comments:used to smoke 4-5 P PD- now Cut back to 2 PPD since last 3 month plus Hookah 4-5X/day- now smokes 2 cigarettes from last three days Alcohol Use Standard Drinks/Week Comments No 0 (1 standard drink = 0.6 oz pur e alcohol) Education Answer Date Recorded Are you interested in more education? Not on chelsea e 08/25/2022 Are you concerned about learning? Not on file 08/25/2022 No 08/25/2022 No 08/25/2022 Food Answer Date Recorded Within the past 6 months we worried whether our food would run out before we got money to buy more. Never True 07/26/2023 Within the past 6 months the food we bought just didn't last and we didn't have enough money to get more. Never True Residential Stability Answer Date Recor ded What is your housing situation today? I have shadi camara 07/26/2023 How many times have you move d in the past 12 months? Zero (I did not move) 07/26/2023 Paying for Meds Answer Date Recorded Do you have trouble paying for medicines? No 07/26/2023 Paying Utility Bills Answer Date Record ed Do you have trouble paying your heating or elect ricity bill? No 07/26/2023 Transportation Answer Date Recorded Has the lack of transportati on kept you from medical appointments or from getting medications? No 07/26/2023 Digital Access Answer Date Recorded No 07/26/2023 Yes 07/26/2023 Do you have reliable internet access at home? Ye s 07/26/2023 Do you have a device (e.g., phone, tablet, computer) with a working camera? Yes 07/26/2023 Intimate Partner Violence Answer Date R ecorded Are you denied basic needs s uch as food, clothing, or medical care? Deferred 07/26/2023 In the past 12 months have y ou been in a relationship with a person who hurts, threatens, or tries to control you? Deferred 07/26/2023 Are you denied basic needs s uch as food, clothing, or medical care? Deferred 07/26/2023 In the past 12 months have y ou been in a relationship with a person who hurts, threatens, or tries to control you? Deferred 07/26/2023 Sex and Gender Information Value Date Recorded [...] 11/23/2015 9:40 AM EDT Lamine Valenzuela MD documented as of this encounter Mental Status * Patient has serious difficulty concentrating, remembering, or making decisions due to physical, mental, or emotional condition Answer Entry Date Author No 11/23/2015 9:40 AM EDT Lamine Valenzuela MD documented in this encounter Plan of Treatment Upcoming Encounters Date Type Department Care Team (Late st Contact Info) Description 02/12/2025 9:00 AM EDT Office Visit [facility] Plastic Surgery [address] [facility] 2nd [place] [address] Herminia Mclain MD 75 [place] [address] [email or web address] 03/17/2025 2:30 PM EST Office Visit [facility] Center for Neuro Oncology 32 [facility], 9th Floor, [address] [place] [address] Anthony Oglesby MD 55 [facility] 9 [place] [address] [email or web address] 04/01/2025 1:20 PM EST Office Visit [facility] 243 [facility] 1st [place] [address] Boris Hansen MD 243 [place] [address] [place]@[facility] 04/01/2025 1:40 PM EST Appointment [facility] [address] 1st [place] [address] documented as of this encounter Visit Diagnoses Not on filedocumented in this encounter Care Teams Environmental Marketing Representative Relationship Specialty Start Date End Date Winifred Fenton MD 230 [facility] 1 [place] [address] PCP - General Internal Medicine 10/09/17 Yasmany Richards MD 55 [place] [address] [email or web address] Primary Oncologist Neurology 07/10/1811/19 Anthony Oglesby MD 55 [facility] YA 9 [place] [address] [email or web address] Neurology 11/20/24 documented as of this encounter Additional Source Comments The information contained in this document represents components of the legal health record. It is not the complete legal health record.[facility]
--- OUTSIDE RECORDS SUMMARY | 2025-01-25 00:58 | XMS_ITS | Encounter Summary ---
Author Organization [facility] Address [address] [place] [address] [address] [place] [address] Phone Care Team Providers Care Locker Room Supervisor Name Role Phone Winifred Fenton MD Primary Care Pr ovider Yasmany Richards MD Unavailable [phone] Anthony Oglesby MD Unavailable Reason for Visit * Reason Comments Medication Refill Encounter Details Date Type Department Care Team (Late st Contact Info) Description 03/12/2021 Refill [facility] Neurosurgery 55 [facility], 7th Floor, [address] [place] [address] Alfonso Walker MD, PhD [address] [phone] [email or web address] U Medication Refill Social History Tobacco Use Types [...] of Assessment Author No 11/23/2015 9:40 AM MILET Lmaine Valenzuela MD * Patient has serious difficulty walking or climbing stairs (5yr old or older) Answer Date of Assessment Author No 11/23/2015 9:40 AM EDT Lamine Valenzuela MD * Patient has serious difficulty dressing or bathing (5yr old or older) Answer Date of Assessment Author No 11/23/2015 9:40 AM MILET Lamine Valenzuela MD * Patient has serious [...] Description 02/12/2025 9:00 AM EDT Office Visit [facility] Plastic Surgery 45 [facility] 2nd [place] [address] Herminia Mclain MD 75 [place] [address] [email or web address] 03/17/2025 2:30 PM EST Office Visit [facility] Center for Neuro Oncology 32 [facility], 9th Floor, [address] [place] [address] Anthony Oglesby MD [address] [address] [email or web address] 04/01/2025 1:20 PM EST Office Visit [facility] [address] [address] Boris Hansen MD 243 [place] [address] [email or web address] 04/01/2025 1:40 PM EST Appointment [address] [address] documented as of this encounter Visit Diagnoses Diagnosis Lumbar radiculopathy Thoracic or lumbosacral neuritis or radiculitis, unspecified documented in this encounter Additional Health Concerns Infection Onset Date Last Indicated Resolved Time MRSA 04/09/2021 04/09/2021 04/09/2023 1:21 AM EST CoV-Risk 09/22/2021 09/22/2021 10/03/2021 1:24 AM EDT documented as of this encounter Care Teams Locker Room Supervisor Relationship Specialty Start Date End Date Winifred Fenton MD [address] [place] [address] PCP - General Internal Medicine 10/09/17 Yasmany Richards MD [address] [place] [address] [email or web address] Primary Oncologist Neurology 07/10/1811/19 Anthony Oglesby MD 55 [facility] YA 9 [place] [address] [email or web address] Neurology 11/20/24 documented as of this encounter Additional Source Comments The information contained in this document represents components of the legal health record. It is not the complete legal health record.[facility]
--- OUTSIDE RECORDS SUMMARY | 2025-01-25 00:58 | XMS_ITS | Encounter Summary ---
Author Organization [facility] Address [address] [place] [address] [place] [address] Phone Care Team Providers Care Certified Registered Nurse Practitioner Name Role Phone Ania Wilburn MD Primary Care P rovider Nadege Rutledge PA-C Primary Care Provider U Winifred Parish MD Primary Care Pr ovider Yasmany Richards MD Unavailable [phone] Anthony Oglesby MD Unavailable Encounter Details Date Type Department Care Team (Late st Contact Info) Description 03/23/2015 Transcribe Orders [facility] EKG 70 [place] [address] Unknown, Unknown, Social History Tobacco Use Types Packs/Day Years Used Date Smoking Tobacco: Heavy Smoker Cigarettes Started: 05/28/2007 Comments:used to stop 4-5 PP D- now [...] on file documented as of this encounter Plan of Treatment Upcoming Encounters Date Type Department Care Team (Late st Contact Info) Description 02/12/2025 9:00 AM EDT Office Visit [facility] Plastic Surgery 45 [facility] 2nd [place] [address] Herminia Mclain MD 75 [place] [address] [email or web address] 03/17/2025 2:30 PM EST Office Visit [facility] 32 [facility], 9th Floor, [address] [place] [address] Anthony Oglesby MD [address] [address] [email or web address] 04/01/2025 1:20 PM EST Office Visit [address] [address] Boris Hansen MD [address] [place] [address] [place]@[facility] 04/01/2025 1:40 PM EST Appointment [address] [address] documented as of this encounter Visit Diagnoses Not on filedocumented in this encounter Additional Health Concerns Infection Onset Date Last Indicated Resolved Time MRSA 04/09/2021 04/09/2021 04/09/2023 1:21 AM EST CoV-Risk 09/22/2021 09/22/2021 10/03/2021 1:24 AM EDT documented as of this encounter Care Teams Certified Registered Nurse Practitioner Relationship Specialty Start Date End Date Ania Wilburn MD [address] [address] PCP - General Internal Medicine 07/27/15 12/14/16 Nadege Rutledge PA-C PCP - General Internal Medicine 12/15/16 10/08/17 Winifred Fenton MD [address] [address] PCP - General Internal Medicine 10/09/17 Yasmany Richards MD 55 [place] [address] [email or web address] Primary Oncologist Neurology 07/10/1811/19 Anthony Oglesby MD 55 [facility] 9 [place] [address] [email or web address] Neurology 11/20/24 documented as of this encounter Additional Source Comments The information contained in this document represents components of the legal health record. It is not the complete legal health record.[facility]
--- OUTSIDE RECORDS SUMMARY | 2025-01-25 00:58 | XMS_ITS | Encounter Summary ---
Author Organization [facility] Address [address] [place] [address] [place] [address] Phone Care Team Providers Care Shoe Singer Name Role Phone Winifred Fenton MD Primary Care Pr ovider Yasmany Richards MD Unavailable [phone] Anthony Oglesby MD Unavailable Encounter Details Date Type Department Care Team (Late st Contact Info) Description 02/26/2024 Procedure Pass [facility] [place] 32 [facility], 6th [place] [address] Social History Tobacco Use Types Packs/Day Years [...] Description 02/12/2025 9:00 AM EDT Office Visit [facility] Plastic Surgery [address] [address] Herminia Mclain MD 75 [place] [address] [email or web address] 03/17/2025 2:30 PM EST Office Visit [facility] for Neuro Oncology 32 [facility], 9th Floor, [address] [place] [address] Anthony Oglesby MD 55 [facility] 9 [place] [address] [email or web address] 04/01/2025 1:20 PM EST Office Visit [facility] 243 [facility] 1st [place] [address] Boris Hansen MD 243 [place] [address] [place]@[email or web address] 04/01/2025 1:40 PM EST Appointment [facility] [address] 1st [place] [address] documented as of this encounter Visit Diagnoses Not on filedocumented in this encounter Care Teams Shoe Singer Relationship Specialty Start Date End Date Winifred Fenton MD 230 [employer] 1 [place] [address] PCP - General Internal Medicine 10/09/17 Yasmany Richards MD 55 [place] [address] STARR@[email or web address] Primary Oncologist Neurology 07/10/1811/19 Anthony Oglesby MD 55 [facility] YAW 9 [place] [address] [email or web address] Neurology 11/20/24 documented as of this encounter Additional Source Comments The information contained in this document represents components of the legal health record. It is not the complete legal health record.[facility]
--- OUTSIDE RECORDS SUMMARY | 2025-01-25 00:58 | XMS_ITS | Encounter Summary ---
Author Organization [facility] Address [address] [place] [address] [address] [place] [address] Phone Care Team Providers Care Cardroom Attendant Name Role Phone Winifred Fenton MD Primary Care Pr ovider Yasmany Richards MD Unavailable [phone] Anthony Oglesby MD Unavailable Encounter Details Date Type Department Care Team (Late st Contact Info) Description 12/15/2020 Procedure Pass [facility], Francesco [address] [facility], 2nd Floor, [address] [place] [address] Social History Tobacco Use Types Packs/Day Years [...] Description 02/12/2025 9:00 AM EDT Office Visit [facility] Plastic Surgery [address] [address] Herminia Mclain MD 75 [place] [address] [email or web address] 03/17/2025 2:30 PM EST Office Visit [facility] 32 [facility], 9th Floor, [address] [place] [address] Anthony Oglesby MD [address] [address] MAK@[email or web address] 04/01/2025 1:20 PM EST Office Visit [facility] [address] [address] Boris Hansen MD 243 [place] [address] [place]@[facility] 04/01/2025 1:40 PM EST Appointment [facility] [address] 1st [place] [address] documented as of this encounter Visit Diagnoses Not on filedocumented in this encounter Additional Health Concerns Infection Onset Date Last Indicated Resolved Time MRSA 04/09/2021 04/09/2021 04/09/2023 1:21 AM EST CoV-Risk 09/22/2021 09/22/2021 10/03/2021 1:24 AM EDT documented as of this encounter Care Teams Cardroom Attendant Relationship Specialty Start Date End Date Winifred Fenton MD [address] [address] PCP - General Internal Medicine 10/09/17 Yasmany Richards MD 55 [place] [address] [email or web address] Primary Oncologist Neurology 07/10/1811/19 Anthony Oglesby MD 55 [facility] [address] [place] [address] [email or web address] Neurology 11/20/24 documented as of this encounter Additional Source Comments The information contained in this document represents components of the legal health record. It is not the complete legal health record.[facility]
--- OUTSIDE RECORDS SUMMARY | 2025-01-25 00:58 | XMS_ITS | Encounter Summary ---
Author Organization [facility] Address [address] [place] [address] [place] [address] Phone Care Team Providers Care Compound Mixer Name Role Phone Winifred Fenton MD Primary Care Pr ovider Yasmany Richards MD Unavailable [phone] Anthony Oglesby MD Unavailable Encounter Details Date Type Department Care Team (Late st Contact Info) Description 07/07/2024 Procedure Pass [facility] Main [place] 243 [place] [address] Social History Tobacco Use Types Packs/Day Years [...] Description 02/12/2025 9:00 AM EDT Office Visit [facility] Plastic Surgery 45 [facility] 2nd [place] [address] Herminia Mclain MD 75 [place] [address] [email or web address] 03/17/2025 2:30 PM EST Office [facility]cology 32 [facility], 9th Floor, [address] [place] [address] Anthony Oglesby MD 55 [facility] 9 [place] [address] [email or web address] 04/01/2025 1:20 PM EST Office Visit [facility] 243 [facility] 1st [place] [address] Boris Hansen MD 243 [place] [address] [place]@[facility] 04/01/2025 1:40 PM EST Appointment [facility] [address] 1st [place] [address] documented as of this encounter Visit Diagnoses Not on filedocumented in this encounter Care Teams Compound Mixer Relationship Specialty Start Date End Date Winifred Fenton MD 230 [facility] 1 [place] [address] PCP - General Internal Medicine 10/09/17 Yasmany [place] MD 55 [place] [address] STARR@[email or web address] Primary Oncologist Neurology 07/10/1811/19 Anthony Oglesby MD 55 [facility] YA 9 [place] [address] [email or web address] Neurology 11/20/24 documented as of this encounter Additional Source Comments The information contained in this document represents components of the legal health record. It is not the complete legal health record.[facility]
--- OUTSIDE RECORDS SUMMARY | 2025-01-25 00:58 | XMS_ITS | Encounter Summary ---
Author Organization [employer] Address 75 [facility] 7t [place] [address] Care Team Providers Care Make Up Operator Name Role Phone Winifred Fenton MD Primary Care Provider [phone] Reason for Visit * Reason Comments Care Coordination CHW outreach for SDO H PT-1 and food needs-referral completed Encounter Details Date Type Department Care Team (Latest Contact Info) Description 01/20/2025 Patient Outreach [facility] MEDIC[facility] 230 [place] [address] Garett Wang Care Coordination (CHW outreach for SDOH PT-1 and food needs-referral completed /) Social History Tobacco Use Types Packs/Day Years [...] AM EDT documented as of this encounter Progress Notes * Garett Wang - 01/20/2025 10:27 AM EDT CHW Garett Wang, placed outbound call to patient for assistance with SDOH as a referral was received by the provider. Patient's name and were confirmed. Patient screened positive for the following SDOH food insecurities. CHW referral patient to the local list of pantries in the area for help. PT-1 requested was send out in behalf of patient for futures appt. Patient verbalizes understandin g, and able to agree with plan to follow up. Patient educated on extended clinic hours on Mondays through Wednesdays, and Walk-In Urgent Care Located in [facility] of [facility]. Patient provided with after-hours line for [facility], , which offer night time triage service and option to transfer to wellness consultant provider if needed. documented in this encounter Plan of Treatment Upcoming Encounters Date Type Department Care Team ([facility] st Contact Info) Description 03/03/2025 2:45 PM EST Office Visit [facility] 505 [place] [address] Winifred Fenton MD 505 [place] [address] documented as of this encounter Visit Diagnoses Not on filedocumented in this encounter Additional Health Concerns Assessment Noted Time PHQ-9 Depression Total Score: 17 024 2:29 PM EDT documented as of this encounter Care Teams Make Up Operator Relationship Specialty Start Date End Date Winifred Fenton MD [address] [place] [address] PCP - General Internal Medicine 09/13/17 Giovanni Randhawa Editorial Project ManagerFront Desk Assistant 07/23/23 documented as of this encounter
--- OUTSIDE RECORDS SUMMARY | 2025-01-25 00:58 | XMS_ITS | Encounter Summary ---
Author Organization [facility] Address [address] [place] [address] Phone Care Team Providers Care Meal Attendant Name Role Phone Winifred Fenton MD Primary Care Pr ovider Yasmany Richards MD Unavailable [phone] Anthony Oglesby MD Unavailable Encounter Details Date Type Department Care Team (Late st Contact Info) Description 07/13/2020 Prep for Surgery [facility] Plastic Surgery 45 [facility] 2nd [place] [address] Margaret Sheppard, TAMIKO [address] [place] [phone] [email or web address] Neurofibromatosis, type 1 (Primary Dx) Social History Tobacco Use Types [...] Description 02/12/2025 9:00 AM EDT Office Visit [facility] Plastic Surgery 45 [facility] 2nd [place] [address] Herminia Mclain MD 75 [place] [address] [email or web address] 03/17/2025 2:30 PM EST Office Visit [facility] Center for Neuro Oncology 32 [facility], 9th Floor, [address] [place] [address] Anthony Oglesby MD 55 [facility] 9 [place] [address] [email or web address] 04/01/2025 1:20 PM EST Office Visit [facility] [address] [address] Boris Hansen MD 243 [place] [address] [email or web address] 04/01/2025 1:40 PM EST Appointment [facility] [address] [address] documented as of this encounter Visit Diagnoses Diagnosis Neurofibromatosis, type 1- Primary Neurofibromatosis, Type 1 (von Recklinghausen's disease) documented in this encounter Additional Health Concerns Infection Onset Date Last Indicated Resolved Time [facility] 04/09/2021 04/09/2021 04/09/2023 1:21 AM EST CoV-Risk 09/22/2021 09/22/2021 10/03/2021 1:24 AM EDT documented as of this encounter Care Teams Meal Attendant Relationship Specialty Start Date End Date Winifred Fenton MD [address] [address] PCP - General Internal Medicine 10/09/17 Yasmany Richards MD 55 [place] [address] [email or web address] Primary Oncologist Neurology 07/10/1811/19 Anthony Oglesby MD 55 [facility] YAW 9 [place] [address] MAK@[email or web address] Neurology 11/20/24 documented as of this encounter Additional Source Comments The information contained in this document represents components of the legal health record. It is not the complete legal health record.[facility]
--- OUTSIDE RECORDS SUMMARY | 2025-01-25 00:58 | XMS_ITS | Encounter Summary ---
Author Organization [facility] Address [address] [place] [address] [place] [address] Phone Care Team Providers Care Chucking Machine Set Up Operator Name Role Phone Winifred Fenton MD Primary Care Pr ovider Yasmany Richards MD Unavailable [phone] Anthony Oglesby MD Unavailable Encounter Details Date Type Department Care Team (Late st Contact Info) Description 03/08/2021 Procedure Pass [facility] [place] [address] [place] [address] Social History Tobacco Use Types Packs/Day Years [...] Description 02/12/2025 9:00 AM EDT Office Visit [facility] Plastic Surgery 45 [facility] 2nd [place] [address] Herminia Mclain MD 75 [place] [address] [email or web address] 03/17/2025 2:30 PM EST Office Visit [facility] for Neuro Oncology 32 [facility], 9th Floor, [address] [place] [address] Anthony Oglesby MD [address] [address] OLIVERUHarry@[email or web address] 04/01/2025 1:20 PM EST Office Visit [facility] 243 [facility] 1st [place] [address] Boris Hansen MD 243 [place] [address] [place]@[email or web address] 04/01/2025 1:40 PM EST Appointment [facility] 243 [facility] 1st [place] [address] documented as of this encounter Visit Diagnoses Not on filedocumented in this encounter Additional Health Concerns Infection Onset Date Last Indicated Resolved Time MRSA 04/09/2021 04/09/2021 04/09/2023 1:21 AM EST CoV-Risk 09/22/2021 09/22/2021 10/03/2021 1:24 AM EDT documented as of this encounter Care Teams Chucking Machine Set Up Operator Relationship Specialty Start Date End Date Winifred Fenton MD [address] [address] PCP - General Internal Medicine 10/09/17 Yasmany Richards MD [address] [place] [address] STARR@[email or web address] Primary Oncologist Neurology 07/10/1811/19 Anthony Oglesby MD 55 [facility] YA 9 [place] [address] MAK@[email or web address] Neurology 11/20/24 documented as of this encounter Additional Source Comments The information contained in this document represents components of the legal health record. It is not the complete legal health record.[facility]
--- OUTSIDE RECORDS SUMMARY | 2025-01-25 00:58 | XMS_ITS | Encounter Summary ---
Author Organization [facility] Address [address] [place] [address] [address] [place] [address] Phone Care Team Providers Care Communications Editor Name Role Phone Winifred Fenton MD Primary Care Pr ovider Yasmany Richards MD Unavailable [phone] Anthony Oglesby MD Unavailable Reason for Visit * Reason Comments Medication Refill Encounter Details Date Type Department Care Team (Late st Contact Info) Description 01/11/2021 Refill [facility] 55 [facility], 7th Floor, [address] [place] [address] Alfonso Walker MD, PhD [address] [phone] [email or web address]@[email or web address]ED U Medication Refill Social History Tobacco Use [...] Description 02/12/2025 9:00 AM EDT Office Visit [facility] Plastic Surgery 45 [facility] 2nd [place] [address] Herminia Mclain MD 75 [place] [address] [email or web address] 03/17/2025 2:30 PM EST Office Visit [facility] Center for Neuro Oncology 32 [facility], 9th Floor, [address] [place] [address] Anthony Oglesby MD [address] [address] [email or web address] 04/01/2025 1:20 PM EST Office Visit [facility] [address] [address] Boris Hansen MD 243 [place] [address] [place]@[facility] 04/01/2025 1:40 PM EST Appointment [address] [address] documented as of this encounter Visit Diagnoses Diagnosis Lumbar radiculopathy Thoracic or lumbosacral neuritis or radiculitis, unspecified documented in this encounter Additional Health Concerns Infection Onset Date Last Indicated Resolved Time MRSA 04/09/2021 04/09/2021 04/09/2023 1:21 AM EST CoV-Risk 09/22/2021 09/22/2021 10/03/2021 1:24 AM EDT documented as of this encounter Care Teams Communications Editor Relationship Specialty Start Date End Date Winifred Fenton MD [address] [place] [address] PCP - General Internal Medicine 10/09/17 Yasmany Richards MD [address] [place] [address] STARR@[email or web address] Primary Oncologist Neurology 07/10/1811/19 Anthony Oglesby MD 55 [facility] YA 9 [place] [address] MAK@[email or web address] Neurology 11/20/24 documented as of this encounter Additional Source Comments The information contained in this document represents components of the legal health record. It is not the complete legal health record.[facility]
--- OUTSIDE RECORDS SUMMARY | 2025-01-25 00:58 | XMS_ITS | Encounter Summary ---
Author Organization [facility] Address [address] [place] [address] [place] [address] Phone Care Team Providers Care Care Professionals Name Role Phone Winifred Fenton MD Primary Care Pr ovider Yasmany [place] MD Unavailable [phone] Anthony Oglesby MD Unavailable Encounter Details Date Type Department Care Team (Late st Contact Info) Description 07/07/2024 Procedure Pass [facility] 2 55 [facility], 2nd [place] [address] Social History Tobacco Use Types Packs/Day Years [...] Description 02/12/2025 9:00 AM EDT Office Visit [facility] Plastic Surgery 45 [facility] 2nd [place] [address] Herminia Mclain MD 75 [place] [address] [email or web address] 03/17/2025 2:30 PM EST Office Visit [facility] Center for Neuro Oncology 32 [facility], 9th Floor, [address] [place] [address] Anthony Oglesby MD 55 [facility] 9 [place] [address] OLIVERUHarry@[facility] 04/01/2025 1:20 PM EST Office Visit [facility] 243 [facility] 1st [place] [address] Boris Hansen MD 243 [place] [address] [place]@[email or web address] 04/01/2025 1:40 PM EST Appointment [facility] [address] 1st [place] [address] documented as of this encounter Visit Diagnoses Not on filedocumented in this encounter Care Teams Care Professionals Relationship Specialty Start Date End Date Winifred Fenton MD 230 [facility] 1 [place] [address] PCP - General Internal Medicine 10/09/17 Yasmany [place] MD 55 [place] [address] STARR@[email or web address] Primary Oncologist Neurology 07/10/1811/19 Anthony Oglesby MD 55 [facility] YA 9 [place] [address] [email or web address] Neurology 11/20/24 documented as of this encounter Additional Source Comments The information contained in this document represents components of the legal health record. It is not the complete legal health record.[facility]
--- OUTSIDE RECORDS SUMMARY | 2025-01-25 00:58 | XMS_ITS | Encounter Summary ---
Author Organization [facility] Address [address] [place] [address] [place] [address] Phone Care Team Providers Care Accounts Receivable Analyst Name Role Phone Winifred Fenton MD Primary Care Pr ovider Yasmany Richards MD Unavailable [phone] Anthony Oglesby MD Unavailable Encounter Details Date Type Department Care Team (Late st Contact Info) Description 04/11/2021 Procedure Pass [facility] PERIOPER[facility]IVE DEPT [address] [place] [phone] Social History Tobacco Use Types Packs/Day Years [...] Description 02/12/2025 9:00 AM EDT Office Visit [facility] Plastic Surgery 45 [facility] 2nd [place] [address] Herminia Mclain MD 75 [place] [address] [email or web address] 03/17/2025 2:30 PM EST Office Visit [facility] Center for Neuro Oncology 32 [facility], 9th Floor, [address] [place] [address] Anthony Oglesby MD 55 [facility] 9 [place] [address] OLIVERUHarry@[email or web address] 04/01/2025 1:20 PM EST Office Visit [facility] 243 [facility] 1st [place] [address] Boris Hansen MD 243 [place] [address] [place]@[facility] 04/01/2025 1:40 PM EST Appointment [facility] 243 [facility] 1st [place] [address] documented as of this encounter Visit Diagnoses Not on filedocumented in this encounter Additional Health Concerns Infection Onset Date Last Indicated Resolved Time MRSA 04/09/2021 04/09/2021 04/09/2023 1:21 AM EST CoV-Risk 09/22/2021 09/22/2021 10/03/2021 1:24 AM EDT documented as of this encounter Care Teams Accounts Receivable Analyst Relationship Specialty Start Date End Date Winifred Fenton MD [address] [address] PCP - General Internal Medicine 10/09/17 Yasmany [place] MD [address] [place] [address] STARR@[email or web address] Primary Oncologist Neurology 07/10/1811/19 Anthony Oglesby MD 55 [facility] YA 9 [place] [address] MAK@[email or web address] Neurology 11/20/24 documented as of this encounter Additional Source Comments The information contained in this document represents components of the legal health record. It is not the complete legal health record.[facility]
--- OUTSIDE RECORDS SUMMARY | 2025-01-25 00:58 | XMS_ITS | Clinical Summary ---
Author Organization [facility] Address [address] [place] [address] Phone Care Team Providers Care Manager Integrity Name Role Phone Winifred Fenton MD Primary Care Pr ovider Anthony Oglesby MD Unavailable Allergies Active Allergy Reactions Criticality Noted Date Comments Nutritional Supplement-Fiber Rash Low 021 Medications lisinopril (PRINIVIL,ZESTR IL) 20 MG tablet Take 20 mg by mouth daily before breakfast. Active benzoyl peroxide 5 % gel Apply topically daily. 1 Active BANOPHEN 25 mg capsule TAKE 1 CAPSULE (25 MG TOTAL) BY MOUTH NIGHTLY AT BEDTIME NEEDED FOR ITCHING. 30 capsule 3 2 Active hypromellose (ARTIFICIAL TEARS,FEDY36-RR PRO,) Drop Place 1 drop into each eye 4 (four) times a day as needed. 15 mL 12 2 Active TOPIRAMATE ORAL Take 50 mg by mouth once as needed. Active baclofen (LIORESAL) 20 MG tablet Take 20 mg by mouth 3 (three) times a day. Active triamcinolone acetonide 0.1 % ointment Apply topically 2 (two) times a day. 454 g 3 3 Active albuterol 90 mcg/actuation inhaler Inhale 2 puffs into the lungs. 2 Active magnesium 200 mg Tab 2 (two) times a day. 3 Active acetaminophen (TYLENOL) 325 mg tablet Take 2 tablets (650 mg total) by mouth every 6 (six) hours as needed. 0 4 Active docusate sodium (COLACE) 100 MG capsule Take 1 capsule (100 mg total) by mouth 2 (two) times a day as needed for mild constipation. 4 Active polyethylene glycol (MIRALAX) 17 gram packet Take 17 g by mouth daily as needed for other (free text field) (severe constipation). 4 Active senna (SENOKOT) 8.6 mg tablet Take 2 tablets by mouth nightly at bedtime as needed for constipation. 4 Active Additional Information Patient not taking.Reported on 10/02/2024 DULoxetine (CYMBALTA) 60 MG capsule TAKE 1 CAPSULE BY MOUTH EVERY DAY 90 capsule 3 5 Active Active Problems Patient Care Coordination No te Formatting of this note migh t be different from the original. [facility] approved mekinist 0.5mg tablets through 09/08/18 07/08/18 did a PA with [employer] for clindamycin gel for a rash d/t medication 08/28/19 Clindamycin gel PA faxed to -approved till 08/18 $0 copay Patient needs visitor due to hearing/visual deficits 08/18/21: Clindamycin Phosphate 1% gel PA faxed to [employer] and will await results. 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 Neurofibromatosis 07/12/2015 Neurofibroma 03/12/2015 Type 1 neurofibromatosis 12/02/2014 Anemia Anxiety Resolved Problems Problem Noted Date Diagnosed Date Resolved Date Mantoux: positive 10/19/2014 01/26/2015 Encounters Date Type Department Care Team Description 10/30/2024 9:00 AM EDT Office Visit [facility] Plastic Surgery 45 [facility] 2nd [place] [address] Herminia Mclain MD Type 1 neurofibromatosis (Primary Dx) from Last 3 Months Immunizations Immunization Administration Dates Next Due Influenza Quadrivalent Prese rvative Free IM 07/30/2023(Deferred: Patient Refused),03/13/2015 Family History Medical History Relation Comments Diabetes Father Early CAD Father Relation Status Comments Brother Alive Father Alive Mother Alive Sister Alive Social History Tobacco Use Types Packs/Day Years [...] file Not on file Not on file Last Filed Vital Signs Vital Sign Reading Time Taken Comments Blood Pressure 126/64 10/02/2024 10:50 AM EDT Pulse 94 10/02/2024 10:50 AM EDT Temperature 36.3 C (97.3 F) 09/15/2024 12:00 PM EDT Respiratory Rate 16 09/15/2024 12:00 PM EDT Oxygen Saturation 97% 10/02/2024 10:50 AM EDT Inhaled Oxygen Concentration 35% 11/22/2015 2 :25 PM EDT Weight 87.5 kg (193 lb) 10/02/2024 10:50 AM EDT Height 166.4 cm (5' 5.5 ) 10/02/2024 10:50 AM ED T Body Mass Index 31.63 10/02/2024 10:50 AM EDT Plan of Treatment Upcoming Encounters Date Type Department Care Team (Late st Contact Info) Description 02/12/2025 9:00 AM EDT Office Visit [facility] Plastic Surgery [address] [facility] 2nd [place] [address] Herminia Mclain MD 75 [place] [address] [email or web address] 03/17/2025 2:30 PM EST Office Visit [facility] Center for Neuro Oncology [address] [facility], 9th Floor, [address] [place] [address] Anthony Oglesby MD [address] [place] [address] [email or web address] 04/01/2025 1:20 PM EST Office Visit [facility] [address] [address] Boris Hansen MD 243 [place] [address] [email or web address] 04/01/2025 1:40 PM EST Appointment [address] [address] Health Maintenance Due Date Last Done Comments DEPRESSION SCREENING 2004 HEPATITIS C SCREENING 02/04/2010 HIV ONE-TIME SCREENING (18-65 YEARS) 02/04/2010 CREATININE LEVEL 07/29/2024 07/30/2023, , 07/28/2023, Additional history exists POTASSIUM LEVEL 07/29/2024 07/30/2023, 06/30, 07/28/2023, Additional history exists INFLUENZA VACCINE (#1) 2024 , 01/22/2019, 03/08/2018, Additional history exists COVID-19 VACCINE ( season) 2024 09/17/2020, 08/20/2020 SMOKING Hx and SMOKELESS TOBACCO SCREENING 10/02/2025 10/02/2024 Adult Td,Tdap Booster 10/16/2025 10/17/2015 HEPATITIS A VACCINES Aged Out 01/24/2024 No long er eligible based on patient's age to complete this topic PNEUMOCOCCAL VACCINES (0-49 years) Completed 01/24/2024 HIB VACCINES Aged Out No longer eligi ble based on patient's age to complete this topic MENINGOCOCCAL VACCINES (ACWY) Aged Out No longer eligible based on patient's age to complete this topic MENINGOCOCCAL VACCINES (B) Aged Out N o longer eligible based on patient's age to complete this topic Medical Devices Implanted Type Area Consulting Solution Director Device Identifier Shelf Expiration Date Model / Serial / Lot System Shunt 2.0 Ped With Prechamber Progav - [id number] Implanted:Qty: 1 on 07/27/2023 by Gildardo Sparks MD at [facility] Right: Ventricle [employer] 03/22/2027 [id number] / [id number] / [id number] Description:Ventricular zandra toneal shunt Procedures Procedure Name Priority Date/Time Associated Diagnosis Comments BASIC METABOLIC PANEL Routine 07/30/2023 5:20 AM EDT from Last 3 Months or Most Recently Relevant to Health Maintenance Results * Basic metabolic panel (07/30/2023 5:20 AM EDT) SODIUM 139 135 - 145 mmol/L [facility] POTASSIUM 4.1 3.4 - 5.0 mmol/L [facility] CHLORIDE 102 98 - 108 mmol/L [facility] CO2 26 23 - 32 mmol/L [facility] BUN 18 8 - 25 mg/dL [facility] CREATININE 0.72 0.60 - 1.50 mg/dL [facility] GLUCOSE 100 70 - 110 mg/dL [facility] CALCIUM 9.4 8.5 - 10.5 mg/dL [facility] EGFR >120 >59 mL/min/1.7 3m2 [facility] Comment:Estimated glomerular filtration rate calculated using the CKD-EPI refit equation. ANION GAP 11 3 - 17 mmol/L [facility] Blood 07/30/2023 5:20 AM EDT 07/30/2023 6:29 AM EDT us Gildardo Sparks MD LAB BLOOD ORDERABLES Final Resul t [address] [address] from Last 3 Months or Most Recently Relevant to Health Maintenance [place] [address] [place] [address] C3 ACO C3 ACO C3 ACO C3 ACO C3 ACO C3 ACO C3 ACO C3 ACO C3 ACO Advance Directives For more information, please contact: [phone] (9AM - 5PM [facility], Sunday-Sunday) Documents on File Type Date Recorded Patient Senior Director Of Strategy Expl anation Healthcare Proxy 03/12/2015 7:52 AM * Full Code (Latest Code Status on File) Date Activated Date Inactivated Comments 07/26/2023 5:49 PM Question Answer Comments Code Status Confirmed With: Other (specify below ) Code Discussion Comments: presumed * Full Code (Presumed) Date Activated Date Inactivated Comments 11/22/2015 6:29 PM 11/23/2015 12:51 PM * Full Code (Presumed) Date Activated Date Inactivated Comments 07/12/2015 4:02 PM 07/14/2015 5:05 PM * Full Code (Presumed) Date Activated Date Inactivated Comments 03/18/2015 12:17 PM 03/23/2015 2:44 PM * Full Code (Presumed) Date Activated Date Inactivated Comments 03/12/2015 5:03 PM 03/15/2015 5:00 PM Care Teams Manager Integrity Relationship Specialty Start Date End Date Winifred Fenton MD [address] [address] PCP - General Internal Medicine 10/09/17 Anthony Oglesby MD [address] [place] [address] [email or web address] Neurology 11/20/24 Additional Source Comments The information contained in this document represents components of the legal health record. It is not the complete legal health record.[facility]
--- OUTSIDE RECORDS SUMMARY | 2025-01-25 00:58 | XMS_ITS | Encounter Summary ---
Author Organization [facility] Address [address] [place] [address] [place] [address] Phone Care Team Providers Care Associate Field Service Engineer Name Role Phone Winifred Fenton MD Primary Care Pr ovider Yasmany Richards MD Unavailable [phone] Anthony Oglesby MD Unavailable Encounter Details Date Type Department Care Team (Late st Contact Info) Description 04/08/2021 Procedure Pass [facility], Main [address], Floor 1 [place] [address] Social History Tobacco Use Types Packs/Day Years [...] 11/23/2015 9:40 AM Lamine Kowalski MD * Calculated C-SSRS Risk Score (Lifetime/Recent) Answer Date of Assessment Author No Risk Indicated 04/09/2021 3:00 PM Ani Mariee RN * [place] Suicide Severity Rating Scale (Screener/Recent Self-Report) Question Answer Date of Assessment Author 1. Wish to be (Past 1 Month) No 04/09/2021 3:00 PM Ani Garcia RN 2. Non-Specific Active Suici emma Thoughts (Past 1 Month) No 04/09/2021 3:00 PM Col gordon Garcia RN 6. Suicidal Behavior (Lifetime) No 3:00 PM Ani Garcia RN documented as of this encounter Mental Status * Patient has serious difficulty concentrating, remembering, or making decisions due to physical, mental, or emotional condition Answer Entry Date Author No 11/23/2015 9:40 AM Lamine Kowalski MD documented in this encounter Plan of Treatment Upcoming Encounters Date Type Department Care Team (Late st Contact Info) Description 02/12/2025 9:00 AM EDT Office Visit [facility] Plastic Surgery [address] [address] Herminia Mclain MD 75 [place] [address] [email or web address] 03/17/2025 2:30 PM EST Office Visit [facility] Center for Neuro Oncology [address] [facility], 9th Floor, [address] [place] [address] Anthony Oglesby MD [address] [address] [email or web address] 04/01/2025 1:20 PM EST Office Visit [address] [address] Boris Hansen MD [address] [place] [address] [email or web address] 04/01/2025 1:40 PM EST Appointment [address] [address] documented as of this encounter Visit Diagnoses Not on filedocumented in this encounter Additional Health Concerns Infection Onset Date Last Indicated Resolved Time MRSA 04/09/2021 04/09/2021 04/09/2023 1:21 AM EST CoV-Risk 09/22/2021 09/22/2021 10/03/2021 1:24 AM EDT documented as of this encounter Care Teams Associate Field Service Engineer Relationship Specialty Start Date End Date Winifred Fenton MD [address] [place] [address] PCP - General Internal Medicine 10/09/17 Yasmany Richards MD [address] [place] [address] [email or web address] Primary Oncologist Neurology 07/10/1811/19 Anthony Oglesby MD [address] [place] [address] [email or web address] 11/20/24 documented as of this encounter Additional Source Comments The information contained in this document represents components of the legal health record. It is not the complete legal health record.[facility]
--- OUTSIDE RECORDS SUMMARY | 2025-01-25 00:59 | XMS_ITS | Encounter Summary ---
Author Organization [facility] Address [address] [place] [address] [place] [address] Phone Care Team Providers Care Communications Tower Climber Name Role Phone Winifred Fenton MD Primary Care Pr ovider Yasmany Richards MD Unavailable [phone] Anthony Oglesby MD Unavailable Encounter Details Date Type Department Care Team (Late st Contact Info) Description 07/26/2023 Procedure Pass [facility], [place] [address] [facility], 6th [place] [address] Social History Tobacco Use Types Packs/Day Years [...] of Assessment Author No 11/23/2015 9:40 AM Lmaine Kowalski MD * Patient is blind or [...] 9:40 AM EDT Lamine Valenzuela MD * Calculated C-SSRS Risk Score (Lifetime/Recent) Answer Date of Assessment Author No Risk Indicated 07/26/2023 6:14 PM EDT Patricia Alexander RN * [place] Suicide Severity Rating Scale (Screener/Recent Self-Report) Question Answer Date of Assessment Author 1. Wish to be (Past 1 Month) No 07/26/2023 6:14 PM EDT Patricia Alexander RN 2. Non-Specific Active Suici emma Thoughts (Past 1 Month) No 07/26/2023 6:14 PM EDT Patricia Alexander RN 6. Suicidal Behavior (Lifetime) No 6:14 PM MILET Patricia Alexander RN documented as of this encounter Mental Status * Patient has serious difficulty concentrating, remembering, or making decisions due to physical, mental, or emotional condition Answer Entry Date Author No 11/23/2015 9:40 AM EDT Lamine Valenzuela MD documented in this encounter Plan of Treatment Upcoming Encounters Date Type Department Care Team (Late st Contact Info) Description 02/12/2025 9:00 AM EDT Office Visit [facility] Plastic Surgery 45 [facility] 2nd [place] [address] Herminia Mclain MD 75 [place] [address] [email or web address] 03/17/2025 2:30 PM EST Office Visit [facility] Center for Neuro Oncology [address] [facility], 9th Floor, [address] [place] [address] Anthony Oglesby MD [address] [address] [email or web address] 04/01/2025 1:20 PM EST Office Visit [address] [address] Boris Hansen MD 243 [place] [address] [email or web address] 04/01/2025 1:40 PM EST Appointment [address] [address] documented as of this encounter Visit Diagnoses Not on filedocumented in this encounter Care Teams Communications Tower Climber Relationship Specialty Start Date End Date Winifred Fenton MD [address] [place] [address] PCP - General Internal Medicine 10/09/17 Yasmany Richards MD [address] [place] [address] [email or web address] Primary Oncologist Neurology 07/10/1811/19 Anthony Oglesby MD [address] [place] [address] [email or web address] Neurology 11/20/24 documented as of this encounter Additional Source Comments The information contained in this document represents components of the legal health record. It is not the complete legal health record.[facility]
--- OUTSIDE RECORDS SUMMARY | 2025-01-25 00:59 | XMS_ITS | Encounter Summary ---
Author Organization [facility] Address [address] [place] [address] Phone Care Team Providers Care Facilities Mechanical Design Engineer Name Role Phone Winifred Fenton MD Primary Care Pr ovider Yasmany Richards MD Unavailable [phone] Anthony Oglesby MD Unavailable Encounter Details Date Type Department Care Team (Late st Contact Info) Description 06/16/2020 Procedure Pass [facility], [address] [address] Social History Tobacco Use Types Packs/Day Years [...] Description 02/12/2025 9:00 AM EDT Office Visit [facility] Plastic Surgery [address] [address] Herminia Mclain MD 75 [place] [address] [email or web address] 03/17/2025 2:30 PM EST Office Visit [facility] Center for Neuro Oncology [address] [facility], 9th Floor, [address] [place] [address] Anthony Oglesby MD [address] [address] [email or web address] 04/01/2025 1:20 PM EST Office Visit [facility] [address] [address] Boris Hansen MD 243 [place] [address] [email or web address] 04/01/2025 1:40 PM EST Appointment [facility] [address] [facility] 1st [place] [address] documented as of this encounter Visit Diagnoses Not on filedocumented in this encounter Additional Health Concerns Infection Onset Date Last Indicated Resolved Time MRSA 04/09/2021 04/09/2021 04/09/2023 1:21 AM EST CoV-Risk 09/22/2021 09/22/2021 10/03/2021 1:24 AM EDT documented as of this encounter Care Teams Facilities Mechanical Design Engineer Relationship Specialty Start Date End Date Winifred Fenton MD [address] [address] PCP - General Internal Medicine 10/09/17 Yasmany Richards MD [address] [place] [address] [email or web address] Primary Oncologist Neurology 07/10/1811/19 Anthony Oglesby MD 55 [facility] Y[address] 9 [place] [address] [email or web address] Neurology 11/20/24 documented as of this encounter Additional Source Comments The information contained in this document represents components of the legal health record. It is not the complete legal health record.[facility]
--- OUTSIDE RECORDS SUMMARY | 2025-01-25 00:59 | XMS_ITS | Encounter Summary ---
Author Organization [facility] Address [address] [place] [address] Phone Care Team Providers Care Plastics Factory Worker Name Role Phone Winifred Fenton MD Primary Care Pr ovider Yasmany Richards MD Unavailable [phone] Anthony Oglesby MD Unavailable Encounter Details Date Type Department Care Team (Late st Contact Info) Description 07/10/2023 Procedure Pass [facility], [address] [address] Social History Tobacco Use Types Packs/Day Years [...] on file 08/25/2022 No 08/25/2022 No 08/25/2022 Digital Access Answer Date Recorded No 09/22/2022 No 09/22/2022 Reliable internet access at home? Not on file 09/22/2022 Device with a working camera? Not on file Sex and Gender Information Value Date Recorded [...] 9:40 AM MILET Lamine Valenzuela MD documented as of this [...] 02/12/2025 9:00 AM EDT Office Visit [facility] Plastic Surgery 45 [facility] 2nd [place] [address] Herminia Mclain MD 75 [place] [address] [email or web address] 03/17/2025 2:30 PM EST Office Visit [facility] for [facility] Oncology [address] [facility], 9th Floor, [address] [place] [address] Anthony Oglesby MD [address] [address] [email or web address] 04/01/2025 1:20 PM EST Office Visit [address] [address] Boris Hansen MD [address] [place] [address] [email or web address] 04/01/2025 1:40 PM EST Appointment [address] [address] documented as of this encounter Visit Diagnoses Not on filedocumented in this encounter Care Teams Plastics Factory Worker Relationship Specialty Start Date End Date Winifred Fenton MD [address] [place] [address] PCP - General Internal Medicine 10/09/17 Yasmany Richards MD [address] [place] [address] [email or web address] Primary Oncologist Neurology 07/10/1811/19 Anthony Oglesby MD [address] [place] [address] [email or web address] Neurology 11/20/24 documented as of this encounter Additional Source Comments The information contained in this document represents components of the legal health record. It is not the complete legal health record.[facility]
--- OUTSIDE RECORDS SUMMARY | 2025-01-25 00:59 | XMS_ITS | Clinical Summary ---
Author Organization [facility] ity Address [address] [place] [address] Care Team Providers Care Sodder Name Role Phone Winifred Fenton MD Primary Care Provider [phone] Social History Tobacco Use Types Packs/Day Years [...] of 3 - 19+ 3-dose series) 02/04/2011 HIV Screening 04/02/2022 Hepatitis C Screening 04/02/2022 Social Influencers of Health Screening 04/02/2022 Depression Screening 04/30/2024 COVID-19 Vaccine ( - 2023-2 5 season) 2024 Influenza Vaccine (#1) 2024 RSV Immunization Adult Patie nts (1 - 1-dose 75+ series) 02/04/2067 HIB Vaccines Aged Out No longer eligi [...] 5 Years) and At-Risk Patients (6 to 49 Years) Aged Out No longer eligible b ased on patient's age to complete this topic RSV Immunization Patients Un sophia 20 months Aged Out No longer eligible b ased on patient's age to complete this topic Varicella Vaccines Aged Out No longer eligible based on patient's age to complete this topic Care Teams Sodder Relationship Specialty Start Date End Date Winifred Fenton MD [address] [place] [address] PCP - General Internal Medicine 08/18/19
--- OUTSIDE RECORDS SUMMARY | 2025-01-25 00:59 | XMS_ITS | Clinical Summary ---
Author Organization [employer] Address [address] [facility] 7t [place] [address] Care Team Providers Care College Director Name Role Phone Winifred Fenton MD Primary Care Provider [phone] Allergies Active Allergy Reactions Criticality Noted Date Comments Nutritional Supplements Rash Low 07/29/2020 Medications B Complex Vitamins (RA B-Complex with B-12) tablet Take 1 tablet by mouth. 020 Active dextran 70-hypromellose (artificial tears) 0.1-0.3 % ophthalmic solution Administer 1 drop into affected eye(s) if needed in the morning, at noon, in the evening, and at bedtime. 022 Active diphenhydrAMINE (BENADryl) 25 MG tablet Take 25 mg by mouth 2 times daily. 022 Active DULoxetine (Cymbalta) [address] capsule Take 60 mg by mouth in the morning. 018 Active magnesium 200 MG tablet TAKE 1 TABLET BY MOUTH 3 TIMES WEEKLY NEEDED Active selumetinib (Koselugo) 25 MG chemo capsule Take 25 mg by mouth 2 times daily. 023 Active Salicylic Acid (Mediplast) 40 % miscIndications: Plantar wart of left foot To apply daily to the affected area. Protect the surrounding skin with petroleum Jelly 1 each 1 023 Active gabapentin (Neurontin) 100 MG capsuleIndicatio ns:Lumbar radiculopathy Take 3 capsules (300 mg) by mouth every 8 (eight) hours. 270 capsule 11 12/27/2 023 Active topiramate (Topamax) 100 MG tablet Take 1 tablet by mouth if needed at bedtime (pain). Active oxyCODONE (Roxicodone) 5 MG immediate release tablet Take 1-2 tablets by mouth every 4 (four) hours if needed. Active Blood Pressure kitIndications:P rimary hypertension To check the BP daily 1 kit Active cetirizine (ZyrTEC) 10 MG tablet Take 1 tablet by mouth Once per day. Active Nicotine Step 1 21 MG/24HR patch APPLY 1 PATCH TOPICALLY EVERY DAY REMOVE OLD PATCH BEFORE APPLYING NEW ONE. Active mirtazapine (Remeron) 30 MG tabletIndication s:Depressed mood Take 1 tablet (30 mg) by mouth at bedtime. 30 tablet 11 024 2024 Active meloxicam (Mobic) 15 MG tabletIndication s:Lumbar disc herniation Take 1 tablet (15 mg) by mouth Once per day. 30 tablet 11 024 2024 Active lisinopril 20 MG tabletIndication s:Primary hypertension Take 1 tablet (20 mg) by mouth Once per day. 90 tablet 3 Active albuterol (Ventolin HFA) 108 (90 Base) MCG/ACT inhalerIndicatio ns:Moderate persistent asthma, unspecified whether complicated INHALE 2 PUFFS INTO THE LUNGS EVERY 4 TO 6 HOURS NEEDED. 18 g 3 Active Breo Ellipta 100-25 MCG/ACT aerosol powderIndication s:Moderate persistent asthma, unspecified whether complicated Inhale 1 puff Once per day. 60 each 11 Active triamcinolone (Kenalog) 0.1 % ointmentIndicati ons:Dermatitis Apply topically 2 times daily. 453.6 g 2 Active baclofen (Lioresal) 20 MG tabletIndication s:Lumbar radiculopathy TAKE 1 TABLET BY MOUTH THREE TIMES A DAY 90 tablet 2 Active nicotine (Nicoderm, Step 3) 7 MG/24HR patch PLACE 1 PATCH ON THE SKIN 1 TIME EACH DAY AT THE SAME TIME. 28 patch Active lidocaine (Lidoderm) 5 % patchIndications :Lumbar disc herniation Apply 1 patch topically Once per day. Remove & discard patch within 12 hours or as directed by . 30 patch 3 Active Tirzepatide-Weig ht Management (Zepbound) 2.5 MG/0.5ML solution auto-injectorInd ications:Class 1 obesity due to excess calories with serious comorbidity and body mass index (BMI) of 31.0 to 31.9 in adult Inject 0.5 mL (2.5 mg) under the skin 1 (one) time per week. 2 mL 1 025 Active nicotine (Nicoderm, Step 1) 21 MG/24HR patchIndications :Smoking addiction PLACE 1 PATCH ON THE SKIN 1 TIME EACH DAY AT THE SAME TIME. 28 patch Active phentermine 8 MG tabletIndication s:Class 1 obesity due to excess calories with serious comorbidity and body mass index (BMI) of 30.0 to 30.9 in adult Take 1 tablet (8 mg) by mouth Once per day. 28 tablet Active topiramate (Topamax) 25 MG tabletIndication s:Lumbar disc herniation,Lumba r radiculopathy,Pr imary hypertension,Cla ss 1 obesity due to excess calories with serious comorbidity and body mass index (BMI) of 30.0 to 30.9 in adult Take 1 tablet (25 mg) by mouth every 12 (twelve) hours. 60 tablet 11 025 2025 Active Diclofenac Sodium 1 % gelIndications:L umbar disc herniation To apply to the affected area 3 times a day 100 g 025 Active Diclofenac Sodium 1 % gelIndications:L umbar disc herniation To apply to the affected area 3 times a day 100 g 025 2024 Discontinued(R eorder (will not trigger notification to Pharmacy)) nicotine (Nicoderm, Step 1) 21 MG/24HR patchIndications :Smoking addiction PLACE 1 PATCH ON THE SKIN 1 TIME EACH DAY AT THE SAME TIME. 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 Asthma 10/13/2017 Overview (05/29/2022): 10/03/17 - Maria Esther at [facility] ED c/o cp, sob, and nonproductive cough . O2 sat 93%. Treated with Albuterol x 3 and Prednisone in ED. CRX neg. Discharged with Albuterol and prednisone 20 mg BID x 5 days. 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 Yasmany Richards at [facility] for neurofibromatosis 01/30/17 NF clinic - potential new treatment for plexiform neurofibromas was discussed with pt (selumetinib). Dr. Richards will try to get off label approval for this therapy. Pt has F/U appt in 6 months and had an appt for ECHO on 05/16/17 to determine whether he can tolerate this treatment . 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 Waiting for non-FDA approved drug (Selumetinib) for get approved vs for the NF Binimetinib trial to open at [facility] (within several months). Recommend increasing Duloxetine for his ongoing depression and back pain. Will order MRI to look for tumors of R middle finger. F/U 3 mos. 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 S/p multiple debulking surgeries left facial NF most recent 05/18/16 at [facility] Encounters Date Type Department Care Team Description 01/24/2025 Orders Only [facility] External Provider, [facility] 01/20/2025 Patient Outreach [address] [address] Garett Wang Care Coordination ([facility] outreach for SDOH PT-1 and food needs-referral completed /) 01/19/2025 1:00 PM EDT Office Visit [facility] MED & PEDS [address] [place] [address] Winifred Fenton MD Lumbar disc herniation (Primary Dx); Lumbar radiculopathy; Primary hypertension; Class 1 obesity due to excess calories with serious comorbidity and body mass index (BMI) of 30.0 to 30.9 in adult; Lumbar disc herniation; Encounter for immunization 01/19/2025 Travel 01/12/2025 Refill [facility] MED & PEDS [address] [place] [address] Winifred Fenton MD Smoking addiction 01/06/2025 Patient Outreach [facility] MED[facility] [address] [place] [address] Winifred Fenton MD Care Coordination ([facility] outreach for SDOH PT-1 and food needs-referral completed /) 12/15/2024 Refill [facility]EDS [address] [place] [address] Winifred Fenton MD Smoking addiction 11/28/2024 Telephone [facility] [address] [place] [address] Winifred Fenton MD PA DENIED 11/25/2024 Telephone [facility] MED & PEDS [address] [place] [address] Winifred Fenton MD Prior Authorization 11/17/2024 Telephone [facility] MED & PEDS [address] [place] [address] Winifred Fenton MD No Show from Last 3 Months Immunizations Immunization Administration Dates Next Due Hep A, Adult 01/24/2024 Hep B, adult 01/19/2025,01/24/2024 Influenza injectable quadriv alent IIV4 with preservative [...] your housing situation today? I have shadi hoa 11/19/[address] you li [...] Sign Reading Time Taken Comments Blood Pressure 131/72 01/19/2025 1:12 PM EDT Pulse 94 01/19/2025 1:12 PM EDT Temperature 37 C (98.6 F) 01/19/2025 1:12 PM EDT Respiratory Rate 20 01/19/2025 1:12 PM EDT Oxygen Saturation 98% 10/13/2024 4:09 PM EDT Inhaled Oxygen Concentration - - Weight 91.6 kg (202 lb) 01/19/2025 1:12 PM EDT Height 167.6 cm (5' 6 ) 10/13/2024 4:09 PM EDT Body Mass Index 32.6 10/13/2024 4:09 PM EDT Plan of Treatment Upcoming Encounters Date Type Department Care Team (Late st Contact Info) Description 03/03/2025 2:45 PM EST Office Visit [facility] MED & PEDS [address] [place] [address] Winifred Fenton MD [address] [place] [address] Health Maintenance Due Date Last Done Comments HIV Screening 1990 Disability Screening 1990 Alcohol/Substance Use Screening 2004 Family Planning (PISQ) 02/04/2007 HPV Vaccines (1 - Male 3-dose series) 02/04/2007 Depression Monitoring 07/23/2024 01/24/2024, 024 SDOH Screening 11/18/2024 11/19/2023 COVID-19 Vaccine (3 - 2024- season) 2024 09/17/2020, 08/20/2020 Hepatitis B Vaccines (3 of 3 - 19+ 3-dose series) 03/16/2025 01/19/2025, 01/24/2024 DTaP/Tdap/Td Vaccines (2 - Td or Tdap) 10/16/2025 10/17/2015 Influenza Vaccine (#1) 2025 , 01/22/2019, 03/08/2018, Additional history exists Postponed from 12/29/2024 (Patient Refused) Tobacco Screening 01/19/2026 01/19/2025 Lipid Panel 11/29/2026 11/29/2021 Zoster Vaccines (1 of 2) 02/04/2042 RSV Patients and Patients Aged 60 years or older (1 - 1-dose 75+ series) 02/04/2067 Hepatitis C Screening Completed 11/29/2021 Hepatitis A Vaccines Aged Out 01/24/2024 No long er eligible based on patient's age to complete this topic Pneumococcal Vaccine: Pediatrics (0 to 5 Years) and At-Risk Patients (6 to 49) Years Completed 01/24/2024 HIB Vaccines Aged Out No longer eligi ble based on patient's age to complete this topic IPV Vaccines Aged Out No longer eligi ble based on patient's age to complete this topic Meningococcal B Vaccine Aged Out No l onger eligible based on patient's age to complete this topic Meningococcal Vaccine Aged Out No uslema axel eligible based on patient's age to complete this topic RSV under 20 months Aged Out No longe r eligible based on patient's age to complete this topic Rotavirus Vaccines Aged Out No longer eligible based on patient's age to complete this topic Procedures Procedure Name Priority Date/Time Associated Diagnosis Comments XR ANKLE 3+ VIEWS LEFT Routine 01/25/2025 12:25 AM EDT ZZZ HISTORICAL HEPATITIS C AB W/REFL TO HCV RNA, QN, PCR Routine 11/29/2021 9:28 AM EDT LIPID PANEL, STANDARD Routine 11/29/2021 9:28 AM EDT from Last 3 Months or Most Recently Relevant to Health Maintenance Results * XR Ankle 3+ Views Left (01/25/2025 12:25 AM EDT) Anatomical Region Laterality Modality Lower Extremities, Ankle Left Radiogr aphic Imaging 01/25/2025 12:2 5 AM EDT Narrative 01/25/2025 12:27 AM EDT [address] [address] XRay Report Signed Patient: Angus Castro MR#: [id number] 31 : 1990 Acct:[id number] Age/Sex: 34 / M ADM Date: 01/24/25 Loc: .ED Attending Dr: Ordering Physician: Lita Johnson MD Date of Service: 01/25/25 Procedure(s): XR ankle LT min 3V Accession Number(s): [id number] cc: Winifred Fenton MD; Lita Johnson MD Reason for Exam: ankle rolled CLINICAL HISTORY: ankle rolled Exam: AP, lateral, and mortise views of the left ankle. Comparison: None provided. Findings: Bony alignment is anatomic. No acute fracture. Ankle mortise is intact. [id number] lateral soft tissue swelling. Impression: Lateral soft tissue swelling without fracture. This document has been electronically signed by: Shaun Cazares MD on 01/25/2025 00:25:27 Dictated By: Shaun Cazares MD Signed By: <Electronically signed by Shaun Cazares MD in OV> 01/25/2525 DD/ TD/TT: 01/25/2524 Coal Crusher Operator: Procedure Note Donotuseinterpreter, Image - 01/25/[address] [address] XRay Report Signed Patient: Angus CastroMR#: [id number] 31 : 1990Acct:[id number] Age/Sex: 34 / MADM Date: 01/24/25 Loc: HO.ED Attending Dr: Ordering Physician: Lita Johnson MD Date of Service: 01/25/25 Procedure(s): XR ankle LT min 3V Accession Number(s): [id number] cc: Winifred Fenton MD; Lita Johnson MD Reason for Exam: ankle rolled CLINICAL HISTORY: ankle rolled Exam: AP, lateral, and mortise views of the left ankle. Comparison: None provided. Findings: Bony alignment is anatomic. No acute fracture. Ankle mortise is intact. Htpv-[id number] lateral soft tissue swelling. Impression: Lateral soft tissue swelling without fracture. This document has been electronically signed by: Shaun Cazares MD on 01/25/2025 00:25:27 Dictated By: Shaun Cazares MD Signed By: <Electronically signed by Shaun Cazares MD in OV> 01/25/256 DD/ TD/TT: 01/25/2524 Coal Crusher Operator: [facility] External Provider IMG XR PROCEDURES Final Result * HEPATITIS C AB W/REFL TO HCV RNA, QN, PCR (11/29/2021 9:28 AM EDT) HEPATITIS C ANTIBODY NON-REACT KIM NON-REACT KIM [facility] INDEX 0.10 <1.00 [facility] Comment: HCV antibody was non-reactive. There is no laboratory evidence of HCV infection. In most cases, no further action is required. However, if recent HCV exposure is suspected, a test for HCV RNA (test code 36051) is suggested. For additional information please refer to http://education.[employer].Lumetrics/faq/ZBI71w0 (This link is being provided for informational/ educational purposes only.) 11/29/2021 9:28 AM EDT Winifred Fenton MD HISTORICAL/NON ORDERABLE LA BS Final Result [facility] [address] * (ABNORMAL) LIPID PANEL, STANDARD (11/29/2021 9:28 AM EDT) Chol/HDLC Ratio 3.6 <5.0 (calc) [facility] Cholesterol, Total 129 <200 mg/dL [facility] HDL Cholesterol 36(L) > OR = 40 mg/dL [facility] LDL Cholesterol 72 mg/dL (calc) [facility] Comment: Reference range: <100 Desirable range <100 mg/dL for primary prevention; <70 mg/dL for patients with CHD or diabetic patients with > or = 2 CHD risk factors. LDL-C is now calculated using the Pawel-Derian calculation, which is a validated novel method providing better accuracy than the Friedewald equation in the estimation of LDL-C. Pawel SS et al. JHON. 2013;310(19): 6206-8508 (http://education.[employer] [place] [employer] [place].com/faq/RAE486) Non-HDL Cholesterol 93 <130 mg/dL (calc) [facility] Comment: For patients with diabetes plus 1 major ASCVD risk factor, treating to a non-HDL-C goal of <100 mg/dL (LDL-C of <70 mg/dL) is considered a therapeutic option. Triglycerides 127 <150 mg/dL [facility] 11/29/2021 9:28 AM EDT Winifred Fenton MD LAB BLOOD ORDERABLES Final Result Performing Organization Address [facility]/State/ZIP Co de Phone Number [facility] [address] from Last 3 Months or Most Recently Relevant to Health Maintenance Insurance [employer] C3 Care Teams College Director Relationship Specialty Start Date End Date Winifred Fenton MD [address] [place] [address] PCP - General Internal Medicine 09/13/17 Giovanni Randhawa Residential Child Care CounselorTransport Analyst 07/23/23
--- OUTSIDE RECORDS SUMMARY | 2025-01-25 00:59 | XMS_ITS | Encounter Summary ---
Author Organization [facility] Address [address] [place] [address] [place] [address] Phone Care Team Providers Care Nickel Plant Operator Name Role Phone Winifred Fenton MD Primary Care Pr ovider Yasmany Richards MD Unavailable [phone] Anthony Oglesby MD Unavailable Encounter Details Date Type Department Care Team (Late st Contact Info) Description 07/27/2023 Procedure Pass [facility] [address] [place] [id number] Social History Tobacco Use Types Packs/Day Years [...] Description 02/12/2025 9:00 AM EDT Office Visit [facility] Plastic Surgery [address] [facility] 2nd [place] [address] Herminia Mclain MD [address] [place] [address] [email or web address] 03/17/2025 2:30 PM EST Office Visit [facility] Center for Neuro Oncology [address] [facility], 9th Floor, [address] [place] [address] Anthony Oglesby MD [address] [address] [email or web address] 04/01/2025 1:20 PM EST Office Visit [facility] 243 [facility] 1[address] [place] [address] Boris Hansen MD 243 [place] [address] [email or web address] 04/01/2025 1:40 PM EST Appointment [facility] [address] 1st [place] [address] documented as of this encounter Visit Diagnoses Not on filedocumented in this encounter Care Teams Nickel Plant Operator Relationship Specialty Start Date End Date Winifred Fenton MD 230 [facility] 1 [place] [address] PCP - General Internal Medicine 10/09/17 Yasmany Richards MD 55 [place] [address] [email or web address] Primary Oncologist Neurology 07/10/1811/19 Anthony Oglesby MD 55 [facility] [address] 9 [place] [address] [email or web address] 11/20/24 documented as of this encounter Additional Source Comments The information contained in this document represents components of the legal health record. It is not the complete legal health record.[facility]
--- OUTSIDE RECORDS SUMMARY | 2025-01-25 00:59 | XMS_ITS | Encounter Summary ---
Author Organization [facility] Address [address] [place] [address] [place] [address] Phone Care Team Providers Care Chicken Cutter Name Role Phone Ania Wilburn MD Primary Care P rovider Nadege Rutledge PA-C Primary Care Provider U Winifred Parish MD Primary Care Pr ovider Yasmany Richards MD Unavailable [phone] Anthony Oglesby MD Unavailable Encounter Details Date Type Department Care Team (Late st Contact Info) Description 05/18/2016 Procedure Pass [facility] Periop [address] [place] [address] Social History Tobacco Use Types Packs/Day Years [...] Assessment Author No 11/23/2015 9:40 AM Lamine Kowlaski MD * Patient has serious difficulty doing [...] 02/12/2025 9:00 AM EDT Office Visit [facility] Plastic Surgery 45 [facility] 2nd [place] [address] Herminia Mclain MD 75 [place] [address] [email or web address] 03/17/2025 2:30 PM EST Office Visit [facility] Center for Neuro Oncology 32 [facility], 9th Floor, [address] [place] [address] Anthony Oglesby MD 55 [facility] 9 [place] [address] [email or web address] 04/01/2025 1:20 PM EST Office Visit [facility] [address] [address] Boris Hansen MD 243 [place] [address] [email or web address] 04/01/2025 1:40 PM EST Appointment [facility] [address] [address] documented as of this encounter Visit Diagnoses Not on filedocumented in this encounter Additional Health Concerns Infection Onset Date Last Indicated Resolved Time MRSA 04/09/2021 04/09/2021 04/09/2023 1:21 AM EST CoV-Risk 09/22/2021 09/22/2021 10/03/2021 1:24 AM EDT documented as of this encounter Care Teams Chicken Cutter Relationship Specialty Start Date End Date Ania Wilburn MD [address] [place] [address] PCP - General Internal Medicine 07/27/15 12/14/16 Nadege Rutledge PA-C PCP - General Internal Medicine 12/15/16 10/08/17 Winifred Fenton MD 230 [facility] 1 [place] [address] PCP - General Internal Medicine 10/09/17 Yasmany Richards MD 55 [place] [address] [email or web address] Primary Oncologist Neurology 07/10/1811/19 Anthony Oglesby MD 55 [facility] 9 [place] [address] [email or web address] 11/20/24 documented as of this encounter Additional Source Comments The information contained in this document represents components of the legal health record. It is not the complete legal health record.[facility]
--- OUTSIDE RECORDS SUMMARY | 2025-01-25 00:59 | XMS_ITS | Encounter Summary ---
Author Organization [employer] Address [address] [facility] 7t [place] [address] Care Team Providers Care Agent Producer Name Role Phone Winifred Fenton MD Primary Care Provider [phone] Encounter Details Date Type Department Care Team (Latest Contact Info) Description 02/19/2023 Orders Only [facility] MED & PEDS [address] [place], [place] [phone] Winifred Fenton MD [address] [place] [address] Lumbar radiculopathy (Primary Dx); Type 1 neurofibromatosis [...] Description 03/03/2025 2:45 PM EST Office Visit [facility] MED & PEDS [address] [place], [place] [phone] Winifred Fenton MD [address] [place] [address] documented as of this encounter Visit Diagnoses Diagnosis Lumbar radiculopathy- Primary Thoracic or lumbosacral neuritis or radiculitis, unspecified Type 1 neurofibromatosis (CMS/HCC) (HCC) documented in this encounter Additional Health Concerns Assessment Noted Time PHQ-9 Depression Total Score: 7 05/29/19 23 4:02 PM EST documented as of this encounter Care Teams Agent Producer Relationship Specialty Start Date End Date Winifred Fenton MD [address] [place] [address] PCP - General Internal Medicine 09/13/17 Giovanni Randhawa Edge Stainer MachinePaste Maker 07/23/23 documented as of this encounter
--- OUTSIDE RECORDS SUMMARY | 2025-01-25 00:59 | XMS_ITS | Encounter Summary ---
Author Organization [facility] Address [address] [place] [address] Phone Care Team Providers Care Or Assistant Name Role Phone Winifred Fenton MD Primary Care Pr ovider Yasmany Richards MD Unavailable [phone] Anthony Oglesby MD Unavailable Encounter Details Date Type Department Care Team (Late st Contact Info) Description 06/14/2022 Procedure Pass [facility], [address] [address] Social History Tobacco Use Types Packs/Day Years [...] Visit [facility] Plastic Surgery [address] [address] Herminia Mclain MD 75 [place] [address] [email or web address] 03/17/2025 2:30 PM EST Office Visit [facility] Neuro Oncology [address], 9th Floor, [address] [place] [address] Anthony Oglesby MD [address] [address] [email or web address] 04/01/2025 1:20 PM EST Office Visit [facility] [address] [address] Boris Hansen MD 243 [place] [address] [place]@[email or web address] 04/01/2025 1:40 PM EST Appointment [facility] 243 [facility] 1st [place] [address] documented as of this encounter Visit Diagnoses Not on filedocumented in this encounter Additional Health Concerns Infection Onset Date Last Indicated Resolved Time MRSA 04/09/2021 04/09/2021 04/09/2023 1:21 AM EST documented as of this encounter Care Teams Or Assistant Relationship Specialty Start Date End Date Winifred Fenton MD [address] [address] PCP - General Internal Medicine 10/09/17 Yasmany Richards MD [address] [place] [address] [email or web address] Primary Oncologist Neurology 07/10/1811/19 Anthony Oglesby MD 55 [facility] YA 9 [place] [address] [email or web address] Neurology 11/20/24 documented as of this encounter Additional Source Comments The information contained in this document represents components of the legal health record. It is not the complete legal health record.[facility]
--- OUTSIDE RECORDS SUMMARY | 2025-01-25 00:59 | XMS_ITS | Encounter Summary ---
Author Organization [facility] Address [address] [place] [address] [place] [address] Phone Care Team Providers Care Pile Header Name Role Phone Winifred Fenton MD Primary Care Pr ovider Yasmany Richards MD Unavailable [phone] Anthony Oglesby MD Unavailable Encounter Details Date Type Department Care Team (Late st Contact Info) Description 08/10/2020 Procedure Pass [facility] Cardiac US [address] [place] [address] Social History Tobacco Use Types Packs/Day Years [...] [facility] Plastic Surgery 45 [facility] 2nd [place] [address] Herminia Mclain MD 75 [place] [address] [email or web address] [facility] 03/17/2025 2:30 PM EST Office Visit [facility] Center for Neuro Oncology 32 [facility], 9th Floor, [address] [place] [address] Anthony Oglesby MD [address] [address] OLIVERUHarry@[email or web address] 04/01/2025 1:20 PM EST Office Visit [facility] 243 [facility] 1st [place] [address] Boris Hansen MD 243 [place] [address] [email or web address] 04/01/2025 1:40 PM EST Appointment [facility] 243 [facility] 1st [place] [address] documented as of this encounter Visit Diagnoses Not on filedocumented in this encounter Additional Health Concerns Infection Onset Date Last Indicated Resolved Time MRSA 04/09/2021 04/09/2021 04/09/2023 1:21 AM EST CoV-Risk 09/22/2021 09/22/2021 10/03/2021 1:24 AM EDT documented as of this encounter Care Teams Pile Header Relationship Specialty Start Date End Date Winifred Fenton MD [address] [address] PCP - General Internal Medicine 10/09/17 Yasmany Richards MD [address] [place] [address] [email or web address] Primary Oncologist Neurology 07/10/1811/19 Anthony Oglesby MD 55 [facility] YA 9 [place] [address] MAK@[email or web address] Neurology 11/20/24 documented as of this encounter Additional Source Comments The information contained in this document represents components of the legal health record. It is not the complete legal health record.[facility]
--- OUTSIDE RECORDS SUMMARY | 2025-01-25 00:59 | XMS_ITS | Encounter Summary ---
Author Organization [employer] Address 75 [facility] 7t [place] [address] Care Team Providers Care Rn Medical Inpatient Services Name Role Phone Winifred Fenton MD Primary Care Provider [phone] Encounter Details Date Type Department Care Team ([facility] st Contact Info) Description 02/22/2024 Orders Only [facility] CH[facility] MED & PEDS 505 [place], [place] [phone] Winifred Fenton MD 505 [place] [address] Depressed mood (Primary Dx) Social History Tobacco [...] Upcoming Encounters Date Type Department Care Team ([facility] st Contact Info) Description 03/03/2025 2:45 PM EST Office Visit [facility] MED [facility] PEDS 505 [place] [address] Winifred Fenton MD 505 [place] [address] documented as of this encounter Visit Diagnoses Diagnosis Depressed mood- Primary documented in this encounter Additional Health Concerns Assessment Noted Time PHQ-9 Depression Total Score: 17 024 2:29 PM EDT documented as of this encounter Care Teams Rn Medical Inpatient Services Relationship Specialty Start Date End Date Winifred Fenton MD 505 [place] [address] PCP - General Internal Medicine 09/13/17 Giovanni Randhawa Pbx Wire ChiefDeputy Sheriff K9 Handler 07/23/23 documented as of this encounter
--- OUTSIDE RECORDS SUMMARY | 2025-01-25 00:59 | XMS_ITS | Encounter Summary ---
Author Organization [facility] Address [address] [place] [address] Phone Care Team Providers Care Blade Balancer Name Role Phone Winifred Fenton MD Primary Care Pr ovider Yasmany Richards MD Unavailable [phone] Anthony Oglesby MD Unavailable Encounter Details Date Type Department Care Team (Late st Contact Info) Description 03/08/2020 Telephone [facility] [address] 1st [place] [address] Damon [email or web address] Social History Tobacco Use Types Packs/Day Years [...] Description 02/12/2025 9:00 AM EDT Office Visit [facility] Plastic Surgery [address] [address] Herminia Mclain MD 75 [place] [address] [email or web address] 03/17/2025 2:30 PM EST Office Visit [facility] Center for Neuro Oncology [address] [facility], 9th Floor, [address] [place] [address] Anthony Oglesby MD [address] [facility] 9 [place] [address] MAK@[email or web address] 04/01/2025 1:20 PM EST Office Visit [facility] [address] [address] Boris Hansen MD 243 [place] [address] [email or web address] 04/01/2025 1:40 PM EST Appointment [facility] [address] [address] documented as of this encounter Visit Diagnoses Not on filedocumented in this encounter Additional Health Concerns Infection Onset Date Last Indicated Resolved Time MRSA 04/09/2021 04/09/2021 04/09/2023 1:21 AM EST CoV-Risk 09/22/2021 09/22/2021 10/03/2021 1:24 AM EDT documented as of this encounter Care Teams Blade Balancer Relationship Specialty Start Date End Date Winifred Fenton MD [address] [address] PCP - General Internal Medicine 10/09/17 Yasmany Richards MD 55 [place] [address] STARR@[email or web address] Primary Oncologist Neurology 07/10/1811/19 Anthony Oglesby MD 55 [facility] YA 9 [place] [address] [email or web address] Neurology 11/20/24 documented as of this encounter Additional Source Comments The information contained in this document represents components of the legal health record. It is not the complete legal health record.[facility]
--- OUTSIDE RECORDS SUMMARY | 2025-01-25 00:59 | XMS_ITS | Encounter Summary ---
Author Organization [employer] Address [address] [place] [address] Care Team Providers Care Monument Setter Helper Name Role Phone Winifred Fenton MD Primary Care Provider [phone] Reason for Referral * Consultation (Routine) - Closed Specialty Diagnoses / Procedures Referred By Contac t Referred To Contact Physical Therapy Diagnoses Neurofibromatosis, type 1 (CMS/HCC) (HCC) Lumbar radiculopathy Winifred Fenton MD 505 [place] [address] Phone: tel: fax: [facility] Physical Therapy [address] [place] [address] Phone: tel: fax: Referral ID Status Reason Start Date Expiration Date V isits Requested Visits Authorized [id number] Closed Specialty Services Required 03/12/2024 03/12/2025 1 1 Encounter Details Date Type Department Care Team (Late st Contact Info) Description 03/12/2024 Orders Only [facility] CHC MED & PEDS [address] [place], [place] [phone] Winifred Fenton MD 505 [place] [address] Neurofibromatosis, type 1 (CMS/HCC) (Primary Dx); Lumbar [...] Description 03/03/2025 2:45 PM EST Office Visit [facility] CHC MED & PEDS [address] [place], [place] [phone] Winifred Fenton MD 505 [place] [address] Scheduled Referrals Name Type Priority Associated Diagnoses Orde r Schedule Referral to Physical Therapy Outpatient Referral Routine Neurofibromatosis, type 1 (CMS/HCC) Lumbar radiculopathy Expected: 03/12/2024 (Approximate), Expires: 03/12/2025 documented as of this encounter Visit Diagnoses Diagnosis Neurofibromatosis, type 1 (CMS/HCC) (HCC)- Primary Neurofibromatosis, Type 1 (von Recklinghausen's disease) Lumbar radiculopathy Thoracic or lumbosacral neuritis or radiculitis, unspecified documented in this encounter Additional Health Concerns Assessment Noted Time PHQ-9 Depression Total Score: 17 024 2:29 PM EDT documented as of this encounter Care Teams Monument Setter Helper Relationship Specialty Start Date End Date Winifred Fenton MD [address] [place] [address] PCP - General Internal Medicine 09/13/17 Giovanni Randhawa Teacher PreschoolCommunication Center Coordinator 07/23/23 documented as of this encounter
--- OUTSIDE RECORDS SUMMARY | 2025-01-25 00:59 | XMS_ITS | Encounter Summary ---
Author Organization [facility] Address [address] [place] [address] [place] [address] Phone Care Team Providers Care Hand Roller Name Role Phone Winifred Fenton MD Primary Care Pr ovider Yasmany Richards MD Unavailable [phone] Anthony Oglesby MD Unavailable Encounter Details Date Type Department Care Team (Late st Contact Info) Description 03/13/2022 Procedure Pass [facility] PERIOPER[facility]IVE DEPT [address] [place] [phone] Social History Tobacco Use Types Packs/Day Years [...] Description 02/12/2025 9:00 AM EDT Office Visit [facility] Plastic Surgery 45 [facility] 2nd [place] [address] Herminia Mclain MD 75 [place] [address] [email or web address] 03/17/2025 2:30 PM EST Office Visit [facility] Center for Neuro Oncology 32 [facility], 9th Floor, [address] [place] [address] Anthony Oglesby MD 55 [facility] 9 [place] [address] OLIVERUHarry@[email or web address] 04/01/2025 1:20 PM EST Office Visit [facility] 243 [facility] 1st [place] [address] Boris Hansen MD 243 [place] [address] [place]@[email or web address] 04/01/2025 1:40 PM EST Appointment [facility] 243 [facility] 1st [place] [address] documented as of this encounter Visit Diagnoses Not on filedocumented in this encounter Additional Health Concerns Infection Onset Date Last Indicated Resolved Time MRSA 04/09/2021 04/09/2021 04/09/2023 1:21 AM EST documented as of this encounter Care Teams Hand Roller Relationship Specialty Start Date End Date Winifred Fenton MD [address] [place] [address] PCP - General Internal Medicine 10/09/17 Yasmany Richards MD [address] [place] [address] STARR@[email or web address] Primary Oncologist Neurology 07/10/1811/19 Anthony Oglesby MD 55 [facility] YA 9 [place] [address] MAK@[email or web address] Neurology 11/20/24 documented as of this encounter Additional Source Comments The information contained in this document represents components of the legal health record. It is not the complete legal health record.[facility]
--- OUTSIDE RECORDS SUMMARY | 2025-01-25 00:59 | XMS_ITS | Encounter Summary ---
Author Organization [employer] Address 75 [facility] 7t [place] [address] Care Team Providers Care Print Machine Operator Name Role Phone Winifred Fenton MD Primary Care Provider [phone] Reason for Visit * Reason Onset Date Comments FYI 08/24/2023 Encounter Details Date Type Department Care Team ([facility] Contact Info) Description 08/24/2023 Telephone [facility] MED & PEDS 505 [place] [address] Winifred eFnton MD 505 [place] [address] FYI Social History Tobacco Use Types Packs/Day [...] - 08/24/2023 11:37 AM EDT TC from [facility] calling to inform Pt will be getting discharge from home physical therapy today 08/24/23. documented in this encounter Plan of Treatment Upcoming Encounters Date Type Department Care Team (Late st Contact Info) Description 03/03/2025 2:45 PM EST Office Visit [facility] CHC MED & PEDS 505 [place] [address] Winifred Fenton MD 505 [place] [address] documented as of this encounter Visit Diagnoses Not on filedocumented in this encounter Additional Health Concerns Assessment Noted Time PHQ-9 Depression Total Score: 7 05/29/19 23 4:02 PM EST documented as of this encounter Care Teams Print Machine Operator Relationship Specialty Start Date End Date Winifred Fenton MD 505 [place] [address] PCP - General Internal Medicine 09/13/17 Giovanni Randhawa Estate PlannerHorizontal Resaw Operator 07/23/23 documented as of this encounter
--- OUTSIDE RECORDS SUMMARY | 2025-01-25 00:59 | XMS_ITS | Encounter Summary ---
Author Organization [facility] Address [address] [place] [address] [place] [address] Phone Care Team Providers Care University Registrar Name Role Phone Winifred Fenton MD Primary Care Pr ovider Yasmany Richards MD Unavailable [phone] Anthony Oglesby MD Unavailable Encounter Details Date Type Department Care Team (Late st Contact Info) Description 06/16/2020 Procedure Pass [facility] Cardiac US [address] [place] [address] Social History Tobacco Use Types Packs/Day Years [...] Description 02/12/2025 9:00 AM EDT Office Visit [facility] Plastic Surgery 45 [facility] 2nd [place] [address] Herminia Mclain MD 75 [place] [address] [email or web address] 03/17/2025 2:30 PM EST Office Visit [facility] Center for Neuro Oncology 32 [facility], 9th Floor, [address] [place] [address] Anthony Oglesby MD [address] [address] OLIVERUHarry@[facility] 04/01/2025 1:20 PM EST Office Visit [facility] 243 [facility] 1st [place] [address] Boris Hansen MD 243 [place] [address] [place]@[email or web address] 04/01/2025 1:40 PM EST Appointment [facility] 243 [facility] 1st [place] [address] documented as of this encounter Visit Diagnoses Not on filedocumented in this encounter Additional Health Concerns Infection Onset Date Last Indicated Resolved Time MRSA 04/09/2021 04/09/2021 04/09/2023 1:21 AM EST CoV-Risk 09/22/2021 09/22/2021 10/03/2021 1:24 AM EDT documented as of this encounter Care Teams University Registrar Relationship Specialty Start Date End Date Winifred Fenton MD [address] [address] PCP - General Internal Medicine 10/09/17 Yasmany Richards MD [address] [place] [address] STARR@[email or web address] Primary Oncologist Neurology 07/10/1811/19 Anthony Oglesby MD 55 [facility] YA 9 [place] [address] MAK@[email or web address] Neurology 11/20/24 documented as of this encounter Additional Source Comments The information contained in this document represents components of the legal health record. It is not the complete legal health record.[facility]
--- OUTSIDE RECORDS SUMMARY | 2025-01-25 00:59 | XMS_ITS | Encounter Summary ---
Author Organization [facility] Address [address] [place] [address] [place] [address] Phone Care Team Providers Care Billing Supervisor Name Role Phone Winifred Fenton MD Primary Care Pr ovider Yasmany Richards MD Unavailable [phone] Anthony Oglesby MD Unavailable Encounter Details Date Type Department Care Team (Late st Contact Info) Description 08/16/2022 Procedure Pass [facility] [address] [place] [phone] Social History Tobacco Use Types Packs/Day Years [...] 02/12/2025 9:00 AM EDT Office Visit [facility] Plastic Surgery 45 [facility] 2nd [place] [address] Herminia Mclain MD 75 [place] [address] [email or web address] 03/17/2025 2:30 PM EST Office Visit [facility] Center for Neuro Oncology 32 [facility], 9th Floor, [address] [place] [address] Anthony Oglesby MD 55 [facility] 9 [place] [address] OLIVERUHarry@[facility] 04/01/2025 1:20 PM EST Office Visit [facility] 243 [facility] 1st [place] [address] Boris Hansen MD 243 [place] [address] [place]@[facility] 04/01/2025 1:40 PM EST Appointment [facility] 243 [facility] 1st [place] [address] documented as of this encounter Visit Diagnoses Not on filedocumented in this encounter Additional Health Concerns Infection Onset Date Last Indicated Resolved Time MRSA 04/09/2021 04/09/2021 04/09/2023 1:21 AM EST documented as of this encounter Care Teams Billing Supervisor Relationship Specialty Start Date End Date Winifred Fenton MD [address] [place] [address] PCP - General Internal Medicine 10/09/17 Yasmany Richards MD [address] [place] [address] STARR@[email or web address] Primary Oncologist Neurology 07/10/1811/19 Anthony Oglesby MD 55 [facility] YA 9 [place] [address] MAK@[email or web address] Neurology 11/20/24 documented as of this encounter Additional Source Comments The information contained in this document represents components of the legal health record. It is not the complete legal health record.[facility]
--- OUTSIDE RECORDS SUMMARY | 2025-01-25 00:59 | XMS_ITS | Encounter Summary ---
Author Organization [facility] Address [address] [place] [address] [place] [address] Phone Care Team Providers Care Operations Specialists Name Role Phone Winifred Fenton MD Primary Care Pr ovider Yasmany Richards MD Unavailable [phone] Anthony Oglesby MD Unavailable Encounter Details Date Type Department Care Team (Late st Contact Info) Description 02/21/2022 Procedure Pass [facility] Cardiac US [address] [place] [address] Social History Tobacco Use Types Packs/Day Years [...] Description 02/12/2025 9:00 AM EDT Office Visit [facility] Plastic Surgery 45 [facility] 2nd [place] [address] Herminia Mclain MD 75 [place] [address] [email or web address] 03/17/2025 2:30 PM EST [facility] Center for Neuro Oncology 32 [facility], 9th Floor, [address] [place] [address] Anthony Oglesby MD [address] [address] OLIVERUHarry@[facility] 04/01/2025 1:20 PM EST Office Visit [facility] 243 [facility] 1st [place] [address] Boris Hansen MD 243 [place] [address] [place]@[facility] 04/01/2025 1:40 PM EST Appointment [facility] [address] 1st [place] [address] documented as of this encounter Visit Diagnoses Not on filedocumented in this encounter Additional Health Concerns Infection Onset Date Last Indicated Resolved Time MRSA 04/09/2021 04/09/2021 04/09/2023 1:21 AM EST documented as of this encounter Care Teams Operations Specialists Relationship Specialty Start Date End Date Winifred Fenton MD [address] [address] PCP - General Internal Medicine 10/09/17 Yasmany Richards MD [address] [place] [address] STARR@[email or web address] Primary Oncologist Neurology 07/10/1811/19 Anthony Oglesby MD 55 [facility] YA 9 [place] [address] OLIVERUHarry@[email or web address] Neurology 11/20/24 documented as of this encounter Additional Source Comments The information contained in this document represents components of the legal health record. It is not the complete legal health record.[facility]
--- OUTSIDE RECORDS SUMMARY | 2025-01-25 00:59 | XMS_ITS | Encounter Summary ---
Author Organization [facility] Address [address] [place] [address] Phone Care Team Providers Care Alteration Worker Name Role Phone Winifred Fenton MD Primary Care Pr ovider Yasmany Richards MD Unavailable [phone] Anthony Oglesby MD Unavailable Encounter Details Date Type Department Care Team (Late st Contact Info) Description 01/25/2023 Procedure Pass [facility] - MRI, [facility] [address] [place] [address] Social History Tobacco Use Types Packs/Day Years [...] Description 02/12/2025 9:00 AM EDT Office Visit [facility] Plastic Surgery 45 [facility] 2nd [place] [address] Herminia Mclain MD 75 [place] [address] [email or web address] 03/17/2025 2:30 PM EST Office Visit [facility] 32 [facility], 9th Floor, [address] [place] [address] Anthony Oglesby MD 55 [facility] 9 [place] [address] MAK@[email or web address] 04/01/2025 1:20 PM EST Office Visit [address] [address] Boris Hansen MD [address] [place] [address] [email or web address] 04/01/2025 1:40 PM EST Appointment [address] [address] documented as of this encounter Visit Diagnoses Not on filedocumented in this encounter Additional Health Concerns Infection Onset Date Last Indicated Resolved Time MRSA 04/09/2021 04/09/2021 04/09/2023 1:21 AM EST documented as of this encounter Care Teams Alteration Worker Relationship Specialty Start Date End Date Winifred Fenton MD [address] [place] [address] PCP - General Internal Medicine 10/09/17 Yasmany Richards MD [address] [place] [address] [email or web address] Primary Oncologist Neurology 07/10/1811/19 Anthony Oglesby MD 55 [facility] 9 [place] [address] MAK@[email or web address] Neurology 11/20/24 documented as of this encounter Additional Source Comments The information contained in this document represents components of the legal health record. It is not the complete legal health record.[facility]
--- OUTSIDE RECORDS SUMMARY | 2025-01-25 00:59 | XMS_ITS | Encounter Summary ---
Author Organization [facility] Address [address] [facility] [address] [place] [address] Phone Care Team Providers Care Quarry Plant Crusher Operator Name Role Phone Winifred Fenton MD Primary Care Pr ovider Yasmany Richards MD Unavailable [phone] Anthony Oglesby MD Unavailable Encounter Details Date Type Department Care Team (Late st Contact Info) Description 07/27/2023 Procedure Pass [facility] CT, Francesco 2 [address] [facility], 2nd Floor, [address] [place] [address] Social History Tobacco Use Types Packs/Day Years [...] Description 02/12/2025 9:00 AM EDT Office Visit [facility] Plastic Surgery 45 [facility] [address] [place] [address] Herminia Mclain MD 75 [place] [address] [email or web address] 03/17/2025 2:30 PM EST Office Visit [facility] 32 [facility], 9th Floor, [address] [place] [address] Anthony Oglesby MD 55 [facility] 9 [place] [address] [email or web address] 04/01/2025 1:20 PM EST Office Visit [facility] [address] [facility] [address] [place] [address] Boris Hansen MD 243 [place] [address] [place]@[email or web address] 04/01/2025 1:40 PM EST Appointment [facility] [address] 1st [place] [address] documented as of this encounter Visit Diagnoses Not on filedocumented in this encounter Care Teams Quarry Plant Crusher Operator Relationship Specialty Start Date End Date Winifred Fenton MD [address] [address] PCP - General Internal Medicine 10/09/17 Yasmany Richards MD 55 [place] [address] [email or web address] Primary Oncologist Neurology 07/10/1811/19 Anthony Oglesby MD 55 [facility] YA 9 [place] [address] [email or web address] Neurology 11/20/24 documented as of this encounter Additional Source Comments The information contained in this document represents components of the legal health record. It is not the complete legal health record.[facility]
--- OUTSIDE RECORDS SUMMARY | 2025-01-25 00:59 | XMS_ITS | Encounter Summary ---
Author Organization [employer] Address [address] [facility] 7t [place] [address] Care Team Providers Care Mouthpiece Maker Name Role Phone Winifred Fenton MD Primary Care Provider [phone] Encounter Details Date Type Department Care Team ([facility] st Contact Info) Description 10/11/2023 Orders Only [facility] 230 [place], [place] [id number] Provider, MD Chantal Social History Tobacco Use [...] Description 03/03/2025 2:45 PM EST Office Visit [facility] [address] [place] [address] Winifred Fenton MD 505 [place] [address] documented as of this encounter Procedures Procedure [...] documented as of this encounter Care Teams Mouthpiece Maker Relationship Specialty Start Date End Date Winifred Fenton MD 505 [place] [address] PCP - General Internal Medicine 09/13/17 Giovanni Randhawa Blueberry GrowerGimp Buttonhole Machine Operator 07/23/23 documented as of this encounter
--- OUTSIDE RECORDS SUMMARY | 2025-01-25 00:59 | XMS_ITS | Encounter Summary ---
Author Organization [employer] Address 75 [facility] 7t [place] [address] Care Team Providers Care Email Production Specialist Name Role Phone Winifred Fenton MD Primary Care Provider [phone] Encounter Details Date Type Department Care Team ([facility] st Contact Info) Description 01/24/2025 Orders Only [facility] External Provider, [facility] Social History Tobacco Use Types Packs/Day Years [...] Description 03/03/2025 2:45 PM EST Office Visit [facility] 505 [place] [address] Winifred Fenton MD 505 [place] [address] documented as of this encounter Procedures Procedure Name Priority Date/Time Associated Diagnosis Comments XR ANKLE 3+ VIEWS LEFT Routine 01/25/2025 12:25 AM EDT documented in this encounter Results * XR Ankle 3+ Views Left (01/25/2025 12:25 AM EDT) Anatomical Region Laterality Modality Lower Extremities, Ankle Left Radiogr aphic Imaging 01/25/2025 12:2 5 AM EDT Narrative 01/25/2025 12:27 AM EDT [address] [address] XRay Report Signed Patient: Angus Castro MR#: [id number] [birth year] : 1990 Acct:[id number] Age/Sex: 34 / M ADM Date: 01/24/25 Loc: .ED Attending Dr: Ordering Physician: Lita Johnson MD Date of Service: 01/25/25 Procedure(s): XR ankle LT min 3V Accession Number(s): [id number] cc: Winifred Fenton MD; Lita Johnson MD Reason for Exam: ankle rolled CLINICAL HISTORY: ankle rolled Exam: AP, lateral, and mortise views of the left ankle. Comparison: None provided. Findings: Bony alignment is anatomic. No acute fracture. Ankle mortise is intact. Uvik-tv-sgwrcbuk lateral soft tissue swelling. Impression: Lateral soft tissue swelling without fracture. This document has been electronically signed by: Shaun Cazares MD on 01/25/2025 00:25:27 Dictated By: Shaun Cazares MD Signed By: <Electronically signed by Shuan Cazares MD in [place]> 01/25/2525 DD/ TD/TT: 01/25/2524 Social Worker Masters: Procedure Note Donotuseinterpreter, Image - 01/25/2025 [place] [address] XRay Report Signed Patient: Hardy Castro#: [id number] 33 : 1990Acct:[id number] Age/Sex: 34 / MADM Date: 01/24/25 Loc: HO.ED Attending Dr: Ordering Physician: Lita Johnson MD Date of Service: 01/25/25 Procedure(s): XR ankle LT min 3V Accession Number(s): [id number] cc: Winifred Fenton MD; Lita Johnson MD Reason for Exam: ankle rolled CLINICAL HISTORY: ankle rolled Exam: AP, lateral, and mortise views of the left ankle. Comparison: None provided. Findings: Bony alignment is anatomic. No acute fracture. Ankle mortise is intact. Iuwr-tn-hzzpidqo lateral soft tissue swelling. Impression: Lateral soft tissue swelling without fracture. This document has been electronically signed by: Shaun Cazares MD on 01/25/2025 00:25:27 Dictated By: Shaun Cazares MD Signed By: <Electronically signed by Shaun Cazares MD in [place]> 01/25/2525 DD/ TD/TT: 01/25/2524 Social Worker Masters: [facility] External Provider IMG XR PROCEDURES Final Result documented in this encounter Visit Diagnoses Not on filedocumented in this encounter Additional Health Concerns Assessment Noted Time PHQ-9 Depression Total Score: 17 024 2:29 PM EDT documented as of this encounter Care Teams Email Production Specialist Relationship Specialty Start Date End Date Winifred Fenton MD [address] [place] [address] PCP - General Internal Medicine 09/13/17 Giovanni Randhawa Regional Dedicated Truck DriverCleaning Technician 07/23/23 documented as of this encounter
--- OUTSIDE RECORDS SUMMARY | 2025-01-25 00:59 | XMS_ITS | Encounter Summary ---
Author Organization [facility] Address [address] [place] [address] Phone Care Team Providers Care Feed Mill Supervisor Name Role Phone Winifred Fenton MD Primary Care Pr ovider Yasmany Richards MD Unavailable [phone] Anthony Oglesby MD Unavailable Reason for Visit * Reason Comments Med Change Request Encounter Details Date Type Department Care Team (Late st Contact Info) Description 05/03/2022 Refill [facility] [address] [place] [address] Boris Hansen MD [address] [place] [address] [email or web address] Med Change Request Social History Tobacco Use Types Packs/Day Years [...] 9:00 AM EDT Office Visit [facility] Plastic Surgery 45 [facility] 2nd [place] [address] Herminia Mclain MD 75 [place] [address] [email or web address] 03/17/2025 2:30 PM EST Office [facility] 32 [facility], 9th Floor, [address] [place] [address] Anthony Oglesby MD 55 [facility] 9 [place] [address] [email or web address] 04/01/2025 1:20 PM EST Office Visit [address] [address] Boris Hansen MD 243 [place] [address] [email or web address] 04/01/2025 1:40 PM EST Appointment [address] [address] documented as of this encounter Visit Diagnoses Not on filedocumented in this encounter Additional Health Concerns Infection Onset Date Last Indicated Resolved Time MRSA 04/09/2021 04/09/2021 04/09/2023 1:21 AM EST documented as of this encounter Care Teams Feed Mill Supervisor Relationship Specialty Start Date End Date Winifred Fenton MD [address] [address] PCP - General Internal Medicine 10/09/17 Yasmany Richards MD [address] [place] [address] [email or web address] Primary Oncologist Neurology 07/10/1811/19 Anthony Oglesby MD 55 [facility] YA 9 [place] [address] [email or web address] Neurology 11/20/24 documented as of this encounter Additional Source Comments The information contained in this document represents components of the legal health record. It is not the complete legal health record.[facility]
--- OUTSIDE RECORDS SUMMARY | 2025-01-25 00:59 | XMS_ITS | Encounter Summary ---
Author Organization [facility] Address [address] [place] [address] Care Team Providers Care Agency Sales Director Name Role Phone Huyen Salgado PA-C Primary Care Provider [phone] Encounter Details Date Type Department Care Team (Late st Contact Info) Description 01/25/2017 / Visits [facility] 10[address] [place] [address] Zach Perez 10[address] [place], [place] [phone] Social History Tobacco Use Types Packs/Day Years [...] on filedocumented in this encounter Care Teams Agency Sales Director Relationship Specialty Start Date End Date Huyen Salgado PA-C [facility] [place] [address] PCP - General Internal Medicine 04/20/17 08/23/18 documented as of this encounter
--- OUTSIDE RECORDS SUMMARY | 2025-01-25 00:59 | XMS_ITS | Encounter Summary ---
Author Organization [facility] Address [address] [place] [address] [place] [address] Phone Care Team Providers Care Customer Service Clerk Name Role Phone Winifred Fenton MD Primary Care Pr ovider Yasmnay Richards MD Unavailable [phone] Anthony Oglesby MD Unavailable Encounter Details Date Type Department Care Team (Late st Contact Info) Description 10/11/2017 Procedure Pass [facility] [address] [place] [address] Social History Tobacco Use Types Packs/Day Years [...] Description 02/12/2025 9:00 AM EDT Office Visit [facility] Plastic Surgery 45 [facility] 2nd [place] [address] Herminia Mclain MD 75 [place] [address] [email or web address] 03/17/2025 2:30 PM EST Office Visit [facility] for Neuro Oncology 32 [facility], 9th Floor, [address] [place] [address] Anthony Oglesby MD [address] [address] [email or web address] 04/01/2025 1:20 PM EST Office Visit [facility] 243 [facility] 1st [place] [address] Boris Hansen MD 243 [place] [address] [email or web address] 04/01/2025 1:40 PM EST Appointment [facility] [address] 1st [place] [address] documented as of this encounter Visit Diagnoses Not on filedocumented in this encounter Additional Health Concerns Infection Onset Date Last Indicated Resolved Time MRSA 04/09/2021 04/09/2021 04/09/2023 1:21 AM EST CoV-Risk 09/22/2021 09/22/2021 10/03/2021 1:24 AM EDT documented as of this encounter Care Teams Customer Service Clerk Relationship Specialty Start Date End Date Winifred Fenton MD [address] [address] PCP - General Internal Medicine 10/09/17 Yasmany Richards MD [address] [place] [address] [email or web address] Primary Oncologist Neurology 07/10/1811/19 Anthony Oglesby MD 55 [facility] YAW 9 [place] [address] MAK@[email or web address] Neurology 11/20/24 documented as of this encounter Additional Source Comments The information contained in this document represents components of the legal health record. It is not the complete legal health record.[facility]
--- OUTSIDE RECORDS SUMMARY | 2025-01-25 00:59 | XMS_ITS | Encounter Summary ---
Author Organization [facility] Address [address] [place] [address] [place] [address] Phone Care Team Providers Care Public Relations Coordinator Name Role Phone Ania Wilburn MD Primary Care P rovider Nadege Rutledge PA-C Primary Care Provider U Winifred Parish MD Primary Care Pr ovider Yasmany Richards MD Unavailable [phone] Anthony Oglesby MD Unavailable Reason for Referral * MRI/CAT Scan - Closed Specialty Diagnoses / Procedures Referred By Ping hunter Referred To Contact Radiology Diagnoses Transplanted organ and tissue status Procedures CT Angio 3D Reconstruction Head Jacinto Villalba MD Phone: tel: fax: mailto:[email or web address] Referral ID Status Reason Start Date Expiration Date Visits Re quested Visits Authorized [id number] Closed 02/04/2015 08/03/2015 1 1 Encounter Details Date Type Department Care Team (Late st Contact Info) Description 02/04/2015 Transcribe Orders [facility] 75 [place] [address] Jacinto Villalba MD 26[address] [facility] 4th [place] [address] [email or web address] Transplanted organ and tissue status (Primary Dx) Social History Tobacco Use Types Packs/Day Years Used Date Smoking Tobacco: Heavy Smoker Cigarettes Started: 05/28/2007 Comments:Cut back to 1 PPD p bandar Hookah 4-5X/day Alcohol Use Standard Drinks/Week Comments No 0 [...] Visit [facility] Plastic Surgery [address] [address] Herminia Mclain MD 75 [place] [address] [email or web address] 03/17/2025 2:30 PM EST Office Visit [facility] 32 [facility], 9th Floor, [address] [place] [address] Anthony Oglesby MD 55 [facility] 9 [place] [address] [email or web address] 04/01/2025 1:20 PM EST Office Visit [address] [address] Boris Hansen MD [address] [place] [address] [email or web address] 04/01/2025 1:40 PM EST Appointment [address] [address] Pending Results Name Type Priority Associated Diagnoses Date /Time CT Angio 3D Reconstruction Head Imaging Routine Transplanted organ and tissue status 02/04/2015 3:28 PM EDT Scheduled Orders Name Type Priority Associated Diagnoses Orde r Schedule CT Angio 3D Reconstruction Head Imaging Routine Transplanted organ and tissue status Expected: 02/04/2015, Expires: 2016 documented as of this encounter Visit Diagnoses Diagnosis Transplanted organ and tissue status- Primary documented in this encounter Additional Health Concerns Infection Onset Date Last Indicated Resolved Time MRSA 04/09/2021 04/09/2021 04/09/2023 1:21 AM EST CoV-Risk 09/22/2021 09/22/2021 10/03/2021 1:24 AM EDT documented as of this encounter Care Teams Public Relations Coordinator Relationship Specialty Start Date End Date Ania Wilburn MD 1145 [facility] 205 [place] [address] PCP - General Internal Medicine 07/27/15 12/14/16 Nadege Rutledge PA-C PCP - General Internal Medicine 12/15/16 10/08/17 Winifred Fenton MD 230 [facility] 1 [place] [address] PCP - General Internal Medicine 10/09/17 Yasmany Richards MD 55 [place] [address] [email or web address] Primary Oncologist Neurology 07/10/1811/19 Anthony Oglesby MD 55 [facility] 9 [place] [address] [email or web address] Neurology 11/20/24 documented as of this encounter Additional Source Comments The information contained in this document represents components of the legal health record. It is not the complete legal health record.[facility]
--- OUTSIDE RECORDS SUMMARY | 2025-01-25 00:59 | XMS_ITS | Encounter Summary ---
Author Organization [facility] Address [address] [place] [address] [place] [address] Phone Care Team Providers Care Professional Volleyball Player Name Role Phone Winifred Fenton MD Primary Care Pr ovider Yasmany Richards MD Unavailable [phone] Anthony Oglesby MD Unavailable Encounter Details Date Type Department Care Team (Late st Contact Info) Description 07/29/[address] [facility] Periop 75 [place] [address] Social History Tobacco Use Types Packs/Day Years [...] 02/12/2025 9:00 AM EDT Office Visit [facility] Plastic Surgery 45 [facility] 2nd [place] [address] Herminia Mclain MD 75 [place] [address] [email or web address] 03/17/2025 2:30 PM EST Office Visit [facility] for Neuro Oncology 32 [facility], 9th Floor, [address] [place] [address] Anthony Oglesby MD [address] [address] [email or web address] 04/01/2025 1:20 PM EST Office Visit [facility] 243 [facility] 1st [place] [address] Boris Hansen MD 243 [place] [address] [place]@[email or web address] 04/01/2025 1:40 PM EST Appointment [facility] 243 [facility] 1st [place] [address] documented as of this encounter Visit Diagnoses Not on filedocumented in this encounter Additional Health Concerns Infection Onset Date Last Indicated Resolved Time MRSA 04/09/2021 04/09/2021 04/09/2023 1:21 AM EST CoV-Risk 09/22/2021 09/22/2021 10/03/2021 1:24 AM EDT documented as of this encounter Care Teams Professional Volleyball Player Relationship Specialty Start Date End Date Winifred Fenton MD [address] [address] PCP - General Internal Medicine 10/09/17 Yasmany Richards MD [address] [place] [address] [email or web address] Primary Oncologist Neurology 07/10/1811/19 Anthony Oglesby MD 55 [facility] YA 9 [place] [address] MAK@[email or web address] Neurology 11/20/24 documented as of this encounter Additional Source Comments The information contained in this document represents components of the legal health record. It is not the complete legal health record.[facility]
--- OUTSIDE RECORDS SUMMARY | 2025-01-25 00:59 | XMS_ITS | Encounter Summary ---
Author Organization [facility] Address [address] [place] [address] [place] [address] Phone Care Team Providers Care Cloud Architect Name Role Phone Winifred Fenton MD Primary Care Pr ovider Yasmany Richards MD Unavailable [phone] Anthony Oglesby MD Unavailable Encounter Details Date Type Department Care Team (Late st Contact Info) Description 04/06/2020 Procedure Pass [facility] Periop 75 [place] [address] Social History Tobacco Use Types Packs/Day Years [...] Description 02/12/2025 9:00 AM EDT Office Visit [facility] Plastic Surgery 45 [facility] 2nd [place] [address] Herminia Mclain MD 75 [place] [address] [email or web address] 03/17/2025 2:30 PM EST Office [facility] for Neuro Oncology 32 [facility], 9th Floor, [address] [place] [address] Anthony Oglesby MD [address] [address] MAK@[facility] 04/01/2025 1:20 PM EST Office Visit [facility] 243 [facility] 1st [place] [address] Boris Hansen MD 243 [place] [address] [place]@[email or web address] 04/01/2025 1:40 PM EST Appointment [facility] [address] 1st [place] [address] documented as of this encounter Visit Diagnoses Not on filedocumented in this encounter Additional Health Concerns Infection Onset Date Last Indicated Resolved Time MRSA 04/09/2021 04/09/2021 04/09/2023 1:21 AM EST CoV-Risk 09/22/2021 09/22/2021 10/03/2021 1:24 AM EDT documented as of this encounter Care Teams Cloud Architect Relationship Specialty Start Date End Date Winifred Fenton MD [address] [address] PCP - General Internal Medicine 10/09/17 Yasmany Richards MD [address] [place] [address] [email or web address] Primary Oncologist Neurology 07/10/1811/19 Anthony Oglesby MD 55 [facility] YAW 9 [place] [address] MAK@[email or web address] Neurology 11/20/24 documented as of this encounter Additional Source Comments The information contained in this document represents components of the legal health record. It is not the complete legal health record.[facility]
--- OUTSIDE RECORDS SUMMARY | 2025-01-25 00:59 | XMS_ITS | Encounter Summary ---
Author Organization [email or web address] Address [address] [facility] 7t [place] [address] Care Team Providers Care Industrial Psychology Teacher Name Role Phone Winifred Fenton MD Primary Care Provider [phone] Encounter Details Date Type Department Care Team (Latest Contact Info) Description 03/21/2023 Orders Only [facility] MED & PEDS [address] [place], [place] [phone] Winifred Fenton MD [address] [place] [address] Type 1 neurofibromatosis (CMS/HCC) (Primary Dx); Lumbar [...] Description 03/03/2025 2:45 PM EST Office Visit [facility] MED & PEDS [address] [place], [place] [phone] Winifred Fenton MD [address] [place] [address] documented as of this encounter Visit Diagnoses Diagnosis Type 1 neurofibromatosis (CMS/HCC) (HCC)- Primary Lumbar radiculopathy Thoracic or lumbosacral neuritis or radiculitis, unspecified documented in this encounter Additional Health Concerns Assessment Noted Time PHQ-9 Depression Total Score: 7 05/29/19 23 4:02 PM EST documented as of this encounter Care Teams Industrial Psychology Teacher Relationship Specialty Start Date End Date Winifred Fenton MD [address] [place] [address] PCP - General Internal Medicine 09/13/17 Giovanni Randhawa Chief General Pediatric ClinicMerchant Mariner 07/23/23 documented as of this encounter
[2025-01-25 01:26] VITALS: BP 126/73; PULSE 116; RESP 20; TEMP 36.7; O2SAT 96
== END 2025-01-25 01:26 | disposition home or self-care (01) ==
LOC: HO.ED 01-25 00:55
PROVIDERS: Emergency Provider Emergency Medicine; PCP Internal Medicine
DX: S93.402A Sprain of unspecified ligament of left ankle, initial encounter (principal); X50.1XXA Overexertion from prolonged static or awkward postures, initial encounter; Y93.9 Activity, unspecified; Y92.9 Unspecified place or not applicable; Y99.8 Other external cause status; Z79.899 Other long term (current) drug therapy
CPT/HCPCS: 73610; 96372; 99283; 99284; J1885

== ENCOUNTER → 2025-01-25 | Outpatient (BNV) | payer MEDICAID, SELFPAY | PROVIDERS: Emergency Provider Emergency Medicine; PCP Internal Medicine; Visit Provider Radiology Diagnostic Radiology | DX: R22.42 Localized swelling, mass and lump, left lower limb (principal) | CPT/HCPCS: 73610 ==

== ENCOUNTER 2025-03-02 15:08 | Outpatient (AMB) | payer MEDICAID, SELFPAY ==
[2025-03-02 15:15] VITALS: BP 120/78; PULSE 77; O2SAT 97; BMI 33.1
--- NOTE | 2025-03-02 15:15 | A.OFFVIS_ITS ---
Vital Signs 03/02/25 15:15 Height 5 ft 6 in Weight 205 lb 0.478 oz BMI 33.1 BP 120/78 Blood Pressure Location Lt brachial Position Sitting Pulse 77 Pulse Source Pulse Oximeter Pulse Oximetry (%) 97 Oxygen Delivery Method Room Air Intake Visit Reasons: Shortness of breath Intake Note: pt is here for follow up and states he has some cough, dry Absence Management Consultant Required: No Absence Management Consultant Services: Absence Management Consultant Offered & Declined Dealer Account Manager: Dealer Account Manager offered & declined Allergies No Known Allergies Allergy (Verified 03/02/25 15:21) Medication List - Last Reconciled 03/02/25 by Cynthia Shook MD albuterol sulfate 90 mcg/actuation 2 puffs inhalation Q6H PRN albuterol sulfate 90 mcg/actuation (Ventolin HFA) 2 puffs inhalation Q4-6H PRN fluticasone furoate-vilanterol 200-25 mcg/dose (Breo Ellipta) 1 inh inhalation DAILY 30 days ketorolac 10 mg PO TID PRN lisinopril 20 mg PO DAILY Do you need a note to return to daycare/school/sports/work: No HPI HPI Shortness of breath: Details: THIS 35 YEARS OLD, REFUSED G FROM [place] , WHO HAS 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 HE USES BREO 200-25 , 1 INHALATION DAILY AND VENTOLIN INHALER ONLY ONCE IN A WHILE FOR ACUTE SHORTNESS OF BREATH. HE HAS BEEN A SMOKER IN THE PAST, BUT NOW CUT DOWN TO 1 CIGARETTE A DAY. HE HAS MILD DRY COUGH OFF AND ON AND THAT IS PROBABLY DUE TO HIS RESIDUAL SMOKER. OVERALL HE IS DOING OKAY BUT BECAUSE HE IS MORE SEDENTARY AND ALSO HAS A BIG MEAL BEFORE GOING TO SLEEP, HE HAS PUT ON WEIGHT. HE HAS EXPECTING TO HAVE CORRECTIVE SURGERY FOR HIS LEFT SIDE OF THE FACE AND EYE , IN [place] , SO HE IS TRYING TO QUIT SMOKING COMPLETELY. [facility] Medical History (Updated 03/02/25 @ 15:35 by Cynthia Shook MD) Obesity (BMI 30-39.9) Asthma Dermatitis Primary hypertension Lumbar radiculopathy Chemotherapy follow-up examination Neurofibromatosis Surgical History History of facial surgery Family History Father No problems noted. Mother No problems noted. Social History Alcohol intake: never Patient Tobacco Use Status: Current everyday Tobacco user Cigarettes Per Day: 1 Review of Systems Const All systems reviewed & are unremarkable except as noted in HPI and below Eyes Reports other (LEFT EYE, ATROPHIC AND BLIND SINCE ) ENT Reports no additional complaints Card Reports no additional complaints Resp Reports as per HPI GI Reports no additional complaints Reports no additional complaints Musc Reports no additional complaints Skin/Breast Reports system reviewed and no additional complaints, except as documented Neuro Reports no additional complaints Psych Reports no additional complaints Endo Reports no additional complaints Ronnie/Lymph Reports no additional complaints Physical Exam Vital Signs: Last Vital Signs Pulse 77 03/02/25 15:15 BP 120/78 03/02/25 15:15 Pulse Ox 97 03/02/25 15:15 Oxygen Delivery Method Room Air 03/02/25 15:15 BMI result Body Mass Index 33.1 Const General: healthy appearing, comfortable, no acute distress, alert and awake Orientation/consciousness: patient oriented x3 HEENT Other: 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 Head: Yes normal to inspection General nose exam: No nasal polyps present and No nasal discharge present Face and sinus: Yes sinuses nontender Mouth: oropharynx normal Throat: Yes posterior oropharynx normal Eyes Other: LEFT EYE IS ATROPHIC. 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 NO WHEEZES RHONCHI OR CREPITATIONS ARE HEARD TODAY. Effort & Inspection: normal respiratory effort Auscultation: clear to auscultation bilaterally, no crackles and no wheezes Cardio Palpation: normal PMI Rate: regular rate Rhythm: regular rhythm Heart sounds: no gallops and no murmurs Peripheral pulses: Peripheral pulses 2+ throughout GI Palpation (GI): Soft to palpation, nontender, No hepatosplenomegaly present and no masses Auscultation: normal bowel sounds Back/Spine/Pelvis Thoracic/Lumbar Spine: thoracic and lumbar spine normal to inspection, thoraco- lumbar ROM limited and other (SURGICAL SCARS FROM PREVIOUS SURGICAL PROCEDURES) Skin General skin exam: no rashes or lesions noted Neuro General: patient oriented x3 and no focal motor deficits Cranial nerves: Yes CN's II-XII intact bilaterally Extrem General: Yes normal to inspection, Yes no clubbing, cyanosis or edema and Yes no calf tenderness Psych Appearance: grossly normal and well kempt Speech and movement: Normal speech and movement present Assessment & Plan Assessment & Plan (1) Asthma: Comment: SPIROMETRY CONFIRMED THAT HE DOES HAVE MILD TO MODERATE DEGREE OF OBSTRUCTIVE AIRWAY DISORDER/ MOST LIKELY BRONCHIAL ASTHMA. IT HAS BEEN FAIRLY WELL CONTROLLED WITH THE USE OF BREO 200-25 ONCE A DAY. HE HARDLY NEEDS TO USE THE RESCUE INHALER. Code(s): J45.909 - Unspecified asthma, uncomplicated Category: Medical Plan: CONTINUE TO USE BREO 200-251 INHALATION DAILY ALBUTEROL HFA( VENTOLIN) 2 PUFFS Q 4-6 HOURS ONLY P.R.N.. (2) Obesity (BMI 30-39.9): Comment: LATELY HE HAS PUT ON SOME WEIGHT BECAUSE HE IS MORE SEDENTARY AND ALSO, EATING RATHER HEAVY MEAL JUST BEFORE GOING TO BED. Code(s): E66.9 - Obesity, unspecified Category: Medical Plan: HE IS INSTRUCTED TO NOT EAT AT LEAST FOR 3 HOURS BEFORE GOING TO BED. CUT OUT CARBOHYDRATES. DO WALK 1 OR. 2 MILES EVERY DAY Coding Level of Care Code Est Pt Level 3 (87568) Diagnoses Asthma J45.909 Obesity (BMI 30-39.9) E66.9
--- OUTSIDE RECORDS SUMMARY | 2025-03-02 16:29 | XMS_ITS | Encounter Summary ---
Author Organization [facility] Address [address] [facility] [address] [place] [address] Phone Care Team Providers Care Reel Tender Name Role Phone Winifred Fenton MD Primary Care Pr ovider Yasmany Richards MD Unavailable MAVIS [email or web address] Anthony Oglesby MD Unavailable Reason for Visit * Reason Comments Medication Refill Encounter Details Date Type Department Care Team (Late st Contact Info) Description 03/12/2021 Refill [facility] Neurosurgery [address] [facility], 7th Floor, [address] [place] [address] Alfonso Walker MD, PhD [address] [phone] [email or web address] U Medication Refill Social History Tobacco Use Types Packs/Day Years Used Date Smoking Tobacco: Every Day Cigarettes 0.5 17.8 Started: 05/28/2007 Pipe Smokeless Tobacco: Never Comments:used [...] Care Team (Late st Contact Info) Description 03/17/2025 2:30 PM EST Office Visit [facility] Neuro Oncology [address] [facility], 9th Floor, [address] [place] [address] Anthony Oglesby MD 55 [facility] 9 [place] [address] [email or web address] 04/01/2025 1:20 PM EST Office Visit [facility] [address] [facility] 1st [place] [address] Boris Hansen MD [address] [place] [address] [email or web address] 04/01/2025 1:40 PM EST Appointment [facility] [address] [address] 04/16/2025 11:15 AM EST Office Visit [facility] Plastic Surgery [address] [address] Herminia Mclain MD 75 [place] [address] [email or web address] Scheduled Procedures Name Priority Associated Diagnoses Date/Ti me 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 Visit Diagnoses Diagnosis Lumbar radiculopathy Thoracic or lumbosacral neuritis or radiculitis, unspecified documented in this encounter Additional Health Concerns Infection Onset Date Last Indicated Resolved Time MRSA 04/09/2021 04/09/2021 04/09/2023 1:21 AM EST CoV-Risk 09/22/2021 09/22/2021 10/03/2021 1:24 AM EDT documented as of this encounter Care Teams Reel Tender Relationship Specialty Start Date End Date Winifred Fenton MD [address] [place] [address] PCP - General Internal Medicine 10/09/17 Yasmany Richards MD [email or web address] Primary Oncologist Neurology 07/10/1811/19 Anthony Oglesby MD 55 [facility] YA 9 [place] [address] [email or web address] Neurology 11/20/24 documented as of this encounter Additional Source Comments The information contained in this document represents components of the legal health record. It is not the complete legal health record.[facility]
--- OUTSIDE RECORDS SUMMARY | 2025-03-02 16:29 | XMS_ITS | Clinical Summary ---
Author Organization [facility] Address [address] [place] [address] Phone Care Team Providers Care Emergency Room Doctor Name Role Phone Winfired Fenton MD Primary Care Pr ovider Anthony [...] 30 capsule 3 2 Active hypromellose (ARTIFICIAL TEARS,[id number] PRO,) Drop Place 1 drop into each [...] EVERY DAY 90 capsule 3 5 Active varenicline tartrate (CHANTIX MELANIE) 0.5 mg (11)- 1 mg (42) tablet Give with meals and with a full glass of water. 53 tablet 5 Active Active Problems Patient Care Coordination No te Formatting of this note migh t be different from the original. [facility] approved mekinist 0.5mg tablets through 09/08/18 07/08/18 did a PA with [employer] for clindamycin gel for a rash d/t medication 08/28/19 Clindamycin gel PA faxed to -approved till 08/18 $0 copay Patient needs visitor due to hearing/visual deficits 08/18/21: Clindamycin Phosphate 1% gel PA faxed to [employer] and will await results. 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 Plastic Surgery [address] [place] [address] Herminia Mclain MD Type 1 neurofibromatosis (Primary Dx) 02/12/[address] [facility] Plastic Surgery [address] [address] Osbaldo Cochranad from Last 3 Months Immunizations Immunization Administration [...] your housing situation today? I have shadi sing 07/26/2023 How many times have you move [...] Description 03/17/2025 2:30 PM EST Office Visit [facility] Center for Neuro Oncology [address] [facility], 9th Floor, [address] [place] [address] Anthony Oglesby MD 55 [facility] YA 9 [place] [address] [email or web address] 04/01/2025 1:20 PM EST Office Visit [facility] [address] [address] Boris Hansen MD 243 [place] [address] [email or web address] 04/01/2025 1:40 PM EST Appointment [facility] [address] [address] 04/16/2025 11:15 AM EST Office Visit [facility] Plastic Surgery [address] [address] Herminia Mclain MD 75 [place] [address] [email or web address] Scheduled Procedures Name Priority Associated Diagnoses Date/Ti me RECONSTRUCTION MID FACE Type 1 neurofibromatosis Health Maintenance Due Date Last Done Comments [...] this topic Medical Devices Implanted Type Area Stained Glass Artist Device Identifier Shelf Expiration Date Model / Serial / Lot System Shunt 2.0 Ped With Prechamber Progav - [id number] Implanted:Qty: 1 on 07/27/2023 by Gildardo Sparks MD at [facility] Right: Ventricle [employer] 03/22/2027 [id number] / [id number] / [id number] Description:Ventricular zandra toneal shunt Procedures Procedure Name Priority Date/Time Associated Diagnosis Comments BASIC METABOLIC PANEL (BMP) Routine 07/30/2023 5:20 AM EDT from Last 3 Months or Most Recently Relevant to Health Maintenance Results * Basic metabolic panel (07/30/2023 5:20 AM EDT) SODIUM 139 135 - 145 mmol/L [facility] POTASSIUM 4.1 3.4 - 5.0 mmol/L [facility] CHLORIDE 102 98 - 108 mmol/L [facility] CO2 26 23 - 32 mmol/L [facility] BUN 18 8 - 25 mg/dL [facility] CREATININE 0.72 0.60 - 1.50 mg/dL [facility] GLUCOSE 100 70 - 110 mg/dL [facility] CALCIUM 9.4 8.5 - 10.5 mg/dL [facility] EGFR >120 >59 mL/min/1.7 3m2 [facility] Comment:Estimated glomerular filtration rate calculated using the CKD-EPI refit equation. ANION GAP 11 3 - 17 mmol/L [facility] Blood 07/30/2023 5:20 AM EDT 07/30/2023 6:29 AM EDT us Gildardo Sparks MD LAB BLOOD BKR ORDERABLES Final R esult [facility] [address] [place] [address] from Last 3 Months or Most Recently Relevant to Health Maintenance Insurance C3 ACO C3 ACO C3 ACO C3 ACO C3 [place] [id number] [place] [address] [place] [address] Advance Directives For more information, please contact: [phone] (9AM - 5PM [facility], Sunday-Sunday) Documents on File Type Date Recorded Patient Laboratory Courier Expl anation Healthcare Proxy 03/12/2015 7:52 AM [...] 5:03 PM 03/15/2015 5:00 PM Care Teams Emergency Room Doctor Relationship Specialty Start Date End Date Winifred Fenton MD [address] [place] [address] PCP - General Internal Medicine 10/09/17 Anthony Oglesby MD [address] [place] [address] [email or web address] Neurology 11/20/24 Additional Source Comments The information contained in this document represents components of the legal health record. It is not the complete legal health record.[facility]
--- OUTSIDE RECORDS SUMMARY | 2025-03-02 16:29 | XMS_ITS | Encounter Summary ---
Author Organization [facility] Address [address] [place] [address] [place] [address] Phone Care Team Providers Care Industrial Organization Manager Name Role Phone Winifred Fenton MD Primary Care Pr ovider Yasmany Richards MD Unavailable MAVIS [email or web address] Anthony Oglesby MD Unavailable Encounter Details Date Type Department Care Team (Late st Contact Info) Description 08/16/[address] [facility] [place] [address] [place] [address] Social History Tobacco Use Types Packs/Day Years [...] Description 03/17/2025 2:30 PM EST Office Visit [facility] for Neuro Oncology [address] [facility], 9th Floor, [address] [place] [address] Anthony Oglesby MD [address] [address] [email or web address] 04/01/2025 1:20 PM EST Office Visit [address] [address] Boris Hansen MD [address] [place] [address] [email or web address] 04/01/2025 1:40 PM EST Appointment [address] [address] 04/16/2025 11:15 AM EST Office Visit [facility] Plastic Surgery [address] [facility] 2nd [place] [address] Herminia Mclain MD 75 [place] [address] [email or web address] Scheduled Procedures Name Priority Associated Diagnoses Date/Ti me 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 Visit Diagnoses Not on filedocumented in this encounter Additional Health Concerns Infection Onset Date Last Indicated Resolved Time MRSA 04/09/2021 04/09/2021 04/09/2023 1:21 AM EST CoV-Risk 09/22/2021 09/22/2021 10/03/2021 1:24 AM EDT documented as of this encounter Care Teams Industrial Organization Manager Relationship Specialty Start Date End Date Winifred Fenton MD [address] [place] [address] PCP - General Internal Medicine 10/09/17 Yasmany Richards MD [email or web address] Primary Oncologist Neurology 07/10/1811/19 Anthony Oglesby MD [address] [place] [address] 9 [place] [address] [email or web address] Neurology 11/20/24 documented as of this encounter Additional Source Comments The information contained in this document represents components of the legal health record. It is not the complete legal health record.[facility]
--- OUTSIDE RECORDS SUMMARY | 2025-03-02 16:29 | XMS_ITS | Encounter Summary ---
Author Organization [facility] Address [address] [facility] [address] [place] [address] Phone Care Team Providers Care Digital Assistant Name Role Phone Winifred Fenton MD Primary Care Pr ovider Yasmany Richards MD Unavailable MAVIS [email or web address] Anthony Oglesby MD Unavailable Reason for Visit * Reason Comments Medication Refill Encounter Details Date Type Department Care Team (Late st Contact Info) Description 04/12/2021 Refill [facility] [address] [facility], 7th Floor, [address] [place] [address] Viviane Novoa, SENIOR SOFTWARE DEVELOPER [address] [address] [email or web address] Medication Refill Social History Tobacco Use Types [...] Description 03/17/2025 2:30 PM EST Office Visit [facility] [address] [facility], 9th Floor, [address] [place] [address] Anthony Oglesby MD 55 [facility] 9 [place] [address] [email or web address] 04/01/2025 1:20 PM EST Office Visit [facility] 243 [facility] 1st [place] [address] Boris Hansen MD 243 [place] [address] [email or web address] 04/01/2025 1:40 PM EST Appointment [facility] [address] [address] 04/16/2025 11:15 AM EST Office Visit [facility] Plastic Surgery [address] [address] Herminia Mclain MD 75 [place] [address] [email or web address] Scheduled Procedures Name Priority Associated Diagnoses Date/Ti me 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 Visit Diagnoses Not on filedocumented in this encounter Additional Health Concerns Infection Onset Date Last Indicated Resolved Time MRSA 04/09/2021 04/09/2021 04/09/2023 1:21 AM EST CoV-Risk 09/22/2021 09/22/2021 10/03/2021 1:24 AM EDT documented as of this encounter Care Teams Digital Assistant Relationship Specialty Start Date End Date Winifred Fenton MD [address] [place] [address] PCP - General Internal Medicine 10/09/17 Yasmany Richards MD [email or web address] Primary Oncologist Neurology 07/10/1811/19 Anthony Oglesby MD [address] [facility] 9 [place] [address] [email or web address] Neurology 11/20/24 documented as of this encounter Additional Source Comments The information contained in this document represents components of the legal health record. It is not the complete legal health record.[facility]
--- OUTSIDE RECORDS SUMMARY | 2025-03-02 16:29 | XMS_ITS | Encounter Summary ---
Author Organization [facility] Address [address] [place] [address] [place] [address] Phone Care Team Providers Care Formal Service Waiter Name Role Phone Winifred Fenton MD Primary Care Pr ovider Yasmany Richards MD Unavailable MAVIS [email or web address].[email or web address] Anthony Oglesby MD Unavailable Encounter Details Date Type Department Care Team (Late st Contact Info) Description 04/08/2021 Procedure Pass [facility] Emergency Radiology, Main [address], Floor 1 [place] [address] Social History Tobacco Use Types Packs/Day Years [...] Author No Risk Indicated 04/09/2021 3:00 PM EST Ani Stallworth RN * Mcdonald Suicide Severity Rating Scale (Screener/Recent Self-Report) Question Answer Date of Assessment Author 1. Wish to be (Past 1 Month) No 04/09/2021 3:00 PM Ani Garcia RN 2. Non-Specific Active Suici emma Thoughts (Past 1 Month) No 04/09/2021 3:00 PM EST Col gordon Garces RN 6. Suicidal Behavior (Lifetime) No 3:00 PM EST Ani Garces RN documented as of this encounter Mental [...] [facility] [address] [facility], 9th Floor, [address] [place] [address] Anthony Oglesby MD 55 [facility] 9 [place] [address] [email or web address] 04/01/2025 1:20 PM EST Office Visit [facility] [address] [address] Boris Hansen MD 243 [place] [address] [place]@[facility] 04/01/2025 1:40 PM EST Appointment [address] [address] 04/16/2025 11:15 AM EST Office Visit [facility] Plastic Surgery [address] [address] Herminia Mclain MD 75 [place] [address] [email or web address] Scheduled Procedures Name Priority Associated Diagnoses Date/Ti me 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 Visit Diagnoses Not on filedocumented in this encounter Additional Health Concerns Infection Onset Date Last Indicated Resolved Time MRSA 04/09/2021 04/09/2021 04/09/2023 1:21 AM EST CoV-Risk 09/22/2021 09/22/2021 10/03/2021 1:24 AM EDT documented as of this encounter Care Teams Formal Service Waiter Relationship Specialty Start Date End Date Winifred Fenton MD [address] [place] [address] PCP - General Internal Medicine 10/09/17 Yasmany Richards MD STARR@[email or web address].[email or web address].[facility] Primary Oncologist Neurology 07/10/1811/19 Anthony Oglesby MD 55 [facility] YA 9 [place] [address] [email or web address] Neurology 11/20/24 documented as of this encounter Additional Source Comments The information contained in this document represents components of the legal health record. It is not the complete legal health record.[facility]
--- OUTSIDE RECORDS SUMMARY | 2025-03-02 16:29 | XMS_ITS | Encounter Summary ---
Author Organization [facility] Address [address] [place] [address] [place] [address] Phone Care Team Providers Care Compounder Flavorings Name Role Phone Winifred Fenton MD Primary Care Pr ovider Yasmany Richards MD Unavailable MAVIS [email or web address] Anthony Oglesby MD Unavailable Encounter Details Date Type Department Care Team (Late st Contact Info) Description 04/11/2021 Procedure Pass [facility] PERIOPERATIVE DEPT [address] [place] [phone] Social History Tobacco Use Types Packs/Day Years [...] Description 03/17/2025 2:30 PM EST Office Visit [facility] [address] [facility], 9th Floor, [address] [place] [address] [place] Oglesby MD 55 [facility] 9 [place] [address] [email or web address] 04/01/2025 1:20 PM EST Office Visit [address] [address] Boris Hansen MD [address] [place] [address] [place]@[email or web address] 04/01/2025 1:40 PM EST Appointment [address] [address] 04/16/2025 11:15 AM EST Office Visit [facility] Plastic Surgery 45 [facility] 2nd [place] [address] Herminia Mclain MD 75 [place] [address] [email or web address] Scheduled Procedures Name Priority Associated Diagnoses Date/Ti me 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 Visit Diagnoses Not on filedocumented in this encounter Additional Health Concerns Infection Onset Date Last Indicated Resolved Time MRSA 04/09/2021 04/09/2021 04/09/2023 1:21 AM EST CoV-Risk 09/22/2021 09/22/2021 10/03/2021 1:24 AM EDT documented as of this encounter Care Teams Compounder Flavorings Relationship Specialty Start Date End Date Winifred Fenton MD [address] [place] [address] PCP - General Internal Medicine 10/09/17 Yasmany Richards MD [email or web address] Primary Oncologist Neurology 07/10/1811/19 [place] Oglesby MD [address] [place] [address] 9 [place] [address] MAK@[email or web address] Neurology 11/20/24 documented as of this encounter Additional Source Comments The information contained in this document represents components of the legal health record. It is not the complete legal health record.[facility]
--- OUTSIDE RECORDS SUMMARY | 2025-03-02 16:29 | XMS_ITS | Encounter Summary ---
Author Organization [facility] Address [address] [place] [address] [address] [place] [address] Phone Care Team Providers Care Director Print Name Role Phone Winifred Fenton MD Primary Care Pr ovider Yasmany Richards MD Unavailable MAVIS Juarez@[facility].[email or web address].[facility] Anthony Oglesby MD Unavailable Encounter Details Date Type Department Care Team (Late st Contact Info) Description 07/07/2024 Procedure Pass [facility] 2 [address] [facility], 2nd [place] [address] Social History Tobacco Use Types Packs/Day Years [...] Description 03/17/2025 2:30 PM EST Office Visit [facility] Neuro Oncology 32 [facility], 9th Floor, [address] [place] [address] Anthony Oglesby MD [address] [address] [email or web address] 04/01/2025 1:20 PM EST Office Visit [address] [address] Boris Hansen MD [address] [place] [address] [place]@[email or web address] 04/01/2025 1:40 PM EST Appointment [address] [address] 04/16/2025 11:15 AM EST Office Visit [facility] Plastic Surgery [address] [address] Herminia Mclain MD 75 [place] [address] [email or web address] Scheduled Procedures Name Priority Associated Diagnoses Date/Ti me 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 Visit Diagnoses Not on filedocumented in this encounter Care Teams Director Print Relationship Specialty Start Date End Date Winifred Fenton MD [address] [place] [address] PCP - General Internal Medicine 10/09/17 Yasmany Richards MD STARR@[facility] Primary Oncologist Neurology 07/10/1811/19 Anthony Oglesby MD [address] [place] [address] 9 [place] [address] [email or web address] Neurology 11/20/24 documented as of this encounter Additional Source Comments The information contained in this document represents components of the legal health record. It is not the complete legal health record.[facility]
--- OUTSIDE RECORDS SUMMARY | 2025-03-02 16:29 | XMS_ITS | Encounter Summary ---
Author Organization [employer] Address 75 [facility] 7t [place] [address] Care Team Providers Care Electrical Engineering Drafting Officer Name Role Phone Winifred Fenton MD Primary Care Provider Ion Cobos RN Unavailable [phone] Kobe Gilmore Unavailable Encounter Details Date Type Department Care Team (Late st Contact Info) Description 10/15/2024 Orders Only [facility] CHC MED & PEDS 505 [place], [place] [phone] Winifred Fenton MD 505 [place] [address] Social History Tobacco Use Types Packs/Day Years [...] 2:45 PM EST Office Visit [facility] MED & PEDS 505 [place] [address] Winifred Fenton MD 505 [place] [address] documented as of this encounter Visit Diagnoses Not on filedocumented in this encounter Additional Health Concerns Assessment Noted Time PHQ-9 Depression Total Score: 17 024 2:29 PM EDT documented as of this encounter Care Teams Electrical Engineering Drafting Officer Relationship Specialty Start Date End Date Winifred Fenton MD 505 [place] [address] PCP - General Internal Medicine 09/13/17 Ion Cobos, RN 505 [place], [place] [phone] Registered Nurse Family Medicine 01/26/25 Kobe Gilmore 01/26/25 Giovanni Randhawa Associate DirectorCasting And Curing Operator 07/23/23 documented as of this encounter
--- OUTSIDE RECORDS SUMMARY | 2025-03-02 16:29 | XMS_ITS | Encounter Summary ---
Author Organization [facility] Address [address] [place] [address] [place] [address] Phone Care Team Providers Care Manufacturing Plant Manager Name Role Phone Winifred Fenton MD Primary Care Pr ovider Yasmany Richards MD Unavailable MAVIS Juarez@[email or web address] Anthony Oglesby MD Unavailable Encounter Details Date Type Department Care Team (Late st Contact Info) Description 03/08/2021 Procedure Pass [facility] Cardiac US [address] [place] [address] Social History Tobacco Use Types Packs/Day Years [...] Description 03/17/2025 2:30 PM EST Office Visit [facility] Center for Neuro Oncology 32 [facility], 9th Floor, [address] [place] [address] Anthony Oglesby MD [address] [address] [email or web address] 04/01/2025 1:20 PM EST Office Visit [address] [address] Boris Hansen MD [address] [place] [address] [email or web address] 04/01/2025 1:40 PM EST Appointment [address] [address] 04/16/2025 11:15 AM EST Office Visit [facility] Plastic Surgery 45 [facility] 2nd [place] [address] Herminia Mclain MD 75 [place] [address] [email or web address] Scheduled Procedures Name Priority Associated Diagnoses Date/Ti me 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 Visit Diagnoses Not on filedocumented in this encounter Additional Health Concerns Infection Onset Date Last Indicated Resolved Time MRSA 04/09/2021 04/09/2021 04/09/2023 1:21 AM EST CoV-Risk 09/22/2021 09/22/2021 10/03/2021 1:24 AM EDT documented as of this encounter Care Teams Manufacturing Plant Manager Relationship Specialty Start Date End Date Winifred Fenton MD [address] [place] [address] PCP - General Internal Medicine 10/09/17 Yasmany Richards MD STARR@[email or web address] Primary Oncologist Neurology 07/10/1811/19 Anthony Oglesby MD [address] [place] [address] 9 [place] [address] [email or web address] Neurology 11/20/24 documented as of this encounter Additional Source Comments The information contained in this document represents components of the legal health record. It is not the complete legal health record.[facility]
--- OUTSIDE RECORDS SUMMARY | 2025-03-02 16:29 | XMS_ITS | Encounter Summary ---
Author Organization [facility] Address [address] [place] [address] [address] [place] [address] Phone Care Team Providers Care Aemt Name Role Phone Winifred Fenton MD Primary Care Pr ovider Yasmany Richards MD Unavailable MAVIS Juarez@[email or web address].[facility] [place] Oglesby MD Unavailable Encounter Details Date Type Department Care Team (Late st Contact Info) Description 07/07/2024 Procedure Pass [facility] 2 [address] [facility], 2nd [place] [address] Social History Tobacco Use Types Packs/Day Years [...] Center for Neuro Oncology 32 [facility], 9th Floor, [address] [place] [address] [place] Oglesby MD [address] [address] [email or web address] 04/01/2025 1:20 PM EST Office Visit [address] [address] Boris Hansen MD [address] [place] [address] [email or web address] 04/01/2025 1:40 PM EST Appointment [address] [address] 04/16/2025 11:15 AM EST Office Visit [facility] Plastic Surgery [address] [address] Herminia Mclain MD 75 [place] [address] [email or web address] Scheduled Procedures Name Priority Associated Diagnoses Date/Ti me 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 Visit Diagnoses Not on filedocumented in this encounter Care Teams Aemt Relationship Specialty Start Date End Date Winfired Fenton MD [address] [place] [address] PCP - General Internal Medicine 10/09/17 Yasmany Richards MD STARR@[email or web address] Primary Oncologist Neurology 07/10/1811/19 [place] Oglesby MD [address] [place] [address] 9 [place] [address] [email or web address] Neurology 11/20/24 documented as of this encounter Additional Source Comments The information contained in this document represents components of the legal health record. It is not the complete legal health record.[facility]
--- OUTSIDE RECORDS SUMMARY | 2025-03-02 16:30 | XMS_ITS | Encounter Summary ---
Author Organization [facility] Address [address] [facility] [address] [place] [address] Phone Care Team Providers Care Coo & Co Founder Name Role Phone Winifred Fenton MD Primary Care Pr ovider Yasmany Richards MD Unavailable MAVIS Juarez@[email or web address] [place] Oglesby MD Unavailable Reason for Visit * Reason Comments Medication Refill Encounter Details Date Type Department Care Team (Late st Contact Info) Description 01/11/2021 Refill [facility] Neurosurgery [address] [facility], 7th Floor, [address] [place] [address] Alfonso Walker MD, PhD [address] [phone] [email or web address] U Medication Refill Social History Tobacco Use [...] Description 03/17/2025 2:30 PM EST Office Visit [facility] Center for Neuro Oncology 32 [facility], 9th Floor, [address] [place] [address] [place] Oglesby MD 55 [facility] 9 [place] [address] [email or web address] 04/01/2025 1:20 PM EST Office Visit [facility] 243 [facility] 1st [place] [address] Boris Hansen MD [address] [place] [address] [place]@[facility] [facility] 04/01/2025 1:40 PM EST Appointment [facility] [address] [address] 04/16/2025 11:15 AM EST Office Visit [facility] Plastic Surgery [address] [address] Herminia Mclain MD 75 [place] [address] [email or web address] Scheduled Procedures Name Priority Associated Diagnoses Date/Ti [...] documented as of this encounter Care Teams Coo & Co Founder Relationship Specialty Start Date End Date Winifred Fenton MD [address] [place] [address] PCP - General Internal Medicine 10/09/17 Yasmany Richards MD STARR@[email or web address].[place] Primary Oncologist Neurology 07/10/1811/19 [place] Oglesby MD 55 [facility] YA 9 [place] [address] [email or web address] Neurology 11/20/24 documented as of this encounter Additional Source Comments The information contained in this document represents components of the legal health record. It is not the complete legal health record.[facility]
--- OUTSIDE RECORDS SUMMARY | 2025-03-02 16:30 | XMS_ITS | Encounter Summary ---
Author Organization [employer] Address 75 [facility] 7t [place] [address] Care Team Providers Care Basket Turner Name Role Phone Winifred Fenton MD Primary Care Provider [phone] Ion Cobos RN Unavailable [phone] Kobe Gilmore Unavailable Encounter Details Date Type Department Care Team (Latest Contact Info) Description 02/19/2023 Orders Only [facility] CHC MED & PEDS 505 [place], [place] [phone] Winifred Fenton MD 505 [place] [address] Lumbar radiculopathy (Primary Dx); Type 1 neurofibromatosis [...] Description 03/03/2025 2:45 PM EST Office Visit [facility]EDS 505 [place] [address] Winifred Fenton MD 505 [place] [address] documented as of this encounter Visit Diagnoses Diagnosis Lumbar radiculopathy- Primary Thoracic or lumbosacral neuritis or radiculitis, unspecified Type 1 neurofibromatosis (CMS/HCC) (HCC) documented in this encounter Additional Health Concerns Assessment Noted Time PHQ-9 Depression Total Score: 7 05/29/19 23 4:02 PM EST documented as of this encounter Care Teams Basket Turner Relationship Specialty Start Date End Date Winifred Fenton MD 505 [place] [address] PCP - General Internal Medicine 09/13/17 Ion Cobos, RENEE 505 [place] [address] Registered Nurse Family Medicine 01/26/25 Kobe [place]more 01/26/25 Giovanni Randhawa Boatbuilder SupervisorSourcing Specialist 07/23/23 documented as of this encounter
--- OUTSIDE RECORDS SUMMARY | 2025-03-02 16:30 | XMS_ITS | Encounter Summary ---
Author Organization [facility] Address [address] [place] [address] [place] [address] Phone Care Team Providers Care Clinical Data Research Name Role Phone Winifred Fenton MD Primary Care Pr ovider Yasmany Richards MD Unavailable MAVIS Juarez@[email or web address] [place] Oglesby MD Unavailable Encounter Details Date Type Department Care Team (Late st Contact Info) Description 04/06/2020 Procedure Pass [facility] Periop 75 [place] [address] Social History Tobacco Use Types Packs/Day Years [...] Description 03/17/2025 2:30 PM EST Office Visit [facility] Center for Neuro Oncology 32 [facility], 9th Floor, [address] [place] [address] [place] Oglesby MD [address] [address] [email or web address]@[facility] 04/01/2025 1:20 PM EST Office Visit [address] [address] Boris Hansen MD [address] [place] [address] [place]@[facility] 04/01/2025 1:40 PM EST Appointment [address] [address] 04/16/2025 11:15 AM EST Office Visit [facility] Plastic Surgery 45 [facility] 2nd [place] [address] Herminia Mclain MD 75 [place] [address] [email or web address] Scheduled Procedures Name Priority Associated Diagnoses Date/Ti me 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 Visit Diagnoses Not on filedocumented in this encounter Additional Health Concerns Infection Onset Date Last Indicated Resolved Time MRSA 04/09/2021 04/09/2021 04/09/2023 1:21 AM EST CoV-Risk 09/22/2021 09/22/2021 10/03/2021 1:24 AM EDT documented as of this encounter Care Teams Clinical Data Research Relationship Specialty Start Date End Date Winifred Fenton MD [address] [place] [address] PCP - General Internal Medicine 10/09/17 Yasmany Richards MD STARR@[facility].[place] Primary Oncologist Neurology 07/10/1811/19 [place] Oglesby MD [address] [place] [address] 9 [place] [address] [email or web address] Neurology 11/20/24 documented as of this encounter Additional Source Comments The information contained in this document represents components of the legal health record. It is not the complete legal health record.[facility]
--- OUTSIDE RECORDS SUMMARY | 2025-03-02 16:30 | XMS_ITS ---
Author Organization [employer] Address [address] [place] [address] 7t [place] [address] Care Team Providers Care Diesel Maintenance Technician Name Role Phone Winifred Fenton MD Primary Care Provider Ion Cobos RN Unavailable [phone] Kobe Gilmore Unavailable [facility] Status:Outreach In Progress (Enrolling) Start date:01/26/2025 Enrollment reason:ADT Feed Overview ED- Pt went to [facility] ED on 01/25/25. Case Team Name Relationship Phone Kobe Gilmore(Responsible Staff) [phone] Continued Care and Services Coordination
--- OUTSIDE RECORDS SUMMARY | 2025-03-02 16:30 | XMS_ITS | Encounter Summary ---
Author Organization [facility] Address [address] [place] [address] [place] [address] Phone Care Team Providers Care Data Capture Specialist Name Role Phone Winifred Fenton MD Primary Care Pr ovider Yasmany Richards MD Unavailable MAVIS [email or web address] Anthony Oglesby MD Unavailable Encounter Details Date Type Department Care Team (Late st Contact Info) Description 06/14/2022 Procedure Pass [facility], [address] [address] Social History Tobacco Use Types Packs/Day Years [...] Description 03/17/2025 2:30 PM EST Office Visit [facility] Oncology [address] [facility], 9th Floor, [address] [place] [address] Anthony Oglesby MD [address] [address] [email or web address] 04/01/2025 1:20 PM EST Office Visit [address] [address] Boris Hansen MD [address] [place] [address] [email or web address] 04/01/2025 1:40 PM EST Appointment [address] [address] 04/16/2025 11:15 AM EST Office Visit [facility] Plastic Surgery 45 [facility] 2nd [place] [address] Herminia Mclain MD 75 [place] [address] [email or web address] Scheduled Procedures Name Priority Associated Diagnoses Date/Ti me 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 Visit Diagnoses Not on filedocumented in this encounter Additional Health Concerns Infection Onset Date Last Indicated Resolved Time MRSA 04/09/2021 04/09/2021 04/09/2023 1:21 AM EST documented as of this encounter Care Teams Data Capture Specialist Relationship Specialty Start Date End Date Winifred Fenton MD [address] [place] [address] PCP - General Internal Medicine 10/09/17 Yasmany Richards MD [email or web address] Primary Oncologist Neurology 07/10/1811/19 Anthony Oglesby MD [address] [place] [address] [email or web address] Neurology 11/20/24 documented as of this encounter Additional Source Comments The information contained in this document represents components of the legal health record. It is not the complete legal health record.[facility]
--- OUTSIDE RECORDS SUMMARY | 2025-03-02 16:30 | XMS_ITS ---
Author Organization [employer] Address [address] [place] [address] 7t [place] [address] Care Team Providers Care Regional Director Of Finance Name Role Phone Winifred Fenton MD Primary Care Provider [phone] Ion Cobos RN Unavailable [phone] Kobe Gilmore Unavailable CM Complex Status:Outreach In Progress (Enrolling) Start date:01/26/2025 Enrollment reason:ADT Feed Overview ED- Pt [facility]. Case Team Name Relationship Phone Ion Cobos RN(Responsible Staff) Registered Larry polanco [phone] Continued Care and Services Coordination
--- OUTSIDE RECORDS SUMMARY | 2025-03-02 16:30 | XMS_ITS | Encounter Summary ---
Author Organization [facility] Address [address] [place] [address] [address] [place] [address] Phone Care Team Providers Care Addictions Therapist Name Role Phone Winifred Fenton MD Primary Care Pr ovider Yasmany Richards MD Unavailable MAVIS [email or web address] Anthony Oglesby MD Unavailable Encounter Details Date Type Department Care Team (Late st Contact Info) Description 07/07/2024 Procedure Pass [facility] Main [place] [address] [place] [address] Social History Tobacco Use Types Packs/Day Years [...] Description 03/17/2025 2:30 PM EST Office Visit [facility] Center for Neuro Oncology [address] [facility], 9th Floor, [address] [place] [address] Anthony Oglesby MD [address] [address] [email or web address] 04/01/2025 1:20 PM EST Office Visit [address] [address] Boris Hansen MD [address] [place] [address] [email or web address] 04/01/2025 1:40 PM EST Appointment [address] [address] 04/16/2025 11:15 AM EST Office Visit [facility] Plastic Surgery [address] [address] Herminia Mclain MD 75 [place] [address] [email or web address] Scheduled Procedures Name Priority Associated Diagnoses Date/Ti me 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 Visit Diagnoses Not on filedocumented in this encounter Care Teams Addictions Therapist Relationship Specialty Start Date End Date Winifred Fenton MD [address] [place] [address] PCP - General Internal Medicine 10/09/17 Yasmany Richards MD [email or web address] Primary Oncologist Neurology 07/10/1811/19 Anthony Oglesby MD [address] [place] [address] [email or web address] Neurology 11/20/24 documented as of this encounter Additional Source Comments The information contained in this document represents components of the legal health record. It is not the complete legal health record.[facility]
--- OUTSIDE RECORDS SUMMARY | 2025-03-02 16:30 | XMS_ITS | Encounter Summary ---
Author Organization [email or web address] Address 75 [facility] 7t [place] [address] Care Team Providers Care Port Traffic Manager Name Role Phone Winifred Fenton MD Primary Care Provider [phone] Ion Cobos RN Unavailable Kobe Gilmore Unavailable Encounter Details Date Type Department Care Team (Late Contact Info) Description 10/11/2023 Orders Only [facility] [address] [place] [address] Provider, MD Chantal Social History Tobacco Use [...] the past 12 months, has t he [facility], gas, oil or water [employer] threatened to shut off services in your [...] 2:45 PM EST Office Visit [facility] MED & PEDS 505 [place] [address] Winifred Fenton MD 505 [place] [address] documented as of this encounter Procedures Procedure Name Priority Date/Time Associated Diagnosis Comments MRI BRAIN W WO CONTRAST Routine 10/09/2023 8:38 AM EDT documented in this encounter Results * MRI BRAIN W WO CONTRAST (10/09/2023 8:38 AM EDT) Anatomical Region Laterality Modality Magnetic Resonan ce Historical Provider MD TERRELL MRI PROCEDURES Final Result documented in this encounter Visit Diagnoses Not on filedocumented in this encounter Additional Health Concerns Assessment Noted Time PHQ-9 Depression Total Score: 7 05/29/19 23 4:02 PM EST documented as of this encounter Care Teams Port Traffic Manager Relationship Specialty Start Date End Date Winifred Fenton MD 505 [place] [address] PCP - General Internal Medicine 09/13/17 Ion Cobos, RN 505 [place] [address] Registered Nurse Family Medicine 01/26/25 Kobe Gilmore 01/26/25 Giovanni Randhawa Director ItInstrument Technician Apprentice 07/23/23 documented as of this encounter
--- OUTSIDE RECORDS SUMMARY | 2025-03-02 16:30 | XMS_ITS | Encounter Summary ---
Author Organization [facility] Address [address] [place] [address] [place] [address] Phone Care Team Providers Care Materials Management Supervisor Name Role Phone Winifred Fenton MD Primary Care Pr ovider Yasmany Richards MD Unavailable MAVIS [email or web address] Anthony Oglesby MD Unavailable Encounter Details Date Type Department Care Team (Late st Contact Info) Description 06/16/2020 Procedure Pass [facility] [place] [address] [place] [address] Social History Tobacco Use Types Packs/Day Years [...] 32 [facility], 9th Floor, [address] [place] [address] Anthony Oglesby MD [address] [address] [email or web address] 04/01/2025 1:20 PM EST Office Visit [address] [address] Boris Hansen MD [address] [place] [address] [email or web address] 04/01/2025 1:40 PM EST Appointment [address] [address] 04/16/2025 11:15 AM EST Office Visit [facility] Plastic Surgery 45 [facility] 2nd [place] [address] Herminia Mclain MD 75 [place] [address] [email or web address] Scheduled Procedures Name Priority Associated Diagnoses Date/Ti me 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 Visit Diagnoses Not on filedocumented in this encounter Additional Health Concerns Infection Onset Date Last Indicated Resolved Time MRSA 04/09/2021 04/09/2021 04/09/2023 1:21 AM EST CoV-Risk 09/22/2021 09/22/2021 10/03/2021 1:24 AM EDT documented as of this encounter Care Teams Materials Management Supervisor Relationship Specialty Start Date End Date Winifred Fenton MD [address] [place] [address] PCP - General Internal Medicine 10/09/17 Yasmany Richards MD [email or web address] Primary Oncologist Neurology 07/10/1811/19 Anthony Oglesby MD [address] [place] [address] 9 [place] [address] [email or web address] Neurology 11/20/24 documented as of this encounter Additional Source Comments The information contained in this document represents components of the legal health record. It is not the complete legal health record.[facility]
--- OUTSIDE RECORDS SUMMARY | 2025-03-02 16:30 | XMS_ITS | Encounter Summary ---
Author Organization [facility] Address [address] [place] [address] [place] [address] Phone Care Team Providers Care Repairer Helper Name Role Phone Winifred Fenton MD Primary Care Pr ovider Yasmany Richards MD Unavailable MAVIS [email or web address] Anthony Oglesby MD Unavailable Encounter Details Date Type Department Care Team (Late st Contact Info) Description 02/21/2022 Procedure Pass [facility] [place] [place] [address] [place] [address] Social History Tobacco Use Types Packs/Day Years [...] Description 03/17/2025 2:30 PM EST Office Visit [facility] for Neuro Oncology 32 [facility], 9th Floor, [address] [place] [address] Anthony Oglesby MD [address] [address] [email or web address] 04/01/2025 1:20 PM EST Office Visit [address] [address] Boris Hansen MD [address] [place] [address] [email or web address] 04/01/2025 1:40 PM EST Appointment [address] [address] 04/16/2025 11:15 AM EST Office Visit [facility] Plastic Surgery 45 [facility] 2nd [place] [address] Herminia Mclain MD 75 [place] [address] [email or web address] Scheduled Procedures Name Priority Associated Diagnoses Date/Ti me 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 Visit Diagnoses Not on filedocumented in this encounter Additional Health Concerns Infection Onset Date Last Indicated Resolved Time MRSA 04/09/2021 04/09/2021 04/09/2023 1:21 AM EST documented as of this encounter Care Teams Repairer Helper Relationship Specialty Start Date End Date iWnifred Fenton MD [address] [place] [address] PCP - General Internal Medicine 10/09/17 Yasmany Richards MD [email or web address] Primary Oncologist Neurology 07/10/1811/19 Anthony Oglesby MD [address] [place] [address] 9 [place] [address] [email or web address] Neurology 11/20/24 documented as of this encounter Additional Source Comments The information contained in this document represents components of the legal health record. It is not the complete legal health record.[facility]
--- OUTSIDE RECORDS SUMMARY | 2025-03-02 16:30 | XMS_ITS | Encounter Summary ---
Author Organization [employer] Address [address] [facility] 7t [place] [address] Care Team Providers Care Sales Agent Name Role Phone Winifred Fenton MD Primary Care Provider [phone] Ion Cobos RN Unavailable [phone] Kobe Gilmore Unavailable Reason for Visit * Reason Comments Care Coordination C3CM/W Kobe tao, outreach #[id number] Encounter Details Date Type Department Care Team (Latest Contact Info) Description 02/27/2025 Patient Outreach [facility] MEDICINE [address] [place] [address] Winifred Fenton MD 505 [place] [address] Care Coordination (C3CM/CHW Kobe Gilmore outreach #[id number] ) Social History Tobacco Use Types Packs/Day Years [...] as of this encounter Progress Notes * Kobe Gilmore - 02/27/2025 2:52 PM EDT CHW Kobe Gilmore, placed outbound call to patient to introduce C3 Complex Care Program / SDOH support services. No answer at this time. CHW LVM introducing herself from [facility] CM Department with CHW's name, department and direct contact number requesting call back. Will re-attempt to contact within 2 days. and address not confirmed. documented in this encounter Plan of Treatment Upcoming Encounters Date Type Department Care Team (Late st Contact Info) Description 03/03/2025 2:45 PM EST Office Visit [facility] MED & PEDS [address] [place] [address] Winifred Fenton MD 505 [place], [place] [phone] documented as of this encounter Visit Diagnoses Not on filedocumented in this encounter Additional Health Concerns Assessment Noted Time PHQ-9 Depression Total Score: 17 024 2:29 PM EDT documented as of this encounter Care Teams Sales Agent Relationship Specialty Start Date End Date Winifred Fenton MD 505 [place] [address] PCP - General Internal Medicine 09/13/17 Ion Cobos, RENEE 505 [place] [address] Registered Nurse Family Medicine 01/26/25 Kobe Gilmore 01/26/25 Giovanni Randhawa Wildlife Refuge ManagerHead Coach 07/23/23 documented as of this encounter
--- OUTSIDE RECORDS SUMMARY | 2025-03-02 16:30 | XMS_ITS | Encounter Summary ---
Author Organization [facility] Address [address] [facility] [address] [place] [address] Phone Care Team Providers Care Nail Making Machine Setter Name Role Phone Winifred Fenton MD Primary Care Pr ovider Yasmany Richards MD Unavailable MAVIS [email or web address] Anthony Oglesby MD Unavailable Encounter Details Date Type Department Care Team (Late st Contact Info) Description 12/15/2020 Procedure Pass [facility] CT, [place] [address] [facility], 2nd Floor, [address] [place] [address] Social History Tobacco Use Types Packs/Day Years [...] Description 03/17/2025 2:30 PM EST Office Visit [facility] Center for Neuro Oncology [address] [facility], 9th Floor, [address] [place] [address] Anthony Oglesby MD [address] [address] [email or web address] 04/01/2025 1:20 PM EST Office Visit [address] [address] Boris Hansen MD [address] [place] [address] [email or web address] 04/01/2025 1:40 PM EST Appointment [address] [address] 04/16/2025 11:15 AM EST Office Visit [facility] Plastic Surgery 45 [facility] 2nd [place] [address] Herminia Mclain MD 75 [place] [address] [email or web address] Scheduled Procedures Name Priority Associated Diagnoses Date/Ti me 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 Visit Diagnoses Not on filedocumented in this encounter Additional Health Concerns Infection Onset Date Last Indicated Resolved Time MRSA 04/09/2021 04/09/2021 04/09/2023 1:21 AM EST CoV-Risk 09/22/2021 09/22/2021 10/03/2021 1:24 AM EDT documented as of this encounter Care Teams Nail Making Machine Setter Relationship Specialty Start Date End Date Winifred Fenton MD [address] [place] [address] PCP - General Internal Medicine 10/09/17 Yasmany Richards MD [email or web address] Primary Oncologist Neurology 07/10/1811/19 Anthony Oglesby MD 55 [facility] 9 [place] [address] [email or web address] Neurology 11/20/24 documented as of this encounter Additional Source Comments The information contained in this document represents components of the legal health record. It is not the complete legal health record.[facility]
--- OUTSIDE RECORDS SUMMARY | 2025-03-02 16:30 | XMS_ITS | Encounter Summary ---
Author Organization [employer] Address 75 [facility] 7t [place] [address] Care Team Providers Care Rrt Name Role Phone Winifred Fenton MD Primary Care Provider Ion Cobos RN Unavailable [phone] Kobe Gilmore Unavailable Encounter Details Date Type Department Care Team (Latest Contact Info) Description 03/21/2023 Orders Only [facility] MED & PEDS [address] [place], [place] [phone] Winifred Fenton MD 505 [place] [address] Type 1 neurofibromatosis (CMS/HCC) (Primary Dx); Lumbar [...] 2:45 PM EST Office Visit [facility] MED & PEDS [address] [place] [address] Winifred Fenton MD [address] [place] [address] documented as of this encounter Visit Diagnoses Diagnosis Type 1 neurofibromatosis (CMS/HCC) (HCC)- Primary Lumbar radiculopathy Thoracic or lumbosacral neuritis or radiculitis, unspecified documented in this encounter Additional Health Concerns Assessment Noted Time PHQ-9 Depression Total Score: 7 05/29/19 23 4:02 PM EST documented as of this encounter Care Teams Rrt Relationship Specialty Start Date End Date Winifred Fenton MD 505 [place] [address] PCP - General Internal Medicine 09/13/17 Ion Cobos, RENEE 505 [place] [address] Registered Nurse Family Medicine 01/26/25 Kobe Gilmore 01/26/25 Giovanni Randhawa Door AttendantGps Field Data Collector 07/23/23 documented as of this encounter
--- OUTSIDE RECORDS SUMMARY | 2025-03-02 16:30 | XMS_ITS | Clinical Summary ---
Author Organization [facility] Address [address] [place] [address] Care Team Providers Care Radiation Monitor Name Role Phone Unavailable Primary Care Provider [...] chest pain 11/03/2017 Overview (11/03/2017): 08/29/17 - [facility] Cardiology: c/o random chest discomfort [...] needs further cardiac work-up. Asthma 10/13/2017 Overview (10/13/2017): 10/03/17 - Maria Esther at [facility] ED c/o cp, sob, and nonproductive cough . O2 sat 93%. Treated with Albuterol x 3 and Prednisone in ED. CRX neg. Discharged with Albuterol and prednisone 20 mg BID x 5 days. Beta thalassemia minor; electrophoresis 07/23/17 07/23/2017 Tobacco abuse disorder 01/19/2017 Scoliosis 01/19/2017 Dermatitis 06/28/2016 Hearing deficit 06/28/2016 Type 1 neurofibromatosis (HC C) Being followed at [facility] at the NF clinic. 12/02/2014 Overview (09/11/2017): Pt is being followed by Dr. Yasmany Richards at [facility] for neurofibromatosis 01/30/17 NF clinic - potential new treatment for plexiform neurofibromas was discussed with pt (selumetinib). Dr. Richards will try to get off label approval for this therapy. Pt has F/U appt in 6 months and had an appt for ECHO on 05/16/17 to determine whether he can tolerate this treatment . 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 Waiting for non-FDA approved drug (Selumetinib) for get approved vs for the NF Binimetinib trial to open at [facility] (within several months). Recommend increasing Duloxetine for his ongoing depression and back pain. Will order MRI to look for tumors of R middle finger. F/U 3 mos. 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 S/p multiple debulking surgeries left facial NF most recent 05/18/[address] [facility] Resolved Problems Problem Noted Date Diagnosed [...] Plan of Treatment Not on file Insurance [facility] [address] [facility] [place] [address] [facility]
--- OUTSIDE RECORDS SUMMARY | 2025-03-02 16:30 | XMS_ITS | Encounter Summary ---
Author Organization [employer] Address [address] [facility] 7t [place] [address] Care Team Providers Care High School Professional Name Role Phone Winifred Fenton MD Primary Care Provider Ion Cobos RN Unavailable [phone] Kobe Gilmore Unavailable Reason for Visit * Reason Onset Date Comments Chart Prep 03/02/2025 Encounter Details Date Type Department Care Team ([facility] st Contact Info) Description 03/02/2025 Telephone [facility] MED & PEDS [address] [place], [place] [phone] Winifred Fenton MD [address] [place], [place] [phone] Chart Prep Social History Tobacco Use Types Packs/Day Years [...] encounter Miscellaneous Notes * Telephone Encounter - Luz Do [place] - 03/02/2025 11:41 AM EST Chart Prep Labs: not done Images: done Referrals: complete Vaccines due: Covid, Hep B, and HPV Screenings: STI screening and PISQ Overdue care gaps: SBIRT, SDOH, PHQ-9, Oral health screening, Disability screen, and Tobacco documented in this encounter Plan of Treatment Upcoming Encounters Date Type Department Care Team (Late st Contact Info) Description 03/03/2025 2:45 PM EST Office Visit [facility] MED & PEDS [address] [place] [address] Winifred Fenton MD 505 [place] [address] documented as of this encounter Visit Diagnoses Not on filedocumented in this encounter Additional Health Concerns Assessment Noted Time PHQ-9 Depression Total Score: 17 024 2:29 PM EDT documented as of this encounter Care Teams High School Professional Relationship Specialty Start Date End Date Winifred Fenton MD 505 [place] [address] PCP - General Internal Medicine 09/13/17 Ion Cobos, RENEE 505 [place], [place] [phone] Registered Nurse Family Medicine 01/26/25 Kobe Gilmore 01/26/25 Giovanni Randhawa Echo Vascular TechPewter Fabricator 07/23/23 documented as of this encounter
--- OUTSIDE RECORDS SUMMARY | 2025-03-02 16:30 | XMS_ITS | Encounter Summary ---
Author Organization [facility] Address [address] [place] [address] [place] [address] Phone Care Team Providers Care Dietary Aide Teacher Name Role Phone Ania Wilburn MD Primary Care P rovider Nadege Rutledge PA-C Primary Care Provider U Winifred Parish MD Primary Care Pr ovider Yasmany Richards MD Unavailable MAVIS [email or web address] Anthony Oglesby MD Unavailable Reason for Referral * MRI/CAT Scan - Closed Specialty Diagnoses / Procedures Referred By Ping hunter Referred To Contact Radiology Diagnoses Transplanted organ and tissue status Procedures CT Angio 3D Reconstruction Head Jacinto Villalba MD Phone: tel: fax: mailto:[email or web address], located [facility] Referral ID Status Reason Start Date Expiration Date Visits Re quested Visits Authorized [id number] Closed 02/04/2015 08/03/2015 1 1 Encounter Details Date Type Department Care Team (Late st Contact Info) Description 02/04/2015 Transcribe Orders [facility] 75 [place] [address] [place] [address] [place] [address] [place] [address] [email or web address], located [facility] Transplanted organ and tissue status (Primary Dx) [...] [facility] [address] [facility], 9th Floor, [address] [place] [address] Anthony Oglesby MD [address] [address] [email or web address] 04/01/2025 1:20 PM EST Office Visit [address] [address] Boris Hansen MD [address] [place] [address] [email or web address] 04/01/2025 1:40 PM EST Appointment [facility] [address] [address] 04/16/2025 11:15 AM EST Office Visit [facility] Plastic Surgery [address] [address] Herminia Mclain MD 75 [place] [address] [email or web address] Pending Results Name Type Priority Associated Diagnoses Date /Time CT Angio 3D Reconstruction Head Imaging Routine Transplanted organ and tissue status 02/04/2015 3:28 PM EDT Scheduled Orders Name Type Priority Associated Diagnoses Orde r Schedule CT Angio 3D Reconstruction Head Imaging Routine Transplanted organ and tissue status Expected: 02/04/2015, Expires: 2016 Scheduled Procedures Name Priority Associated Diagnoses Date/Ti me 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 Visit Diagnoses Diagnosis Transplanted organ and tissue status- Primary documented in this encounter Additional Health Concerns Infection Onset Date Last Indicated Resolved Time MRSA 04/09/2021 04/09/2021 04/09/2023 1:21 AM EST CoV-Risk 09/22/2021 09/22/2021 10/03/2021 1:24 AM EDT documented as of this encounter Care Teams Dietary Aide Teacher Relationship Specialty Start Date End Date Ania Wilburn MD [address] [facility] 205 [place] [address] PCP - General Internal Medicine 07/27/15 12/14/16 Nadege Rutledge PA-C PCP - General Internal Medicine 12/15/16 10/08/17 Winifred Fenton MD 230 [facility] 1 [place] [address] PCP - General Internal Medicine 10/09/17 Yasmany Richards MD [email or web address] Primary Oncologist Neurology 07/10/1811/19 Anthony Oglesby MD 55 [facility] 9 [place] [address] [email or web address] Neurology 11/20/24 documented as of this encounter Additional Source Comments The information contained in this document represents components of the legal health record. It is not the complete legal health record.[facility]
--- OUTSIDE RECORDS SUMMARY | 2025-03-02 16:30 | XMS_ITS | Encounter Summary ---
Author Organization [facility] Address [address] [facility] [address] [place] [address] Phone Care Team Providers Care Cheese Maker Name Role Phone Winifred Fenton MD Primary Care Pr ovider Yasmany Richards MD Unavailable MAVIS Juarez@[email or web address] Anthony Oglesby MD Unavailable Encounter Details Date Type Department Care Team (Late st Contact Info) Description 10/11/2017 Procedure Pass [facility] [address] [place] [address] Social History Tobacco Use Types Packs/Day Years [...] Description 03/17/2025 2:30 PM EST Office Visit [facility] 32 [facility], 9th Floor, [address] [place] [address] Anthony Oglesby MD [address] [address] [email or web address] 04/01/2025 1:20 PM EST Office Visit [address] [address] Boirs Hansen MD 243 [place] [address] [place]@[facility] 04/01/2025 1:40 PM EST Appointment [address] [address] 04/16/2025 11:15 AM EST Office [facility] Plastic Surgery 45 [facility] 2nd [place] [address] Herminia Mclain MD 75 [place] [address] [email or web address] Scheduled Procedures Name Priority Associated Diagnoses Date/Ti me 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 Visit Diagnoses Not on filedocumented in this encounter Additional Health Concerns Infection Onset Date Last Indicated Resolved Time MRSA 04/09/2021 04/09/2021 04/09/2023 1:21 AM EST CoV-Risk 09/22/2021 09/22/2021 10/03/2021 1:24 AM EDT documented as of this encounter Care Teams Cheese Maker Relationship Specialty Start Date End Date Winifred Fenton MD [address] [place] [address] PCP - General Internal Medicine 10/09/17 Yasmany Richards MD STARR@[email or web address] Primary Oncologist Neurology 07/10/1811/19 Anthony Oglesby MD [address] [place] [address] 9 [place] [address] [email or web address] Neurology 11/20/24 documented as of this encounter Additional Source Comments The information contained in this document represents components of the legal health record. It is not the complete legal health record.[facility]
--- OUTSIDE RECORDS SUMMARY | 2025-03-02 16:30 | XMS_ITS | Encounter Summary ---
Author Organization [employer] Address [address] [facility] 7t [place] [address] Care Team Providers Care Parts Sales Manager Name Role Phone Winifred Fenton MD Primary Care Provider Ion Cobos RN Unavailable [phone] Kobe Gilmore Unavailable Reason for Visit * Reason Onset Date Comments FYI 08/24/2023 Encounter Details Date Type Department Care Team ([facility] st Contact Info) Description 08/24/2023 Telephone [facility] 505 [place], [place] [phone] Winifred Fenton MD 505 [place], [place] [phone] FYI Social History Tobacco Use Types Packs/Day [...] - 08/24/2023 11:37 AM EDT TC from [facility] calling to inform Pt will be getting discharge from home physical therapy today 08/24/23. documented in this encounter Plan of Treatment Upcoming Encounters Date Type Department Care Team (Late st Contact Info) Description 03/03/2025 2:45 PM EST Office Visit [facility] 505 [place] [address] Winifred Fenton MD 505 [place] [address] documented as of this encounter Visit Diagnoses Not on filedocumented in this encounter Additional Health Concerns Assessment Noted Time PHQ-9 Depression Total Score: 7 05/29/19 23 4:02 PM EST documented as of this encounter Care Teams Parts Sales Manager Relationship Specialty Start Date End Date Winifred Fenton MD 505 [place] [address] PCP - General Internal Medicine 09/13/17 Ion Cobos, RN [address] [place] [address] Registered Nurse Family Medicine 01/26/25 Kobe Gilmore 01/26/25 Giovanni Randhawa Delinquent Tax CollectorProfessor Of Religious Studies 07/23/23 documented as of this encounter
--- OUTSIDE RECORDS SUMMARY | 2025-03-02 16:30 | XMS_ITS | Encounter Summary ---
Author Organization [facility] Address [address] [place] [address] [place] [address] Phone Care Team Providers Care Vendor Management Specialist Name Role Phone Winifred Fenton MD Primary Care Pr ovider Yasmany Richards MD Unavailable MAVIS Juarez@[email or web address] Anthony Oglesby MD Unavailable Encounter Details Date Type Department Care Team (Late st Contact Info) Description 11/30/2020 Procedure Pass [facility] Card[facility] US [address] [place] [address] Social History Tobacco Use Types Packs/Day Years [...] [facility] 32 [facility], 9th Floor, [address] [place] [address] Anthony Oglesby MD [address] [address] [email or web address] 04/01/2025 1:20 PM EST Office Visit [address] [address] Boris Hansen MD [address] [place] [address] [place]@[facility] 04/01/2025 1:40 PM EST Appointment [address] [address] 04/16/2025 11:15 AM EST Office Visit [facility] Plastic Surgery 45 [facility] 2nd [place] [address] Herminia Mclain MD 75 [place] [address] [email or web address] Scheduled Procedures Name Priority Associated Diagnoses Date/Ti me 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 Visit Diagnoses Not on filedocumented in this encounter Additional Health Concerns Infection Onset Date Last Indicated Resolved Time MRSA 04/09/2021 04/09/2021 04/09/2023 1:21 AM EST CoV-Risk 09/22/2021 09/22/2021 10/03/2021 1:24 AM EDT documented as of this encounter Care Teams Vendor Management Specialist Relationship Specialty Start Date End Date Winifred Fenton MD [address] [place] [address] PCP - General Internal Medicine 10/09/17 Yasmany Richards MD [email or web address] Primary Oncologist Neurology 07/10/1811/19 Anthony Oglesby MD [address] [place] [address] 9 [place] [address] MAK@[email or web address] Neurology 11/20/24 documented as of this encounter Additional Source Comments The information contained in this document represents components of the legal health record. It is not the complete legal health record.[facility]
--- OUTSIDE RECORDS SUMMARY | 2025-03-02 16:30 | XMS_ITS | Encounter Summary ---
Author Organization [facility] Address [address] [place] [address] [place] [address] Phone Care Team Providers Care Guest Service Manager Name Role Phone Ania Wilburn MD Primary Care P rovider Nadege Rutledge PA-C Primary Care Provider U Winifred Parish MD Primary Care Pr ovider Yasmany Richards MD Unavailable MAVIS Juarez@[email or web address] Anthony Oglesby MD Unavailable Encounter Details Date Type Department Care Team (Late st Contact Info) Description 03/23/[address] [facility] EKG 70 [place] [address] Unknown, Unknown, Social History Tobacco Use Types [...] Description 03/17/2025 2:30 PM EST Office [facility] 32 [facility], 9th Floor, [address] [place] [address] Anthony Oglesby MD 55 [facility] 9 [place] [address] [email or web address] 04/01/2025 1:20 PM EST Office Visit [facility] [address] [address] Boris Hansen MD 243 [place] [address] [place]@[email or web address] 04/01/2025 1:40 PM EST Appointment [facility] [address] [address] 04/16/2025 11:15 AM EST Office Visit [facility] Plastic Surgery [address] [address] Herminia Mclain MD 75 [place] [address] [email or web address] Scheduled Procedures Name Priority Associated Diagnoses Date/Ti me 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 Visit Diagnoses Not on filedocumented in this encounter Additional Health Concerns Infection Onset Date Last Indicated Resolved Time MRSA 04/09/2021 04/09/2021 04/09/2023 1:21 AM EST CoV-Risk 09/22/2021 09/22/2021 10/03/2021 1:24 AM EDT documented as of this encounter Care Teams Guest Service Manager Relationship Specialty Start Date End Date Ania Wilburn MD [address] [address] PCP - General Internal Medicine 07/27/15 12/14/16 Nadege Rutledge PA-C PCP - General Internal Medicine 12/15/16 10/08/17 Winifred Fenton MD [address] [place] [address] PCP - General Internal Medicine 10/09/17 Yasmany Richards MD [email or web address] Primary Oncologist Neurology 07/10/1811/19 Anthony Oglesby MD [address] [place] [address] [email or web address] Neurology 11/20/24 documented as of this encounter Additional Source Comments The information contained in this document represents components of the legal health record. It is not the complete legal health record.[facility]
--- OUTSIDE RECORDS SUMMARY | 2025-03-02 16:30 | XMS_ITS | Encounter Summary ---
Author Organization [facility] Address [address] [place] [address] [place] [address] Phone Care Team Providers Care Park Superintendent Name Role Phone Winifred Fenton MD Primary Care Pr ovider Yasmany Richards MD Unavailable MAVIS Juarez@[email or web address] Anthony Oglesby MD Unavailable Encounter Details Date Type Department Care Team (Late st Contact Info) Description 03/13/2022 Procedure Pass [facility] PERIOPERATIVE DEPT [address] [place] [phone] Social History Tobacco Use Types Packs/Day Years [...] Description 03/17/2025 2:30 PM EST Office Visit [facility] 32 [facility], 9th Floor, [address] [place] [address] Anthony Oglesby MD 55 [facility] 9 [place] [address] [email or web address] 04/01/2025 1:20 PM EST Office Visit [address] [address] Boris Hansen MD [address] [place] [address] [place]@[facility] 04/01/2025 1:40 PM EST Appointment [address] [address] 04/16/2025 11:15 AM EST Office Visit [facility] Plastic Surgery 45 [facility] 2nd [place] [address] Herminia Mclain MD 75 [place] [address] [email or web address] Scheduled Procedures Name Priority Associated Diagnoses Date/Ti me 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 Visit Diagnoses Not on filedocumented in this encounter Additional Health Concerns Infection Onset Date Last Indicated Resolved Time MRSA 04/09/2021 04/09/2021 04/09/2023 1:21 AM EST documented as of this encounter Care Teams Park Superintendent Relationship Specialty Start Date End Date Winifred Fenton MD [address] [address] PCP - General Internal Medicine 10/09/17 Yasmany Richards MD STARR@[email or web address] Primary Oncologist Neurology 07/10/1811/19 Anthony Oglesby MD [address] [place] [address] 9 [place] [address] MAK@[facility] Neurology 11/20/24 documented as of this encounter Additional Source Comments The information contained in this document represents components of the legal health record. It is not the complete legal health record.[facility]
--- OUTSIDE RECORDS SUMMARY | 2025-03-02 16:30 | XMS_ITS | Encounter Summary ---
Author Organization [facility] Address [address] [place] [address] [place] [address] Phone Care Team Providers Care Icer Hand Name Role Phone Winifred Fenton MD Primary Care Pr ovider Yasmany Richards MD Unavailable MAVIS Juarez@[facility] Anthony Oglesby MD Unavailable Encounter Details Date Type Department Care Team (Late st Contact Info) Description 02/26/2024 Procedure Pass [facility] [place] 32 [facility], 6th [place] [address] Social History Tobacco Use Types Packs/Day Years [...] of Assessment Author No 11/23/2015 9:40 AM EDLamine De La Cruz MD * Patient has serious difficulty dressing [...] Description 03/17/2025 2:30 PM EST Office Visit [facility] 32 [facility], 9th Floor, [address] [place] [address] Anthony Oglesby MD [address] [address] [email or web address] 04/01/2025 1:20 PM EST Office Visit [address] [address] Boris Hansen MD [address] [place] [address] [email or web address] 04/01/2025 1:40 PM EST Appointment [address] [address] 04/16/2025 11:15 AM EST Office Visit [facility] Plastic Surgery [address] [address] Herminia Mclain MD [address] [place] [address] [email or web address] Scheduled Procedures Name Priority Associated Diagnoses Date/Ti me 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 Visit Diagnoses Not on filedocumented in this encounter Care Teams Icer Hand Relationship Specialty Start Date End Date Winifred Fenton MD [address] [place] [address] PCP - General Internal Medicine 10/09/17 Yasmany Richards MD [email or web address] Primary Oncologist Neurology 07/10/1811/19 Anthony Oglesby MD [address] [place] [address] 9 [place] [address] [email or web address] Neurology 11/20/24 documented as of this encounter Additional Source Comments The information contained in this document represents components of the legal health record. It is not the complete legal health record.[facility]
--- OUTSIDE RECORDS SUMMARY | 2025-03-02 16:30 | XMS_ITS | Encounter Summary ---
Author Organization [facility] Address [address] [place] [address] [place] [address] Phone Care Team Providers Care Shoe Ironer Name Role Phone Winifred Fenton MD Primary Care Pr ovider Yasmany Richards MD Unavailable MAVIS Juarez@[facility] Anthony Oglesby MD Unavailable Encounter Details Date Type Department Care Team (Late st Contact Info) Description 07/29/2020 Procedure Pass [facility] Periop 75 [place] [address] Social History Tobacco Use Types Packs/Day Years [...] Description 03/17/2025 2:30 PM EST Office Visit [facility] Oncology 32 [facility], 9th Floor, [address] [place] [address] Anthony Oglesby MD [address] [address] [email or web address]@[facility] 04/01/2025 1:20 PM EST Office Visit [address] [address] Boris Hansen MD [address] [place] [address] [place]@[facility] 04/01/2025 1:40 PM EST Appointment [address] [address] 04/16/2025 11:15 AM EST Office Visit [facility] Plastic Surgery 45 [facility] 2nd [place] [address] Herminia Mclain MD 75 [place] [address] [email or web address] Scheduled Procedures Name Priority Associated Diagnoses Date/Ti me 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 Primary Oncologist Neurology 07/10/1811/19 Anthony Oglesby MD [address] [place] [address] 9 [place] [address] MAK@[email or web address] Neurology 11/20/24 documented as of this encounter Additional Source Comments The information contained in this document represents components of the legal health record. It is not the complete legal health record.[facility]
--- OUTSIDE RECORDS SUMMARY | 2025-03-02 16:30 | XMS_ITS | Encounter Summary ---
Author Organization [facility] Address [address] [place] [address] [place] [address] Phone Care Team Providers Care Wire Winder Name Role Phone Winifred Fenton MD Primary Care Pr ovider Yasmany Richards MD Unavailable MAVIS Juarez@[facility] Anthony Oglesby MD Unavailable Encounter Details Date Type Department Care Team (Late st Contact Info) Description 07/13/2020 Prep for Surgery [facility] Plastic Surgery 45 [facility] 2nd [place] [address] Margaret Sheppard, TAMIKO [address] [place] [phone] [email or web address] Neurofibromatosis, type 1 (Primary Dx) [...] Description 03/17/2025 2:30 PM EST Office Visit [facility] for Neuro Oncology 32 [facility], 9th Floor, [address] [place] [address] Anthony Oglesby MD 55 [facility] 9 [place] [address] [email or web address] 04/01/2025 1:20 PM EST Office Visit [facility] 243 [facility] 1st [place] [address] Boris Hansen MD 243 [place] [address] [place]@[facility] 04/01/2025 1:40 PM EST Appointment [facility] [address] [address] 04/16/2025 11:15 AM EST Office Visit [facility] Plastic Surgery [address] [address] Herminia Mclain MD 75 [place] [address] [email or web address] Scheduled Procedures Name Priority Associated [...] documented as of this encounter Care Teams Wire Winder Relationship Specialty Start Date End Date Winifred Fenton MD [address] [address] PCP - General Internal Medicine 10/09/17 Yasmany Richards MD STARR@[facility].[place].[facility] Primary Oncologist Neurology 07/10/1811/19 Anthony Oglesby MD 55 [facility] 9 [place] [address] MAK@[facility] Neurology 11/20/24 documented as of this encounter Additional Source Comments The information contained in this document represents components of the legal health record. It is not the complete legal health record.[facility]
--- OUTSIDE RECORDS SUMMARY | 2025-03-02 16:30 | XMS_ITS | Encounter Summary ---
Author Organization [employer] Address [address] [facility] 7t [place] [address] Care Team Providers Care Easement Man Name Role Phone Winifred Fenton MD Primary Care Provider Ion Cobos RN Unavailable [phone] Kobe Gilmore Unavailable Encounter Details Date Type Department Care Team ([facility] st Contact Info) Description 02/22/2024 Orders Only [facility] MED & PEDS [address] [place], [place] [phone] Winifred Fenton MD 505 [place] [address] Depressed mood (Primary Dx) Social History Tobacco [...] Upcoming Encounters Date Type Department Care Team ([facility] st Contact Info) Description 03/03/2025 2:45 PM EST Office Visit [facility] MED [facility]S [address] [place] [address] Winifred Fenton MD 505 [place] [address] documented as of this encounter Visit Diagnoses Diagnosis Depressed mood- Primary documented in this encounter Additional Health Concerns Assessment Noted Time PHQ-9 Depression Total Score: 17 024 2:29 PM EDT documented as of this encounter Care Teams Easement Man Relationship Specialty Start Date End Date Winifred Fenton MD 505 [place] [address] PCP - General Internal Medicine 09/13/17 Ion Cobos, RN 505 [place] [address] Registered Nurse Family Medicine 01/26/25 Kobe Gilmore 01/26/25 Giovanni Randhawa Neurology TeacherCity Distribution Clerk 3/25/24 documented as of this encounter
--- OUTSIDE RECORDS SUMMARY | 2025-03-02 16:30 | XMS_ITS | Encounter Summary ---
Author Organization [employer] Address [address] [place] [address] 7 [place] [address] Care Team Providers Care Costume Director Name Role Phone Winifred Fenton MD Primary Care Provider [phone] Ion Cobos RN Unavailable [phone] Kobe Gilmore Unavailable Reason for Referral * Consultation (Routine) - Closed Specialty Diagnoses / Procedures Referred By Ping hunter Referred To Contact Physical Therapy Diagnoses Neurofibromatosis, type 1 (CMS/HCC) (HCC) Lumbar radiculopathy Winifred Fenton MD 505 [place] [address] Phone: tel: fax: [facility] Physical Therapy [address] [place] [address] Phone: tel: fax: Referral ID Status Reason Start Date Expiration Date V isits Requested Visits Authorized [id number] Closed Specialty Services Required 03/12/2024 03/12/2025 1 1 Encounter Details Date Type Department Care Team (Late st Contact Info) Description 03/12/2024 Orders Only [facility] CH[facility] MED & PEDS [address] [place] [address] [phone] Winifred Fenton MD [address] [place], [place] [phone] Neurofibromatosis, type 1 (CMS/HCC) (Primary Dx); Lumbar [...] Upcoming Encounters Date Type Department Care Team ([facility] st Contact Info) Description 03/03/2025 2:45 PM EST Office Visit [facility] MED & PEDS 505 [place] [address] Winifred Fenton MD 505 [place] [address] Scheduled Referrals Name Type Priority Associated Diagnoses [...] documented as of this encounter Care Teams Costume Director Relationship Specialty Start Date End Date Winifred Fenton MD [address] [place] [address] PCP - General Internal Medicine 09/13/17 Ion Cobos RN [address] [place] [address] Registered Nurse Family Medicine 01/26/25 Kobe Gilmore 01/26/25 Giovanni Randhawa Satellite TechnicianResidential Appraiser 07/23/23 documented as of this encounter
--- OUTSIDE RECORDS SUMMARY | 2025-03-02 16:30 | XMS_ITS | Encounter Summary ---
Author Organization [facility] Address [address] [place] [address] Care Team Providers Care Report Developer Name Role Phone Huyen Salgado PA-C Primary Care Provider [phone] Encounter Details Date Type Department Care Team (Late st Contact Info) Description 01/25/2017 / Visits [facility] [address] [place] [address] Zach Perez [address] [place], [place] [phone] Social History Tobacco Use Types Packs/Day Years [...] on filedocumented in this encounter Care Teams Report Developer Relationship Specialty Start Date End Date Huyen Salgado PA-C [facility]9 [place] [address] PCP - General Internal Medicine 04/20/17 08/23/18 documented as of this encounter
--- OUTSIDE RECORDS SUMMARY | 2025-03-02 16:30 | XMS_ITS | Encounter Summary ---
Author Organization [facility] Address [address] [place] [address] [place] [address] Phone Care Team Providers Care Aviation Electronics Technician Name Role Phone Winifred Fenton MD Primary Care Pr ovider Yasmany Richards MD Unavailable MAVIS Juarez@[email or web address] Anthony Oglesby MD Unavailable Encounter Details Date Type Department Care Team (Late st Contact Info) Description 03/08/2020 Telephone [facility] [address] 1st [place] [address] Damon Chapa@[email or web address] Social History Tobacco Use Types Packs/Day Years [...] 03/17/2025 2:30 PM EST Office Visit [facility] for Neuro Oncology 32 [facility], 9th Floor, [address] [place] [address] Anthony Oglesby MD [address] [address] [email or web address] 04/01/2025 1:20 PM EST Office Visit [address] [address] Boris Hansen MD [address] [place] [address] [place]@[facility] 04/01/2025 1:40 PM EST Appointment [address] [place] [address] 04/16/2025 11:15 AM EST Office Visit [facility] Plastic Surgery [address] [address] Herminia Mclain MD 75 [place] [address] [email or web address] Scheduled Procedures Name Priority Associated Diagnoses Date/Ti me 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 Visit Diagnoses Not on filedocumented in this encounter Additional Health Concerns Infection Onset Date Last Indicated Resolved Time MRSA 04/09/2021 04/09/2021 04/09/2023 1:21 AM EST CoV-Risk 09/22/2021 09/22/2021 10/03/2021 1:24 AM EDT documented as of this encounter Care Teams Aviation Electronics Technician Relationship Specialty Start Date End Date Winifred Fenton MD [address] [place] [address] PCP - General Internal Medicine 10/09/17 Yasmany Richards MD STARR@[email or web address] Primary Oncologist Neurology 07/10/1811/19 Anthony Oglesby MD 55 [facility] 9 [place] [address] [email or web address] Neurology 11/20/24 documented as of this encounter Additional Source Comments The information contained in this document represents components of the legal health record. It is not the complete legal health record.[facility]
--- OUTSIDE RECORDS SUMMARY | 2025-03-02 16:30 | XMS_ITS | Encounter Summary ---
Author Organization [facility] Address [address] [place] [address] [place] [address] Phone Care Team Providers Care Band Cutting Machine Operator Name Role Phone Ania Wilburn MD Primary Care P rovider Naedge Rutledge PA-C Primary Care Provider U Winifred Parish MD Primary Care Pr ovider Yasmany Richards MD Unavailable MAVIS Juarez@[facility] Anthony Oglesby MD Unavailable Encounter Details Date Type Department Care Team (Late st Contact Info) Description 05/18/2016 Procedure Pass [facility] Periop 75 [place] [address] Social History Tobacco Use Types Packs/Day Years [...] Description 03/17/2025 2:30 PM EST Office Visit [facility] 32 [facility], 9th Floor, [address] [place] [address] Anthony Oglesby MD 55 [facility] 9 [place] [address] [email or web address] 04/01/2025 1:20 PM EST Office Visit [facility] 243 [facility] 1st [place] [address] Boris Hansen MD 243 [place] [address] [place]@[facility] 04/01/2025 1:40 PM EST Appointment [facility] [address] [address] 04/16/2025 11:15 AM EST Office Visit [facility] Plastic Surgery [address] [address] Herminia Mclain MD 75 [place] [address] [email or web address] Scheduled Procedures Name Priority Associated Diagnoses Date/Ti me 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 Visit Diagnoses Not on filedocumented in this encounter Additional Health Concerns Infection Onset Date Last Indicated Resolved Time MRSA 04/09/2021 04/09/2021 04/09/2023 1:21 AM EST CoV-Risk 09/22/2021 09/22/2021 10/03/2021 1:24 AM EDT documented as of this encounter Care Teams Band Cutting Machine Operator Relationship Specialty Start Date End Date Ania Wilburn MD 1145 [facility] 205 [place] [address] PCP - General Internal Medicine 07/27/15 12/14/16 Nadege Rutledge PA-C PCP - General Internal Medicine 12/15/16 10/08/17 Winifred Fenton MD 230 [facility] 1 [place] [address] PCP - General Internal Medicine 10/09/17 Yasmany Richards MD [email or web address] Primary Oncologist Neurology 07/10/1811/19 Anthony Oglesby MD 55 [facility] 9 [place] [address] MAK@[facility].[place].[facility] Neurology 11/20/24 documented as of this encounter Additional Source Comments The information contained in this document represents components of the legal health record. It is not the complete legal health record.[facility]
--- OUTSIDE RECORDS SUMMARY | 2025-03-02 16:30 | XMS_ITS | Clinical Summary ---
Author Organization [facility] Address [address] [place] [address] Care Team Providers Care Media Relations Associate Name Role Phone Winifred Fenton MD Primary Care Provider [phone] Social History Tobacco Use Types Packs/Day Years [...] of 3 - 19+ 3-dose series) 02/04/2011 HPV Vaccines (1 - 3-dose SCD M series) 02/04/2019 HIV Screening 04/02/2022 Hepatitis C Screening 04/02/2022 Social Influencers of Health Screening 04/02/2022 Depression Screening 04/30/2024 COVID-19 Vaccine (1 - 2023-2 5 season) 2024 Influenza Vaccine [...] age to complete this topic Care Teams Media Relations Associate Relationship Specialty Start Date End Date Winifred Fenton MD [address] [place] [address] PCP - General Internal Medicine 08/18/19
--- OUTSIDE RECORDS SUMMARY | 2025-03-02 16:30 | XMS_ITS | Encounter Summary ---
Author Organization [facility] Address [address] [place] [address] Phone Care Team Providers Care Pens And Pencils Dipper Name Role Phone Winifred Fenton MD Primary Care Pr ovider Yasmany Richards MD Unavailable MAVIS Juarez@[email or web address] Anthony Oglesby MD Unavailable Reason for Visit * Reason Comments Med Change Request Encounter Details Date Type Department Care Team (Late st Contact Info) Description 05/03/2022 [facility] [address] [place] [address] Boris Hansen MD [address] [place] [address] [place]@[facility] Med Change Request Social History Tobacco Use [...] Description 03/17/2025 2:30 PM EST Office Visit [facility] for Neuro Oncology [address] [facility], 9th Floor, [address] [place] [address] Anthony Oglesby MD 55 [facility] 9 [place] [address] [email or web address] 04/01/2025 1:20 PM EST Office Visit [facility] 243 [facility] 1st [place] [address] Boris Hansen MD 243 [place] [address] [place]@[facility] 04/01/2025 1:40 PM EST Appointment [facility] [address] [address] 04/16/2025 11:15 AM EST Office Visit [facility] Plastic Surgery [address] [address] Herminia Mclain MD 75 [place] [address] [email or web address] Scheduled Procedures Name Priority Associated Diagnoses Date/Ti me 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 Visit Diagnoses Not on filedocumented in this encounter Additional Health Concerns Infection Onset Date Last Indicated Resolved Time MRSA 04/09/2021 04/09/2021 04/09/2023 1:21 AM EST documented as of this encounter Care Teams Pens And Pencils Dipper Relationship Specialty Start Date End Date Winifred Fenton MD [address] [place] [address] PCP - General Internal Medicine 10/09/17 Yasmany Richards MD STARR@[email or web address] Primary Oncologist Neurology 07/10/1811/19 Anthony Oglesby MD [address] [place] [address] 9 [place] [address] [email or web address] Neurology 11/20/24 documented as of this encounter Additional Source Comments The information contained in this document represents components of the legal health record. It is not the complete legal health record.[facility]
--- OUTSIDE RECORDS SUMMARY | 2025-03-02 16:31 | XMS_ITS | Encounter Summary ---
Author Organization [facility] Address [address] [place] [address] [place] [address] Phone Care Team Providers Care Ceramics Technician Name Role Phone Winifred Fenton MD Primary Care Pr ovider Yasmany Richards MD Unavailable MAVIS Juarez@[facility].[facility] Anthony Oglesby MD Unavailable Encounter Details Date Type Department Care Team (Late st Contact Info) Description 08/16/[address] [facility] PERIOPER[facility]IVE DEPT [address] [place] [id number] Social History Tobacco Use Types Packs/Day Years [...] Medical Center Center for Neuro Oncology 32 [facility], 9th Floor, [address] [place] [address] Anthony Oglesby MD 55 [facility] 9 [place] [address] [email or web address] 04/01/2025 1:20 PM EST Office Visit [address] [address] Boris Hansen MD [address] [place] [address] [place]@[facility] 04/01/2025 1:40 PM EST Appointment [address] [address] 04/16/2025 11:15 AM EST Office Visit [facility] Plastic Surgery 45 [facility] 2nd [place] [address] Herminia Mclain MD 75 [place] [address] [email or web address] Scheduled Procedures Name Priority Associated Diagnoses Date/Ti me 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.[place].[facility] Primary Oncologist Neurology 07/10/1811/19 Anthony Oglesby MD [address] [place] [address] 9 [place] [address] MAK@[email or web address] Neurology 11/20/24 documented as of this encounter Additional Source Comments The information contained in this document represents components of the legal health record. It is not the complete legal health record.[facility]
--- OUTSIDE RECORDS SUMMARY | 2025-03-02 16:31 | XMS_ITS | Encounter Summary ---
Author Organization [facility] Address [address] [place] [address] [place] [address] Phone Care Team Providers Care Teacher Of The Hearing Impaired Name Role Phone Winifred Fenton MD Primary Care Pr ovider Yasmany Richards MD Unavailable MAVIS Juarez@[email or web address] [place] [place] Anthony Oglesby MD Unavailable Encounter Details Date Type Department Care Team (Late st Contact Info) Description 08/10/2020 Procedure Pass [facility] [address] [place] [address] Social History Tobacco Use Types Packs/Day Years [...] Description 03/17/2025 2:30 PM EST Office Visit [facility] Center for Neuro Oncology 32 [facility], 9th Floor, [address] [place] [address] Anthony Oglesby MD [address] [address] [email or web address] [place] [place] 04/01/2025 1:20 PM EST Office Visit [address] [address] Boris Hansen MD [address] [place] [address] [place]@[facility] 04/01/2025 1:40 PM EST Appointment [address] [address] 04/16/2025 11:15 AM EST Office Visit [facility] Plastic Surgery 45 [facility] 2nd [place] [address] Herminia Mclain MD 75 [place] [address] [email or web address] Scheduled Procedures Name Priority Associated Diagnoses Date/Ti me 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 Visit Diagnoses Not on filedocumented in this encounter Additional Health Concerns Infection Onset Date Last Indicated Resolved Time MRSA 04/09/2021 04/09/2021 04/09/2023 1:21 AM EST CoV-Risk 09/22/2021 09/22/2021 10/03/2021 1:24 AM EDT documented as of this encounter Care Teams Teacher Of The Hearing Impaired Relationship Specialty Start Date End Date Winifred Fenton MD [address] [place] [address] PCP - General Internal Medicine 10/09/17 Yasmany Richards MD STARR@[email or web address] [place] [place].[facility] Primary Oncologist Neurology 07/10/1811/19 Anthony Oglesby MD [address] [place] [address] 9 [place] [address] MAK@[email or web address] Neurology 11/20/24 documented as of this encounter Additional Source Comments The information contained in this document represents components of the legal health record. It is not the complete legal health record.[facility]
--- OUTSIDE RECORDS SUMMARY | 2025-03-02 16:31 | XMS_ITS | Encounter Summary ---
Author Organization [facility] Address [address] [place] [address] [place] [address] Phone Care Team Providers Care Irish Moss Operator Name Role Phone Winifred Fenton MD Primary Care Pr ovider Yasmany Richards MD Unavailable MAVIS Juarez@[facility] Anthony Oglesby MD Unavailable Encounter Details Date Type Department Care Team (Late st Contact Info) Description 07/27/2023 Procedure Pass [facility] [address] [place] [phone] Social History Tobacco Use Types Packs/Day Years [...] Description 03/17/2025 2:30 PM EST Office Visit [facility] Center for Neuro Oncology 32 [facility], 9th Floor, [address] [place] [address] Anthony Oglesby MD [address] [address] 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 Primary Oncologist Neurology 07/10/1811/19 Anthony Oglesby MD [address] [place] [address] 9 [place] [address] MAK@[email or web address] Neurology 11/20/24 documented as of this encounter Additional Source Comments The information contained in this document represents components of the legal health record. It is not the complete legal health record.[facility]
--- OUTSIDE RECORDS SUMMARY | 2025-03-02 16:31 | XMS_ITS | Encounter Summary ---
Author Organization [facility] Address [address] [place] [address] [place] [address] Phone Care Team Providers Care Art Manager Name Role Phone Winifred Fenton MD Primary Care Pr ovider Yasmany Richards MD Unavailable MAVIS Juarez@[email or web address] Anthony Oglesby MD Unavailable Encounter Details Date Type Department Care Team (Late st Contact Info) Description 07/10/2023 Procedure Pass [facility], [address] [address] Social History Tobacco Use Types Packs/Day Years [...] AM MILET Lamine Valenzuela MD * Patient is blind [...] Description 03/17/2025 2:30 PM EST Office Visit [facility] Center for Neuro Oncology 32 [facility], 9th Floor, [address] [place] [address] Anthony Oglesby MD 55 [facility] 9 [place] [address] [email or web address] 04/01/2025 1:20 PM EST Office Visit [address] 1st [place] [address] Boris Hansen MD 243 [place] [address] [place]@[facility] 04/01/2025 1:40 PM EST Appointment [facility] [address] [address] 04/16/2025 11:15 AM EST Office Visit [facility] Plastic Surgery [address] [address] Herminia Mclain MD 75 [place] [address] [email or web address] Scheduled Procedures Name Priority Associated Diagnoses Date/Ti me 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 9 [place] [address] [email or web address] Neurology 11/20/24 documented as of this encounter Additional Source Comments The information contained in this document represents components of the legal health record. It is not the complete legal health record.[facility]
--- OUTSIDE RECORDS SUMMARY | 2025-03-02 16:31 | XMS_ITS | Clinical Summary ---
Author Organization [employer] Address 75 [facility] 7t [place] [address] Care Team Providers Care Ore Charger Name Role Phone Winifred Fenton MD Primary Care Provider [phone] Ion Cobos RN Unavailable [phone] Kobe Gilmore Unavailable Allergies Active Allergy Reactions Criticality Noted [...] hours. 270 capsule 11 04/25/20 23 Active topiramate (Topamax) 100 MG tablet Take [...] at bedtime. 30 tablet 11 02/27/20 24 Active lisinopril 20 MG tabletIndication s:Primary hypertension Take 1 tablet (20 mg) by mouth Once per day. 90 tablet 3 02/27/20 24 Active albuterol (Ventolin HFA) 108 (90 Base) MCG/ACT inhalerIndicatio ns:Moderate persistent asthma, unspecified whether complicated INHALE 2 PUFFS INTO THE LUNGS EVERY 4 TO 6 HOURS NEEDED. 18 g 3 07/09/19 25 Active Breo Ellipta 100-25 MCG/ACT aerosol [...] SAME TIME. 28 patch 08/16/19 25 Active lidocaine (Lidoderm) 5 % patchIndications :Lumbar disc herniation Apply 1 patch topically Once per day. Remove & discard patch within 12 hours or as directed by . 30 patch 3 10/14/19 25 Active Tirzepatide-Weig ht Management (Zepbound) 2.5 MG/0.5ML solution auto-injectorInd ications:Class 1 obesity due to excess calories with serious comorbidity and body mass index (BMI) of 31.0 to 31.9 in adult Inject 0.5 mL (2.5 mg) under the skin 1 (one) time per week. 2 mL 1 10/14/19 25 Active phentermine 8 MG tabletIndication s:Class 1 obesity due to excess calories with serious comorbidity and body mass index (BMI) of 30.0 to 30.9 in adult Take 1 tablet (8 mg) by mouth Once per day. 28 tablet 01/20/20 25 Active topiramate (Topamax) 25 MG tabletIndication s:Lumbar disc herniation,Lumba r radiculopathy,Pr imary hypertension,Cla ss 1 obesity due to excess calories with serious comorbidity and body mass index (BMI) of 30.0 to 30.9 in adult Take 1 tablet (25 mg) by mouth every 12 (twelve) hours. 60 tablet 11 01/20/20 25 2025 Active Diclofenac Sodium 1 % gelIndications:L umbar disc herniation To apply to the affected area 3 times a day 100 g 01/20/20 25 Active nicotine (Nicoderm, Step 1) 21 MG/24HR patchIndications :Smoking addiction PLACE 1 PATCH ON THE SKIN 1 TIME EACH DAY AT THE SAME TIME. 28 patch 02/14/20 25 Active meloxicam (Mobic) 15 MG tabletIndication s:Lumbar disc herniation Take 1 tablet (15 mg) by mouth Once per day. 30 tablet 11 02/27/20 24 2024 nicotine (Nicoderm, Step 1) 21 MG/24HR patchIndications :Smoking addiction PLACE 1 PATCH ON THE SKIN 1 TIME EACH DAY AT THE SAME TIME. 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 O2 sat 93%. Treated with Albuterol x 3 and Prednisone in ED. CRX neg. Discharged with Albuterol and prednisone 20 mg BID x 5 days. 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 Yasmany Richards at [facility] for neurofibromatosis 01/30/17 NF clinic - potential new treatment for plexiform neurofibromas was discussed with pt (selumetinib). Dr. Richards will try to get off label approval for this therapy. Pt has F/U appt in 6 months and had an appt for ECHO on 05/16/17 to determine whether he can tolerate this treatment . 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 Waiting for non-FDA approved drug (Selumetinib) for get approved vs for the NF Binimetinib trial to open at [facility] (within several months). Recommend increasing Duloxetine for his ongoing depression and back pain. Will order MRI to look for tumors of R middle finger. F/U 3 mos. 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 S/p multiple debulking surgeries left facial NF most recent 05/18/16 at [facility] Encounters Date Type Department Care Team Description 03/02/2025 Telephone [facility] [address] [place] [address] Winifred Fenton MD Chart Prep 02/27/2025 Patient Outreach [address] [address] Winifred Fenton MD Care Coordination ([facility]DOM Gilmore, outreach #[id number]_lvm ) 02/24/2025 Patient Outreach [address] [address] Winifred Fenton MD Pre-visit Planning (Pre visit planning LVM ) 02/13/2025 Refill [facility] [address] [place] [address] Winifred Fenton MD Smoking addiction 02/12/2025 Patient Outreach [address] [address] Winifred Fenton MD Care Coordination ([facility]DOM Gilmore, outreach #3_lvm ) 2025 Patient Outreach [address] [address] Winifred Fenton MD Care Coordination ([facility]/DOM Gilmore, TC #2_lvm) 01/26/2025 Patient Outreach [address] [address] Winifred Fenton MD Care Coordination (C3/W Kobe Gilmore, initial outreach_lvm ) 01/26/2025 Patient Outreach [address] [address] Winifred Fenton MD Care Coordination (C3/W Kobe Gilmore, Chart review ) 01/26/2025 Patient Outreach [facility] [address] [place] [address] Winifred Fenton MD Care Coordination (C3- chart review) 01/26/2025 Patient Outreach [address] [address] Winifred Fenton MD 01/24/2025 Orders Only [facility] External Provider, [facility] 01/20/2025 Patient Outreach [address] [address] Garett Wang Care Coordination ([facility] outreach for SDOH PT-1 and food needs-referral completed /) 01/19/2025 1:00 PM EDT Office Visit [facility] [address] [place] [address] Winifred Fenton MD Lumbar disc herniation (Primary Dx); Lumbar radiculopathy; Primary hypertension; Class 1 obesity due to excess calories with serious comorbidity and body mass index (BMI) of 30.0 to 30.9 in adult; Lumbar disc herniation; Encounter for immunization 01/19/2025 Travel 01/12/2025 Refill [facility] [address] [place] [address] Winifred Fenton MD Smoking addiction 01/06/2025 Patient Outreach [facility] [address] [place] [address] Winifred Fenton MD Care Coordination ([facility] outreach for SDOH PT-1 and food needs-referral completed /) 12/15/2024 Refill [facility] [address] [place] [address] Winifred Fenton MD Smoking addiction from Last 3 Months Immunizations Immunization Administration [...] Upcoming Encounters Date Type Department Care Team ([facility] st Contact Info) Description 03/03/2025 2:45 PM EST Office Visit [facility] [address] [place] [address] Winifred Fenton MD [address] [place] [address] Health Maintenance Due Date Last Done Comments HIV Screening 1992 Disability Screening 1992 Alcohol/Substance Use Screening 2004 Family Planning (PISQ) 02/04/2007 HPV Vaccines (1 - Male 3-dose series) 02/04/2007 Depression Monitoring 07/23/2024 01/24/2024, 024 SDOH Screening 11/18/2024 11/19/2023 COVID-19 Vaccine (3 - season) 2024 09/17/2020, 08/20/2020 Hepatitis B Vaccines (3 of 3 - 19+ 3-dose series) 03/16/2025 01/19/2025, 01/24/2024 DTaP/Tdap/Td Vaccines (2 - Td or Tdap) 10/16/2025 10/17/2015 Influenza Vaccine (#1) 2025 3, 01/22/2019, 03/08/2018, Additional history exists Postponed from [...] EDT Narrative 01/25/2025 12:27 AM EDT [address] [address] XRay Report Signed Patient: Angus Castro MR#: [id number] [birth year] : 1990 Acct:[id number] Age/Sex: 34 / M ADM Date: 01/24/25 Loc: HO.ED Attending Dr: Ordering Physician: Lita Johnson MD Date of Service: 01/25/25 Procedure(s): XR ankle LT min 3V Accession Number(s): [id number] cc: Winifred Fenton MD; Lita Johnson MD Reason for Exam: ankle rolled CLINICAL HISTORY: ankle rolled Exam: AP, lateral, and mortise views of the left ankle. Comparison: None provided. Findings: Bony alignment is anatomic. No acute fracture. Ankle mortise is intact. [id number] lateral soft tissue swelling. Impression: Lateral soft tissue swelling without fracture. This document has been electronically signed by: Shaun Cazares MD on 01/25/2025 00:25:27 Dictated By: Shaun Cazares MD Signed By: <Electronically signed by Shaun Cazares MD in OV> 01/25/25 0026 DD/ 0025 TD/TT: 01/25/25 [address] [place] Supervisor: Procedure Note Donothaileyinterpreter, Image - 01/25/[address] [address] XRay Report Signed Patient: Angus CastroMR#: [id number] [birth year] : 1990Acct:[id number] Age/Sex: 34 / MADM Date: 01/24/25 Loc: HO.ED Attending Dr: Ordering Physician: Lita Johnson MD Date of Service: 01/25/25 Procedure(s): XR ankle LT min 3V Accession Number(s): [id number] cc: Winifred Fenton MD; Lita Johnson MD Reason for Exam: ankle rolled CLINICAL HISTORY: ankle rolled Exam: AP, lateral, and mortise views of the left ankle. Comparison: None provided. Findings: Bony alignment is anatomic. No acute fracture. Ankle mortise is intact. Lidb-wq-[id number] lateral soft tissue swelling. Impression: Lateral soft tissue swelling without fracture. This document has been electronically signed by: Shaun Cazares MD on 01/25/2025 00:25:27 Dictated By: Shaun Cazares MD Signed By: <Electronically signed by Shaun Cazares MD in OV> 01/25/2525 DD/ TD/TT: 01/25/2524 [place] Supervisor: [facility] External Provider IMG XR PROCEDURES Final Result * HEPATITIS C AB W/REFL TO HCV RNA, QN, PCR (11/29/2021 9:28 AM EDT) HEPATITIS C ANTIBODY NON-REACT KIM NON-REACT KIM [facility] INDEX 0.10 <1.00 [facility] Comment: HCV antibody was non-reactive. There is no laboratory evidence of HCV infection. In most cases, no further action is required. However, if recent HCV exposure is suspected, a test for HCV RNA (test code 83767) is suggested. For additional information please refer to http://education.GroundWork.MakieLab/faq/LYY25f7 (This link is being provided for informational/ educational purposes only.) 11/29/2021 9:28 AM EDT Winifred Fenton MD HISTORICAL/NON ORDERABLE JONATHAN ROGERS Final Result [facility] Anywhere [address] * (ABNORMAL) LIPID PANEL, STANDARD (11/29/2021 9:28 AM EDT) Chol/HDLC Ratio 3.6 <5.0 (calc) [facility] Cholesterol, Total 129 <200 mg/dL [facility] HDL Cholesterol 36(L) > OR = 40 mg/dL [facility] LDL Cholesterol 72 mg/dL (calc) [facility] Comment: Reference range: <100 Desirable range <100 mg/dL for primary prevention; <70 mg/dL for patients with CHD or diabetic patients with > or = 2 CHD risk factors. LDL-C is now calculated using the Luis Alberto calculation, which is a validated novel method providing better accuracy than the Friedewald equation in the estimation of LDL-C. Pawel CINTRON et al. JHON. 2013;310(19): 3812-8400 (http://education.Chromasun/faq/YIX054) Non-HDL Cholesterol 93 <130 mg/dL (calc) [facility] Comment: For patients with diabetes plus 1 major ASCVD risk factor, treating to a non-HDL-C goal of <100 mg/dL (LDL-C of <70 mg/dL) is considered a therapeutic option. Triglycerides 127 <150 mg/dL [facility] 11/29/2021 9:28 AM EDT us Winifred Fenton MD LAB BLOOD ORDERABLES Final Result [facility] [address] from Last 3 Months or Most Recently Relevant to Health Maintenance Insurance [employer] C3 Care Teams Ore Charger Relationship Specialty Start Date End Date Winifred Fenton MD [address] [place] [address] PCP - General Internal Medicine 09/13/17 Ion Cobos, RENEE [address] [place] [address] Registered Nurse Family Medicine 01/26/25 Kobe Gilmore 01/26/25 Giovanni Randhawa Brim And Crown PresserInsect Control Inspector 07/23/23
--- OUTSIDE RECORDS SUMMARY | 2025-03-02 16:31 | XMS_ITS | Encounter Summary ---
Author Organization [facility] Address [address] [place] [address] [place] [phone] Phone Care Team Providers Care Supervisor Opening And Picking Name Role Phone Winifred Fenton MD Primary Care Pr ovider Yasmany Richards MD Unavailable MAVIS [email or web address] Anthony Oglesby MD Unavailable Encounter Details Date Type Department Care Team (Late st Contact Info) Description 07/26/2023 Procedure Pass [facility] [address] [facility], 6th [place] [address] Social History Tobacco Use Types Packs/Day Years [...] 6:14 PM EDT Patricia Alexander RN * Duncan Suicide Severity Rating Scale (Screener/Recent Self-Report) Question Answer Date of Assessment Author 1. Wish to be (Past 1 Month) No 07/26/2023 6:14 PM MILET Patricia Alexander RN 2. Non-Specific Active Suici emma Thoughts (Past 1 Month) No 07/26/2023 6:14 PM MILET Patricia Alexander RN 6. Suicidal Behavior (Lifetime) No 6:14 PM Patricia Ramos RN documented as of this encounter Mental Status * Patient has serious difficulty concentrating, remembering, or making decisions due to physical, mental, or emotional condition Answer Entry Date Author No 11/23/2015 9:40 AM Lamine Kowalski MD documented in this encounter Plan of Treatment Upcoming Encounters Date Type Department Care Team (Late st Contact Info) Description 03/17/2025 2:30 PM EST Office Visit [facility] [address] [facility], 9th Floor, [address] [place] [address] Anthony Oglesby MD 55 [facility] YA 9 [place] [address] [email or web address] 04/01/2025 1:20 PM EST Office Visit [address] 1st [place] [address] Boris Hansen MD [address] [place] [address] [email or web address] 04/01/2025 1:40 PM EST Appointment [facility] [address] [address] 04/16/2025 11:15 AM EST Office Visit [facility] Plastic Surgery [address] [address] Herminia Mclain MD 75 [place] [address] [email or web address] Scheduled Procedures Name Priority Associated Diagnoses Date/Ti me 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 Visit Diagnoses Not on filedocumented in this encounter Care Teams Supervisor Opening And Picking Relationship Specialty Start Date End Date Winifred Fenton MD [address] [address] PCP - General Internal Medicine 10/09/17 Yasmany Richards MD [email or web address] Primary Oncologist Neurology 07/10/1811/19 Anthony Oglesby MD 55 [facility] YA 9 [place] [address] [email or web address] Neurology 11/20/24 documented as of this encounter Additional Source Comments The information contained in this document represents components of the legal health record. It is not the complete legal health record.[facility]
--- OUTSIDE RECORDS SUMMARY | 2025-03-02 16:31 | XMS_ITS | Encounter Summary ---
Author Organization [facility] Address [address] [place] [address] [place] [address] Phone Care Team Providers Care Product Manager Name Role Phone Winifred Fenton MD Primary Care Pr ovider Yasmany Richards MD Unavailable MAVIS [email or web address] Anthony Oglesby MD Unavailable Encounter Details Date Type Department Care Team (Late st Contact Info) Description 06/16/2020 Procedure Pass [facility], [address] [address] Social History Tobacco Use Types Packs/Day Years [...] [facility], 9th Floor, [address] [place] [address] Anthony Oglesby MD [address] [address] [email or web address] 04/01/2025 1:20 PM EST Office Visit [address] [address] Boris Hansen MD [address] [place] [address] [email or web address] 04/01/2025 1:40 PM EST Appointment [address] [address] 04/16/2025 11:15 AM EST Office Visit [facility] Plastic Surgery 45 [facility] 2nd [place] [address] Herminia Mclain MD 75 [place] [address] [email or web address] Scheduled Procedures Name Priority Associated Diagnoses Date/Ti me 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 Visit Diagnoses Not on filedocumented in this encounter Additional Health Concerns Infection Onset Date Last Indicated Resolved Time MRSA 04/09/2021 04/09/2021 04/09/2023 1:21 AM EST CoV-Risk 09/22/2021 09/22/2021 10/03/2021 1:24 AM EDT documented as of this encounter Care Teams Product Manager Relationship Specialty Start Date End Date Winifred Fenton MD [address] [place] [address] PCP - General Internal Medicine 10/09/17 Yasmany Richards MD [email or web address] Primary Oncologist Neurology 07/10/1811/19 Anthony Oglesby MD [address] [place] [address] 9 [place] [address] [email or web address] Neurology 11/20/24 documented as of this encounter Additional Source Comments The information contained in this document represents components of the legal health record. It is not the complete legal health record.[facility]
--- OUTSIDE RECORDS SUMMARY | 2025-03-02 16:31 | XMS_ITS | Encounter Summary ---
Author Organization [facility] Address [address] [place] [address] [place] [address] Phone Care Team Providers Care Mattress Stuffer Name Role Phone Winifred Fenton MD Primary Care Pr ovider Yasmany Richards MD Unavailable MAVIS [email or web address] Anthony Oglesby MD Unavailable Encounter Details Date Type Department Care Team (Late st Contact Info) Description 01/25/2023 Procedure Pass [facility] [address] [place] [address] Social History Tobacco Use Types Packs/Day Years [...] Author No 11/23/2015 9:40 AM MILET Lamine Valenzueal MD * Patient is blind or has [...] 2:30 PM EST Office Visit [facility] 32 [facility], 9th Floor, [address] [place] [address] Anthony Oglesby MD 55 [facility] YA 9 [place] [address] [email or web address] 04/01/2025 1:20 PM EST Office Visit [address] 1st [place] [address] Boris Hansen MD [address] [place] [address] [email or web address] 04/01/2025 1:40 PM EST Appointment [facility] [address] [address] 04/16/2025 11:15 AM EST Office Visit [facility] Plastic Surgery [address] [address] Herminia Mclain MD 75 [place] [address] [email or web address] Scheduled Procedures Name Priority Associated Diagnoses Date/Ti me 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 Visit Diagnoses Not on filedocumented in this encounter Additional Health Concerns Infection Onset Date Last Indicated Resolved Time MRSA 04/09/2021 04/09/2021 04/09/2023 1:21 AM EST documented as of this encounter Care Teams Mattress Stuffer Relationship Specialty Start Date End Date Winifred Fenton MD [address] [address] PCP - General Internal Medicine 10/09/17 Ysamany Richards MD [email or web address] Primary Oncologist Neurology 07/10/1811/19 Anthony Oglesby MD 55 [facility] YA 9 [place] [address] [email or web address] Neurology 11/20/24 documented as of this encounter Additional Source Comments The information contained in this document represents components of the legal health record. It is not the complete legal health record.[facility]
--- OUTSIDE RECORDS SUMMARY | 2025-03-02 16:31 | XMS_ITS | Encounter Summary ---
Author Organization [facility] Address [address] [facility] [address] [place] [address] Phone Care Team Providers Care Machine Puller Name Role Phone Winifred Fenton MD Primary Care Pr ovider Yasmany Richards MD Unavailable MAVIS [email or web address] Anthony Oglesby MD Unavailable Encounter Details Date Type Department Care Team (Late st Contact Info) Description 07/27/2023 Procedure Pass [facility], [place] [address] [facility], 2nd Floor, [address] [place] [address] Social History Tobacco Use Types Packs/Day Years [...] of Assessment Author No 11/23/2015 9:40 AM Laimne Kowalski MD * Patient has serious difficulty [...] [facility] 32 [facility], 9th Floor, [address] [place] [address] Anthony Oglesby MD [address] [address] [email or web address] 04/01/2025 1:20 PM EST Office Visit [address] [address] Boris Hansen MD [address] [place] [address] [email or web address] 04/01/2025 1:40 PM EST Appointment [address] [address] 04/16/2025 11:15 AM EST Office Visit [facility] Plastic Surgery [address] [address] Herminia Mclain MD 75 [place] [address] [email or web address] Scheduled Procedures Name Priority Associated Diagnoses Date/Ti me 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 Visit Diagnoses Not on filedocumented in this encounter Care Teams Machine Puller Relationship Specialty Start Date End Date Winifred Fenton MD [address] [place] [address] PCP - General Internal Medicine 10/09/17 Yasmany Richards MD [email or web address] Primary Oncologist Neurology 07/10/1811/19 Anthony Oglesby MD [address] [place] [address] 9 [place] [address] [email or web address] Neurology 11/20/24 documented as of this encounter Additional Source Comments The information contained in this document represents components of the legal health record. It is not the complete legal health record.[facility]
== END 2025-03-02 15:29 | disposition home or self-care (01) ==
LOC: HO.HPS 15:08
PROVIDERS: PCP Internal Medicine; Visit Provider Internal Medicine
DX: J45.909 Unspecified asthma, uncomplicated (principal); E66.9 Obesity, unspecified
CPT/HCPCS: 99213

== ENCOUNTER → 2025-03-02 15:08 | Outpatient (BNVA) | payer MEDICAID, SELFPAY | PROVIDERS: PCP Internal Medicine; Visit Provider Internal Medicine | DX: J45.909 Unspecified asthma, uncomplicated (principal); E66.9 Obesity, unspecified; Z68.33 Body mass index [BMI] 33.0-33.9, adult | CPT/HCPCS: 99212 ==